=== PATIENT | female | born 1945 | race Caucasian/White ===

== ENCOUNTER 2017-01-04 02:24 | Observation (INO) | payer MEDICARE, BC ==
[~2017-01-04] VITALS: Ht 165.1 cm; Wt 79.1 kg
[2017-01-04 02:43] LABS: BASOPHILS 0.3 % (0-2); HEMATOCRIT 41.4 % (36.0-48.0); HEMOGLOBIN 13.7 g/dL (12-16); IMMATURE GRANULOCYTES 0.3 % (0-5); LYMPHOCYTES 30.5 % (15-50); MCH 30.9 pg (26.0-34.0); MCHC 33.1 g/dL (31.0-37.0); MCV 93.5 fL (80.0-100.0); MONOCYTES 7.3 % (2-11); NEUTROPHILS 58.6 % (40-80); PLATELET COUNT 224 10x3/uL (130-400); RBC 4.43 10x6/uL (4.00-5.40); RDW 13.4 % (11.5-14.5); WBC 7.6 10x3/uL (4.8-10.8)
[2017-01-04 02:58] LABS: ALBUMIN 3.9 g/dL (3.4-5.0); ALKALINE PHOSPHATASE 83 U/L (46-116); ALT (SGPT) 27 U/L (10-68); BILIRUBIN - TOTAL 0.31 mg/dL (0.2-1.3); CALC OSMOLALITY 290 mosm/kg (275-300); CALCIUM 9.6 mg/dL (8.5-10.1); CARBON DIOXIDE 30.1 mmol/L (21.0-32.0); CHLORIDE - SERUM 105 mmol/L (98-107); CREATININE - SERUM 0.8 mg/dL (0.6-1.3); GLUCOSE 125 mg/dL (74-106); POTASSIUM - SERUM 3.5 mmol/L (3.5-5.1); PROTEIN - SERUM 7.9 g/dL (6.4-8.2); SODIUM 144 mmol/L (136-145); UREA NITROGEN 20 mg/dL (7-18); eGFR NON AFRICAN AMERICAN 74 mL/min (90-120)
[2017-01-04 03:15] LABS: APPEARANCE CLEAR (CLEAR); BILIRUBIN NEGATIVE (NEGATIVE); COLOR YELLOW (YELLOW); GLUCOSE NEGATIVE (NEGATIVE); KETONE NEGATIVE (NEGATIVE); LEUKOCYTE ESTERASE NEGATIVE (NEGATIVE); NITRITE NEGATIVE (NEGATIVE); PROTEIN NEGATIVE (NEGATIVE); UROBILINOGEN NORMAL (NORMAL)
[2017-01-04 03:17] LABS: CREATINE KINASE 220 UL (21-215)
[2017-01-04 03:25] LABS: TROPONIN-I < 0.017 ng/mL (0.000-0.060)
[2017-01-04 03:26] LABS: CKMB 1.8 U/L (0.0-3.6)
--- NOTE | 2017-01-04 08:43 | NUR ---
TRANSFER FROM ER BY STRETCHER. OREINTED TO ROOM. CALL LIGHT IN REACH. WILL CONT. PLAN OF CARE.
[2017-01-04] MEDS ORDERED: TOPROL XL50 MG PO (08:57)
[2017-01-04] MEDS ORDERED: VALIUM 2 MG TAB2 MG PO (08:59)
[2017-01-04] MEDS ORDERED: BAYER CHEWABLE81 MG PO (09:07)
[2017-01-04] MEDS ORDERED: MICARDIS40 MG PO (09:24)
[2017-01-04 09:50] VITALS: BP 186/88; Ht 165.1 cm; Wt 79.1 kg
--- NOTE | 2017-01-04 11:21 | NUR ---
ECHO STARTED AT BS.
[2017-01-04 11:59] VITALS: BP 164/89
[2017-01-04 16:38] VITALS: BP 146/74
[2017-01-04 21:28] VITALS: BP 149/72
[2017-01-05 00:44] VITALS: BP 150/72
[2017-01-05 05:25] VITALS: BP 149/78
[2017-01-05] MEDS ORDERED: VYTORIN 10-20 M1 TAB PO (07:33)
[2017-01-05 08:00] VITALS: BP 151/77
[2017-01-05 11:03] LABS: T4 THYROXIN - FREE 0.91 ng/dL (0.76-1.46); THYROID STIMULATING HORMONE 1.47 uIU/mL (0.36-3.74)
--- NOTE | 2017-01-05 11:54 | NUR ---
Patient Name: DUNIA MCCLAIN Encounter No: [id number] : 1945 Primary Insurance: MEDICARE A & B Anticipated DC Date: 01-05-2017 Planned Disposition: Home DISCHARGE PLANNING NOTE: * Is the patient Alert and Oriented? Yes 0 * How many steps to enter\exit or inside your home? NONE 0 * PCP DR. MÁRQUEZ 0 * Pharmacy [facility] [address] 0 * Preadmission Environment Home with Family 0 * ADLs Independent 0 * Equipment CPAP Oxygen 0 * Other Equipment HOME/PORTABLE OXYGEN - PURCHASED INDEPENDENTLY [facility] - MEDICAL EQUIPMENT PROVIDER 0 * List name and contact numbers for known caregivers / representatives who currently or will assist patient after discharge: MARY MCCLAIN, SPOUSE, 0 * Community resources currently utilized None 0 * Please name any agencies selected above. NONE 0 * Additional services required to return to the preadmission environment? No 0 * Can the patient safely return to the preadmission environment? Yes 0 * Has this patient been hospitalized within the prior 30 days at any hospital? No 0 CM MET WITH PT IN ROOM TO DISCUSS DISCHARGE PLANNING AND NEEDS. PT REPORTS LIVING AT HOME INDEPENDENTLY WITH HER SPOUSE. PT HAS NO HOME/PORTABLE OXYGEN THAT SHE PURCHASED AND CPAP FROM [facility]. PT HAS NO OUTSIDE SERVICES ASSISTING IN THE HOME. CM DISCUSSED AVAILABILITY OF HOME HEALTH, REHAB SERVICES AND MEDICAL EQUIPMENT. PT DENIES DISCHARGE NEEDS, REPORTS HER SPOUSE WILL PICK HER UP FOR DISCHARGE HOME.MEDICARE OUTPATIENT OBSERVATION NOTICE PROVIDED AND EXPLAINED. PT PLANS TO DISCHARGE HOME WITH SPOUSE, NO ANTICIPATED NEEDS. ALINA MARTIN, CASE MANAGEMENT
[2017-01-05 12:00] VITALS: BP 141/69
--- NOTE | 2017-01-05 13:38 | NUR ---
UP ADLIB IN ROOM. GAIT STEADY. TELEMETRY SR. WILL MONITOR NEEDS.
[2017-01-05 16:00] VITALS: BP 144/7
--- NOTE | 2017-01-05 19:00 | NUR ---
INITIAL ROUNDS MADE. PT SITTING UP IN BED WATCHING TV. NO NEEDS OR C/O VOICED AT THIS TIME. CALL LIGHT IN REACH. DISCUSSED PLAN OF CARE. WILL CONT TO MONITOR.
--- NOTE | 2017-01-05 20:35 | NUR ---
PT INQUIRING ABOUT CPAP AND IF SHE HAS ANOTHER EPISODE LIKE SHE'D HAD AT HOME. EXPLAINED PT WILL BE CONT MONITORED AND WE WOULD BE ABLE TO SEE THE CHANGES IN HER TELE. ALSO ENCOURAGED HER TO CALL US IF SHE STARTED FEELING THE PALPITATIONS.
[2017-01-05 21:41] VITALS: BP 132/68
[2017-01-06 01:03] VITALS: BP 132/75
--- NOTE | 2017-01-06 03:03 | NUR ---
RESTING WELL WITH EYES CLOSED, CONT TO MONITOR.
[2017-01-06 05:36] VITALS: BP 161/81
--- NOTE | 2017-01-06 06:45 | NUR ---
PT REPORTS HAVING TO TAKE CPAP OFF LAST NIGHT DUE TO HEADACHE.
[2017-01-06] MEDS ORDERED: CATAPRES0.1 MG PO (07:56)
[2017-01-06 08:00] VITALS: BP 148/89
--- NOTE | 2017-01-06 09:08 | NUR ---
IV AND TELEMETRY DCD. DC PLANS GIVEN. UNDERSTANDING VOICED. ESCORTED TO CAR BY W/C.
== END 2017-01-06 09:09 | disposition home or self-care (01) ==
LOC: D.ER 02:24 → D.M2 08:06 → OBSVTIME 08:07 → D.M2 01-06 09:09
PROVIDERS: Emergency Medicine; Family Medicine; ADMIT Family Medicine
DX: I47.1 Supraventricular tachycardia (principal); G47.33 Obstructive sleep apnea (adult) (pediatric)

== ENCOUNTER 2017-02-04 05:28 | Emergency (ER) | payer MEDICARE, BC ==
[2017-01-04 09:50] VITALS: BMI 28.8
[~2017-02-04 05:28] MED LIST: BAYER CHEWABLE81 MG PO; CATAPRES0.1 MG PO; MICARDIS40 MG PO; TOPROL XL50 MG PO; VALIUM 2 MG TAB2 MG PO; VYTORIN 10-20 M1 TAB PO
[2017-02-04 05:58] LABS: BASOPHILS 0.3 % (0-2); EOSINOPHILS 2.3 % (0-7); HEMATOCRIT 37.7 % (36.0-48.0); HEMOGLOBIN 12.2 g/dL (12-16); IMMATURE GRANULOCYTES 0.3 % (0-5); MCH 30.6 pg (26.0-34.0); MCHC 32.4 g/dL (31.0-37.0); MCV 94.5 fL (80.0-100.0); MEAN PLATELET VOLUME 10.3 fL (7.4-10.4); MONOCYTES 5.4 % (2-11); NEUTROPHILS 72.7 % (40-80); PLATELET COUNT 223 10x3/uL (130-400); RBC 3.99 10x6/uL (4.00-5.40); RDW 13.1 % (11.5-14.5); WBC 6.9 10x3/uL (4.8-10.8)
[2017-02-04 06:14] LABS: ALBUMIN 3.6 g/dL (3.4-5.0); ALKALINE PHOSPHATASE 77 U/L (46-116); ALT (SGPT) 22 U/L (10-68); BILIRUBIN - TOTAL 0.49 mg/dL (0.2-1.3); CALC OSMOLALITY 284 mosm/kg (275-300); CALCIUM 8.9 mg/dL (8.5-10.1); CHLORIDE - SERUM 104 mmol/L (98-107); CREATININE - SERUM 0.7 mg/dL (0.6-1.3); GLUCOSE 124 mg/dL (74-106); PROTEIN - SERUM 7.3 g/dL (6.4-8.2); SODIUM 142 mmol/L (136-145); UREA NITROGEN 15 mg/dL (7-18); eGFR NON AFRICAN AMERICAN 87 mL/min (90-120)
[2017-02-04 06:22] LABS: CHOL - HDL RATIO 3.2 ratio (2.3-4.1); CHOLESTEROL, TOTAL 151 mg/dL (0-200); CKMB 1.6 U/L (0.0-3.6); CREATINE KINASE 177 UL (21-215); HDL CHOLESTEROL 47 mg/dL (32-96); LDL CHOLESTEROL 80 mg/dL (0-100); LDL-HDL RATIO 1.7 ratio (1.5-3.5); TRIGLYCERIDE 122 mg/dL (30-200)
[2017-02-04 06:25] LABS: TROPONIN-I < 0.017 ng/mL (0.000-0.060)
== END 2017-02-04 06:40 | disposition home or self-care (01) ==
LOC: D.ER 05:28
PROVIDERS: Family Medicine
DX: R07.9 Chest pain, unspecified (principal); I10 Essential (primary) hypertension; R00.2 Palpitations; M54.9 Dorsalgia, unspecified

== ENCOUNTER → 2017-06-14 14:20 | Outpatient (CLI) | payer MEDICARE, BC ==
[2017-01-04 09:50] VITALS: BMI 28.8
== END | disposition home or self-care (01) ==
LOC: D.MAMMO 13:00
DX: Z12.31 Encounter for screening mammogram for malignant neoplasm of breast (principal)

== ENCOUNTER → 2018-09-12 10:29 | Outpatient (CLI) | payer MEDICARE, BC ==
[2017-01-04 09:50] VITALS: BMI 28.8
== END | disposition home or self-care (01) ==
LOC: D.MRI 10:29
PROVIDERS: ATTEND Family Medicine
DX: M51.36 Other intervertebral disc degeneration, lumbar region (principal)

== ENCOUNTER → 2018-09-19 08:19 | Outpatient (CLI) | payer MEDICARE, BC ==
[2017-01-04 09:50] VITALS: BMI 28.8
== END | disposition home or self-care (01) ==
LOC: D.MRI 08:19
PROVIDERS: ATTEND Family Medicine
DX: S32.10XA Unspecified fracture of sacrum, initial encounter for closed fracture (principal); X58.XXXA Exposure to other specified factors, initial encounter; R19.00 Intra-abdominal and pelvic swelling, mass and lump, unspecified site

== ENCOUNTER 2018-10-15 14:13 | Emergency (ER) | payer MEDICARE, BC ==
[2018-10-15] MEDS ORDERED: PERCOCET 10-321 EAC1 PO (17:20)
[2018-10-15] MEDS ORDERED: VALIUM 2 MG TAB2 MG PO (17:21)
[2018-10-15] MEDS ORDERED: OXYCODONE HCL E20 MG PO (17:46)
== END 2018-10-15 18:08 | disposition home or self-care (01) ==
LOC: D.ER 14:13
DX: S32.119A Unspecified Zone I fracture of sacrum, initial encounter for closed fracture (principal); S32.129A Unspecified Zone II fracture of sacrum, initial encounter for closed fracture; X58.XXXA Exposure to other specified factors, initial encounter; Y93.9 Activity, unspecified; Y92.9 Unspecified place or not applicable; M51.36 Other intervertebral disc degeneration, lumbar region; M47.896 Other spondylosis, lumbar region

== ENCOUNTER 2018-10-16 22:44 | Inpatient (IN) | payer MEDICARE, BC ==
[~2018-10-16] VITALS: Ht 165.1 cm; Wt 82.0 kg
--- NOTE | ~2018-10-16 | OP ---
PATIENT NAME: LEXIE MCCLAIN MEDICAL RECORD: [id number] :41 LOCATION:[id number] ADMISSION DATE:10/17/18 SURGEON: TOMAS ALMANZA MD DATE OF OPERATION: 10/27/2018 PREOPERATIVE DIAGNOSES: 1. Sacral mass. 2. B-cell lymphoma. 3. Metastatic cancer, in need of IV access for chemotherapy. POSTOPERATIVE DIAGNOSES: 1. Sacral mass. 2. B-cell lymphoma. 3. Metastatic cancer, in need of IV access for chemotherapy. PROCEDURES: 1. Placement of left infraclavicular PowerPort under fluoroscopic guidance. 2. Immediate surgeon interpretation of the fluoroscopic images. SURGEON: Tomas Almanza MD SOLAR ENERGY TECHNICIAN: None. BLOOD LOSS: Minimal. ANESTHESIA: General. COMPLICATIONS: None. The risks, possible complications, and alternatives to the procedure were explained to the patient. She elects to proceed. OPERATIVE COURSE: The patient was conveyed to the operating room electively on 10/27/2018. General anesthesia was induced by the anesthesia staff. The left chest and left neck were sterilely prepped and draped. No radiologist was present for this procedure. Static fluoroscopic images were obtained and are kept in the PACS system. The left internal jugular vein was interrogated by the hand-held ultrasound and was percutaneously accessed on the first try in an antegrade fashion. A guidewire was passed easily. This was visualized under fluoroscopy. A small skin yaritza was accomplished around the wire. A counterincision was accomplished in the left infraclavicular anterior-superior chest. Sharp dissection was carried down to the level of the pectoralis fascia. A subcutaneous pocket was created in a caudad direction. I removed some of the subcutaneous adipose tissue from between the port pocket and the skin. This is to allow for easier access of the port. Over the wire, I dilated with a dilator sheath. The dilator and wire were removed. I then tunneled the PowerPort catheter from the chest incision to the neck incision. Through the sheath, I advanced the PowerPort catheter to the cavoatrial junction. The Peel-Away sheath was then removed. I then shortened the catheter. It was attached to the PowerPort. The locking device was firmly engaged. The port was then placed in the subcutaneous pocket OPERATIVE REPORT [id number] LEXIE MCCLAIN and was sutured with 3-point fixation to the underlying pectoralis fascia with 3-0 Prolenes. I irrigated in the port pocket. There was no bleeding. Final fluoroscopic images revealed the tip of the PowerPort catheter at the cavoatrial junction. There was no apparent kinking or twisting of the PowerPort catheter. Another image was obtained over the left lung apex. There was no apparent radiographic evidence of complication. The neck incision was closed with interrupted intracuticular 3-0 Vicryls. The port site was closed with interrupted intracuticular 3-0 Vicryls and then a running intracuticular 4-0 Vicryl. I then accessed the port. It accessed easily. It aspirated blood. I then injected heparinized saline. I kept the port accessed. A sterile dressing was applied. The patient was then extubated and conveyed to the postanesthesia care unit, where she was in stable condition. TRANSINT:[id number] Voice Confirmation ID: [id number] DOCUMENT ID: [id number] TOMAS ALMANZA MD CC: JANESSA MULTANI MD and ZHOU MÁRQUEZ [id number] DICTATION DATE: 10/27/18 1352 BIAS CUTTER: 10/27/18 1841 ADM IN [facility] [address] [id number]
[~2018-10-16 22:44] MED LIST changes: +OXYCODONE HCL E20 MG PO; +PERCOCET 10-321 EAC1 PO
--- NOTE | 2018-10-16 23:49 | NUR ---
PT ASSISTED WITH BEDPAN. VOIDED APPROX 300ML. SPECIMEN TO LAB
[2018-10-16 23:52] LABS: BASOPHILS 0.5 % (0-2); EOSINOPHILS 2.1 % (0-7); HEMATOCRIT 35.2 % (36.0-48.0); HEMOGLOBIN 11.8 g/dL (12-16); IMMATURE GRANULOCYTES 0.2 % (0-5); LYMPHOCYTES 18.7 % (15-50); MCH 29.7 pg (26.0-34.0); MCHC 33.5 g/dL (31.0-37.0); MCV 88.7 fL (80.0-100.0); MEAN PLATELET VOLUME 10.3 fL (7.4-10.4); MONOCYTES 6.7 % (2-11); NEUTROPHILS 71.8 % (40-80); PLATELET COUNT 264 10x3/uL (130-400); RBC 3.97 10x6/uL (4.00-5.40); RDW 13.4 % (11.5-14.5); WBC 8.5 10x3/uL (4.8-10.8)
[2018-10-16 23:59] LABS: APPEARANCE CLEAR (CLEAR); BILIRUBIN NEGATIVE (NEGATIVE); COLOR YELLOW (YELLOW); GLUCOSE NEGATIVE (NEGATIVE); KETONE NEGATIVE (NEGATIVE); NITRITE NEGATIVE (NEGATIVE); PROTEIN NEGATIVE (NEGATIVE); SPECIFIC GRAVITY 1.005 (1.005-1.020); UROBILINOGEN NORMAL (NORMAL)
[2018-10-17 00:16] LABS: ALBUMIN 3.2 g/dL (3.4-5.0); ALKALINE PHOSPHATASE 81 U/L (46-116); ALT (SGPT) 17 U/L (10-68); BILIRUBIN - TOTAL 0.42 mg/dL (0.2-1.3); CALC OSMOLALITY 281 mosm/kg (275-300); CALCIUM 8.9 mg/dL (8.5-10.1); CARBON DIOXIDE 29.4 mmol/L (21.0-32.0); CHLORIDE - SERUM 102 mmol/L (98-107); CREATININE - SERUM 0.7 mg/dL (0.6-1.3); GLUCOSE 110 mg/dL (74-106); POTASSIUM - SERUM 4.2 mmol/L (3.5-5.1); PROTEIN - SERUM 7.1 g/dL (6.4-8.2); SODIUM 138 mmol/L (136-145); UREA NITROGEN 27 mg/dL (7-18); eGFR NON AFRICAN AMERICAN 86 mL/min (90-120)
[2018-10-17 00:26] LABS: CREATINE KINASE 153 UL (21-215); PRO BNP 243 pg/mL (0-450)
[2018-10-17 00:30] LABS: TROPONIN-I < 0.017 ng/mL (0.000-0.060)
--- NOTE | 2018-10-17 02:05 | NUR ---
PT ARRIVED TO M3 WITH HOSPITAL STAFF FROM ER. PT ALERT AND ORIENTED.
[2018-10-17 02:34] VITALS: BP 106/59; BMI 28.8
[2018-10-17] MEDS ORDERED: ZYRTEC10 MG PO (02:46)
[2018-10-17] MEDS ORDERED: OMEGA-3100 MG PO (02:46)
[2018-10-17] MEDS ORDERED: KRILL OIL 1,001 EAC1 PO (02:46)
[2018-10-17 05:49] VITALS: BP 113/56
--- NOTE | 2018-10-17 07:15 | NUR ---
AM ROUNDS- PT RESTING COMFORTABLY IN BED, EASILY AROUSES TO VOICE. RESP EVEN AND NONLABORED ON 2L. LT AC SL. PT A/O X4. ASKING FOR A CUP OF COFFEE, INFORMED PT THAT I WOULD HAVE TO MAKE SOME AND THEN I WOULD BRING IT TO HER. PT DENIES ANY OTHER NEEDS AT THIS TIME. BEDSIDE RAILS X2, CALL LIGHT IN REACH, FAMILY AT BEDSIDE, NAD NOTED, WILL CONTINUE PLAN OF CARE.
--- NOTE | 2018-10-17 07:54 | NUR ---
GAVE 1MG OF DILAUDID FOR PAIN LEVEL OF 10/10 AND 4MG OF ZOFRAN. HELPED PT TO BATHROOM AND BACK TO BED, PT DENIES ANY OTHER NEEDS AT THIS TIME. CALL JOSÉ MIGUEL LANDA, FAMILY AT BEDSIDE, NAD NOTED, WILL CONTINUE TO MONITOR.
[2018-10-17 08:00] VITALS: BP 113/56
--- NOTE | 2018-10-17 10:18 | NUR ---
PT TO MRI AT THIS TIME VIA WHEELCHAIR, NAD NOTED.
[2018-10-17 12:00] VITALS: BP 108/56
--- NOTE | 2018-10-17 13:41 | NUR ---
PT RESTING COMFORTABLY IN BED, PROVIDED PT WITH A SODA. PT DENIES ANY OTHER NEEDS AT THIS TIME. CALL LIGHT IN REACH, FAMILY AT BEDSIDE, NAD NOTED, WILL CONTINUE TO MONITOR.
--- NOTE | 2018-10-17 14:05 | NUR ---
650MG OF TYLENOL GIVEN FOR PAIN LEVEL OF 4/10 TO HEAD. ALSO PROVIDED PT WITH CUP OF ICE WATER. PT DENIES ANY OTHER NEEDS AT THIS TIME. CALL LIGHT IN REACH, FAMILY AT BEDSIDE, NAD NOTED, WILL CONTINUE TO MONITOR.
[2018-10-17 15:04] VITALS: BMI 28.7
[2018-10-17 16:00] VITALS: BP 146/76
--- NOTE | 2018-10-17 16:59 | NUR ---
CONSENTS SIGNED BY PT AND PLACED ON CHART, PT RESTING COMFORTABLY IN BED, DENIES ANY NEEDS AT THIS TIME. FAMILY AT BEDSIDE, CALL LIGHT IN REACH.
--- NOTE | 2018-10-17 19:45 | NUR ---
PT IS RESTING IN BED WITH EYES OPEN. ALERT AND ORIENTED X 3. VOICES COMPLAINT OF LEFT HIP PAIN LEVEL OF 3 AT THIS TIME. PT REPOSITIONING HERSELF OFTEN. ALREADY MEDICATED PER MAR FOR BREAKTHROUGH PAIN. LEFT AC SALINE LOCK NOTED. FLUSHED EASILY WITH NS. DAUGHTER IS AT BEDSIDE. SR'S ARE UP X 2 IN BED. CALL LIGHT AND BEDSIDE TABLE ARE WITHIN EASY REACH.
[2018-10-17 21:20] VITALS: BP 161/76
--- NOTE | 2018-10-17 23:41 | NUR ---
PT IS RESTING QUIETLY IN BED WITH EYES CLOSED. FAMILY HAS STEPPED OUT OF THE BUILDING AT THIS TIME.
[2018-10-18] VITALS (9 sets, daily range): BP systolic 93–175; BP diastolic 48–86
--- NOTE | 2018-10-18 01:12 | NUR ---
PT RESTING IN BED WITH EYES CLOSED.
--- NOTE | 2018-10-18 02:58 | NUR ---
I have reviewed this patient and I concur with the Shift Assessment completed by the Licensed Practical Nurse today this shift.
--- NOTE | 2018-10-18 06:17 | NUR ---
PT UP TO BATHROOM WITH DAUGHTERS ASSISTANCE. NO ACUTE DISTRESS NOTED.
[2018-10-18 07:20] LABS: BASOPHILS 0.4 % (0-2); EOSINOPHILS 3.1 % (0-7); HEMATOCRIT 35.7 % (36.0-48.0); HEMOGLOBIN 11.6 g/dL (12-16); IMMATURE GRANULOCYTES 0.1 % (0-5); LYMPHOCYTES 21.7 % (15-50); MCH 29.7 pg (26.0-34.0); MCHC 32.5 g/dL (31.0-37.0); MEAN PLATELET VOLUME 10.3 fL (7.4-10.4); MONOCYTES 5.9 % (2-11); NEUTROPHILS 68.8 % (40-80); PLATELET COUNT 266 10x3/uL (130-400); RBC 3.91 10x6/uL (4.00-5.40); RDW 13.7 % (11.5-14.5); WBC 7.3 10x3/uL (4.8-10.8)
--- NOTE | 2018-10-18 07:23 | NUR ---
PT RUPESH CAME TO HERNANDEZ AND STATED THAT PT WAS C/O HIGH BLOOD PRESSURE. CHECKED PT BLOOD PRESSURE, BP 175/86. GAVE PT SCHEDULED CATAPRESS 0.1 MG. TOOK MED WITHOUT DIFFICULTY. WILL REASSESS BP.
--- NOTE | 2018-10-18 07:26 | NUR ---
PT ANXIOUS. PRN VALIUM GIVEN PO WITH SMALL SIP OF WATER.
[2018-10-18 07:32] LABS: CALCIUM 9.1 mg/dL (8.5-10.1); CARBON DIOXIDE 32.5 mmol/L (21.0-32.0); POTASSIUM - SERUM 4.5 mmol/L (3.5-5.1)
[2018-10-18 07:33] LABS: CREATININE - SERUM 0.9 mg/dL (0.6-1.3)
[2018-10-18 07:39] LABS: MCV 91.3 fL (80.0-100.0)
[2018-10-18 08:01] LABS: APTT 47.2 SECONDS (22.8-39.4); INR 1.05 (0.85-1.17); PROTIME 13.2 SECONDS (11.6-15.0)
--- NOTE | 2018-10-18 08:17 | NUR ---
PT C/O PAIN IN HIP OF A 10/10 ON A NUMERIC PAIN SCALE. DILAUDID 1 MG GIVEN TO IV IN L AC. IV PATENT, NO REDNESS OR EDEMA NOTED. PT RELAXED AFTER MEDICATION GIVEN. WILL CTM.
--- NOTE | 2018-10-18 08:45 | NUR ---
PT TO IR VIA BED
--- NOTE | 2018-10-18 10:02 | NUR ---
PT BACK TO FLOOR VIA BED. VITALS STABLE. PT DROWSY. STATES THAT SHE FEELS BETTER AT THIS TIME. WILL CONTINUE TO MONITOR AND CONTINUE VITAL CHECKS.
--- NOTE | 2018-10-18 11:44 | NUR ---
PT THROWING UP GREEN EMESIS. ZOFRAN GIVEN TO IV IN L AC. IV PATENT NO REDNESS OR EDEMA NOTED. CLEAN LINENS APPLIED. PT STATES SHE FEELS BETTER.
--- NOTE | 2018-10-18 13:55 | NUR ---
PT C/O PAIN IN L HIP. DILAUDID GIVEN TO IV IN L AC. IV PATENT NO REDNESS OR EDEMA NOTED.
--- NOTE | 2018-10-18 16:34 | NUR ---
PT UNABLE TO HOLD DOWN FOOD OR WATER. NS STARTED AT 60 CC/HR. PT THROWING UP. ZOFRAN GIVEN. NEW IV STARTED PER PT REQUEST TO L FA 22 G PATENT NO REDNESS OR EDEMA NOTED. PT ASSISTED TO BATHROOM. NEW LINENS APPLIED. PT C/O CHEST DISCOMFORT WHEN THROWING UP. VITALS STABLE. 96 SINUS ON TELE. NO FURTHER CONCERNS AT THIS TIME. WILL CONTINUE TO MONITOR. NO CARDIAC HX NOTED.
--- NOTE | 2018-10-18 18:06 | NUR ---
PT THROWING UP GREEN/YELLOW WATERY EMESIS. IM PHENERGAN GIVEN TO L DELTOID. PT STATES SHE FEELS WORSE WHEN SHE LAYS DOWN. NS TO L FA IV. PATENT, NO REDNESS OR SWELLING NOTED AT THIS TIME. WILL CTM.
--- NOTE | 2018-10-18 20:07 | NUR ---
PT LYING IN BED. EYES CLOSED. FAMILY IN ROOM. NO SIGNS OF DISTRESS OR PAIN. BED IN LOW. SIDE RAILS X2. PT IS ON 2L OF O2. A/O X4. BOWEL ACTIVE X4. LUNGS CLEAR. FAMILY HELPS PT TO AND FROM BATHROOM. WILL CONTINUE TO MONITOR.
--- NOTE | 2018-10-18 21:24 | NUR ---
TRANSFERRED PT TO ROOM 2140. REPORT GIVEN TO JOY MENESES ON MED2. FAMILY WITH PT. TRANSFERRED BY BED.
--- NOTE | 2018-10-18 21:30 | NUR ---
RECIEVED FROM MED THREE VIA STRETCHER NO CHANGES NOTED WITH ORDERS FAMILY IS WITH PT ....BED IS LOCKED AND LOW CALL LIGHT IS IN REACH.
[2018-10-19 00:46] VITALS: BP 122/85
--- NOTE | 2018-10-19 01:45 | NUR ---
PT RESTING IN BED, DAUGHTER AT BEDSIDE. SHIFT ASSESSMENT PERFORMED. DENIES ANY NEEDS AT THIS TIME, WILL CONT TO FOLLOW POC
[2018-10-19 05:27] LABS: BASOPHILS 0.4 % (0-2); EOSINOPHILS 1.1 % (0-7); HEMATOCRIT 34.4 % (36.0-48.0); HEMOGLOBIN 11.1 g/dL (12-16); IMMATURE GRANULOCYTES 0.1 % (0-5); LYMPHOCYTES 18.4 % (15-50); MCH 29.1 pg (26.0-34.0); MCHC 32.3 g/dL (31.0-37.0); MCV 90.3 fL (80.0-100.0); MEAN PLATELET VOLUME 10.6 fL (7.4-10.4); MONOCYTES 8.8 % (2-11); NEUTROPHILS 71.2 % (40-80); PLATELET COUNT 258 10x3/uL (130-400); RBC 3.81 10x6/uL (4.00-5.40); RDW 13.5 % (11.5-14.5); WBC 8.4 10x3/uL (4.8-10.8)
[2018-10-19 05:43] VITALS: BP 91/52
[2018-10-19 06:27] LABS: CALC OSMOLALITY 291 mosm/kg (275-300); CALCIUM 9.1 mg/dL (8.5-10.1); CARBON DIOXIDE 30.9 mmol/L (21.0-32.0); CHLORIDE - SERUM 106 mmol/L (98-107); CREATININE - SERUM 0.7 mg/dL (0.6-1.3); GLUCOSE 109 mg/dL (74-106); POTASSIUM - SERUM 4.3 mmol/L (3.5-5.1); SODIUM 143 mmol/L (136-145); UREA NITROGEN 28 mg/dL (7-18); eGFR NON AFRICAN AMERICAN 86 mL/min (90-120)
--- NOTE | 2018-10-19 09:04 | NUR ---
PT DAUGHTER AT BEDSIDE WHILE NURSE WAS GIVING PO MEDICATIONS. NURSE OPENED CLONIDINE AND TOLD PT WHAT PILL WAS AND WHAT IT WAS FOR. DAUGHTER STOPPED NURSE AND STATES PT ONLY TAKES CLONIDINE PRN AND THAT PT HAS BEEN HAVING BAD HEADACHES. HELD CLONIDINE. REVIEWED MED REC WITH DAUGHTER. PAGED . NEW ORDER RECIEIVED TO RESTART PT HOME BP MEDS AND CHANGE CLONIDINE TO PRN. NOTIFIED PT AND DAUGHTER OF NEW ORDERS.
[2018-10-19 10:59] LABS: APPEARANCE CLEAR (CLEAR); BILIRUBIN NEGATIVE (NEGATIVE); COLOR YELLOW (YELLOW); GLUCOSE NEGATIVE (NEGATIVE); KETONE NEGATIVE (NEGATIVE); NITRITE NEGATIVE (NEGATIVE); PROTEIN NEGATIVE (NEGATIVE); UROBILINOGEN NORMAL (NORMAL)
[2018-10-19 16:07] VITALS: Ht 165.1 cm; Wt 82.0 kg
--- NOTE | 2018-10-19 18:05 | NUR ---
PT FAMILY CALLED NURSE TO ASSESS PT BACK. UPON ASSESSMENT PT HAS A RASH TO HER RIGHT SIDE BACK. PT IS COMPLAINING OF ITCHING. PT STATES SHE WILL NOT TAKE ANY PO BENADRYL. PAGED . PER , HOLD PT OXYCOTIN UNTIL CAN ASSESS PT. GIVE PT PEPCID 20MG IVP NOW AND Q12 HR X4 DOSES AND ORDER PT BENADRYL CREAM TO HELP THE RASH.
--- NOTE | 2018-10-19 19:58 | NUR ---
RESUMING PT CARE. PT IS ALERT LAYING IN BED. DAUGHTER AT BEDSIDE. NO ACUTE S/S OF DISTRESS NOTED. NO C/O VOICED. BED IN LOW POSITION WITH CALL LIGHT IN REACH WILL CONTINUE TO MONITOR PT AND FOLLOW PLAN OF CARE.
[2018-10-19 21:07] VITALS: BP 108/57
[2018-10-20] VITALS: BP 127/64
--- NOTE | 2018-10-20 03:23 | NUR ---
PT DAUGHTER STATES THAT PT IS HAVING ANXIETY AND IS NOT RESTING. VALIUM WAS REQUESTED. VALIUM 2 MG TABLET GIVEN PO. BED IN LOW POSITION WITH CALL LIGHT IN REACH. PT DAUGHTER IS AT BEDSIDE. WILL CONTINUE TO MONITOR PT AND FOLLOW PLAN OF CARE.
--- NOTE | 2018-10-20 04:16 | NUR ---
I have reviewed this patient and I concur with the Shift Assessment completed by the Licensed Practical Nurse today this shift.
[2018-10-20 05:02] VITALS: BP 139/65
[2018-10-20 06:30] LABS: BASOPHILS 0.9 % (0-2); EOSINOPHILS 3.2 % (0-7); HEMATOCRIT 34.9 % (36.0-48.0); IMMATURE GRANULOCYTES 0.3 % (0-5); LYMPHOCYTES 20.3 % (15-50); MCHC 31.5 g/dL (31.0-37.0); MCV 92.1 fL (80.0-100.0); MEAN PLATELET VOLUME 10.3 fL (7.4-10.4); MONOCYTES 7.5 % (2-11); NEUTROPHILS 67.8 % (40-80); PLATELET COUNT 227 10x3/uL (130-400); RBC 3.79 10x6/uL (4.00-5.40); RDW 13.7 % (11.5-14.5); WBC 6.9 10x3/uL (4.8-10.8)
[2018-10-20 06:54] LABS: ALBUMIN 2.7 g/dL (3.4-5.0); ALKALINE PHOSPHATASE 71 U/L (46-116); ALT (SGPT) 17 U/L (10-68); BILIRUBIN - TOTAL 0.31 mg/dL (0.2-1.3); CALC OSMOLALITY 284 mosm/kg (275-300); CALCIUM 8.2 mg/dL (8.5-10.1); CHLORIDE - SERUM 105 mmol/L (98-107); CREATININE - SERUM 0.7 mg/dL (0.6-1.3); GLUCOSE 105 mg/dL (74-106); POTASSIUM - SERUM 4.2 mmol/L (3.5-5.1); PROTEIN - SERUM 6.3 g/dL (6.4-8.2); SODIUM 142 mmol/L (136-145); eGFR NON AFRICAN AMERICAN 86 mL/min (90-120)
[2018-10-20 06:57] LABS: UREA NITROGEN 17 mg/dL (7-18)
--- NOTE | 2018-10-20 07:10 | NUR ---
REPORT RECIEVED FROM OIL BAY TECHNICIAN AND PATIENT CARE ASSUMED. PATIENT LAYING IN BED AWAKE, ALERT AND ORIENTED X 4. PATIENTS DTR AT BEDSIDE. PATTERN GATER PUMP WITH DILAUDED EMPTY AND NEW DILAUDED SYRINGE PLACED. VSS. PATIENT DENIES ANY NEEDS OR PAIN. WILL CONTINUE WITH PLAN OF CARE. SR UP X 2 BED IN LOW POSITION AND CALL LIGHT IN REACH.
--- NOTE | 2018-10-20 07:50 | NUR ---
PATIENT COMPLAINS OF ANXIETY AND REQUEST VALIUM. PATIENT MEDICATED PER SEP. DTR AT BEDSIDE. SR UP X 2 BED IN LOW POSTION AND CALL LIGHT IN REACH. WILL CONTINUE TO MONITOR.
[2018-10-20 13:13] LABS: CA125 30.8 U/mL (0.0-38.1); CEA 1.6 ng/mL (0.0-4.7)
--- NOTE | 2018-10-20 16:43 | NUR ---
PATIENT RETURNED FROM RADIOLOGY . PATIENT IS STABLE AND VSS. PATIENT DENIES ANY NEEDS OR PAIN. FAMILY AT BEDSIDE. WILL CONTINUE TO MONITOR. SR UP X 2 BED IN LOW POSTION AND CALL LIGHT IN REACH.
[2018-10-20 16:53] VITALS: BP 172/86
--- NOTE | 2018-10-20 17:03 | NUR ---
PATIENT COMPLAINS OF PAIN TO LT HIP AT A 10. MEDICATED PER MAR WITH DILAUDED 1 MG. VSS. FAMILY AT BEDSIDE. WILL CONTINUE TO MONITOR. SR UP X 2 BED IN LOW POSITION AND CALL LIGHT IN REACH.
--- NOTE | 2018-10-20 20:55 | NUR ---
RESUMING PT CARE. PT IS ALERT LAYING IN BED. FAMILY AT BEDSIDE. NO ACUTE S/S OF DISTRESS NOTED. BED IN LOW POSITION WITH CALL LIGHT IN REACH. SIDE RAILS UP X 2. WILL CONTINUE TO MONITOR PT AND FOLLOW PLAN OF CARE.
[2018-10-20 21:14] VITALS: BP 184/95
[2018-10-21 03:53] VITALS: BP 146/68
--- NOTE | 2018-10-21 07:43 | NUR ---
REPORT RECEIVED. WILL CONTINUE WITH POC. PT CURRENTLY LYING SUPINE. CALL LIGHT W/I REACH. FAMILY AT BEDSIDE. RR EVEN AND UNLABORED ON 4L 02. NS INFUSING @60ML/HR AND DILUADID BOAT HOIST OPERATOR INFUSING @0.2/04/07 VIA L.FOR PIV. NO S/S OF DISTRESS NOTED. PT DENIES ANY NEEDS AT THIS TIME. WILL CTM.
[2018-10-21 08:00] VITALS: BP 140/72
[2018-10-21 11:52] VITALS: BP 146/62
--- NOTE | 2018-10-21 13:55 | NUR ---
Nutrition Follow Up: Chart reviewed Diet: Regular PO Intake: 18% meal avg BM: 10/16/18 - no BM x 5 days Labs and meds reviewed Rec continue current diet. Rec consider an appetite stimulant. Will order supplements BID and continue to honor food preferences. RD following.
[2018-10-21 14:11] LABS: SPE - ALPHA-1 GLOBULIN 0.3 g/dL (0.0-0.4); SPE - ALPHA-2 GLOBULIN 0.8 g/dL (0.4-1.0); SPE - GAMMA GLOBULIN 0.8 g/dL (0.4-1.8); SPE - M-SPIKE Not Observed g/dL (Not Observed); SPE - TOTAL PROTEIN 5.9 g/dL (6.0-8.5)
[2018-10-21 15:05] VITALS: BP 147/84
--- NOTE | 2018-10-21 18:31 | NUR ---
PT ASSISTED WITH SHOWER. NEW LINENS APPLIED AND FAMILY ASSISTED WITH BRUSHING TEETH AND DOING HAIR. NEW PIV INITIATED IN LEFT FOREARM 20 GA X1 ATTEMPT. PT TOLERATED WELL. FLUSHED WITH 10ML NS TO CONFIRM PATENCY. RESTARTED INFUSION OF NS @60ML/HR AND DILUADID SYSTEM CONTROLLER VIA L.FOR PIV. RR EVEN AND UNLABORED ON RA. NO S/S OF DISTRESS NOTED. PT DENIES ANY PAIN AT THIS TIME. WILL PASS REPORT AND CONTINUE WITH POC.
[2018-10-21 20:06] LABS: CA 27-29 24.4 U/mL (0.0-38.6)
[2018-10-21 20:32] VITALS: BP 143/79
[2018-10-22 00:47] VITALS: BP 132/65
--- NOTE | 2018-10-22 02:57 | NUR ---
I have reviewed this patient and I concur with the Shift Assessment completed by the Licensed Practical Nurse today this shift.
[2018-10-22 05:24] VITALS: BP 167/79
[2018-10-22 06:01] LABS: BASOPHILS 0.7 % (0-2); EOSINOPHILS 5.1 % (0-7); HEMATOCRIT 32.6 % (36.0-48.0); HEMOGLOBIN 10.5 g/dL (12-16); IMMATURE GRANULOCYTES 0.2 % (0-5); LYMPHOCYTES 21.9 % (15-50); MCHC 32.2 g/dL (31.0-37.0); MEAN PLATELET VOLUME 10.3 fL (7.4-10.4); MONOCYTES 6.9 % (2-11); NEUTROPHILS 65.2 % (40-80); PLATELET COUNT 249 10x3/uL (130-400); RBC 3.62 10x6/uL (4.00-5.40); RDW 13.5 % (11.5-14.5); WBC 5.5 10x3/uL (4.8-10.8)
[2018-10-22 06:05] LABS: MCV 90.1 fL (80.0-100.0)
[2018-10-22 06:09] LABS: CALC OSMOLALITY 282 mosm/kg (275-300); CALCIUM 8.2 mg/dL (8.5-10.1); CARBON DIOXIDE 31.9 mmol/L (21.0-32.0); CHLORIDE - SERUM 106 mmol/L (98-107); CREATININE - SERUM 0.6 mg/dL (0.6-1.3); GLUCOSE 117 mg/dL (74-106); SODIUM 142 mmol/L (136-145); eGFR NON AFRICAN AMERICAN > 90 mL/min (90-120)
[2018-10-22 06:10] LABS: UREA NITROGEN 10 mg/dL (7-18)
[2018-10-22 08:10] VITALS: BP 146/78
--- NOTE | 2018-10-22 10:55 | NUR ---
MORNING ASSESSMENT COMPLETE. SEE ASSESSMENT FLOWSHEET FOR FURTHER DETIALS. PT LYING IN BED. CONFUSION. NOTED. DAUGTHER AT BEDSIDE. DENIES NEEEDS AT THIS TIME. CL IN REACH. SIDE RAILS UP X3 FOR PT SAEFTY. BED IN LOWEST POSITION.
[2018-10-22 11:51] VITALS: BP 141/83
[2018-10-22 16:01] VITALS: BP 159/80
--- NOTE | 2018-10-22 19:31 | NUR ---
RECIEVED LAYING IN BED WITH EYES OPEN AND SEVERAL FAMILY MEMBERS AT BEDSIDE. IV TO LEFT FA WITH NS @ 60CC/HR AND TAX MANAGER CPA OF DILAUDID AT 0.2/04/07. TELEMETRY IN PLACE AND NOT WORKING. BATTERIES REPLACED AND TELEMETRY WORKIN AT THIS TIME. CONT TO RECIEVE LOVENOX. DENIES ANY NEEDS AT THIS TIME.
[2018-10-22 21:10] VITALS: BP 183/85
--- NOTE | 2018-10-23 01:35 | NUR ---
RESTING IN BED WITH EYES CLOSED AT THIS TIME. NO S/S OF DISTRESS OBSERVED. DTR AT BEDSIDE.
[2018-10-23 05:51] VITALS: BP 151/79
--- NOTE | 2018-10-23 08:08 | NUR ---
MORNING ROUNDS MADE. PT LAYING IN BED RESTING. STATES PAIN IN LOWER BACK/HIP/ AND L FLANK REGION. ALERT, CONFUSED TO TIME AND PLACE, MAY BE DUE TO PAIN MEDICATION. REORIENTED PATIENT THAT SHE WAS AT [facility]. RM AIR. L FA IV WITH NS @ 60 CC/HR AND DILAUDID CHRISTMAS TREE FARM MANAGER 2-10-4. NO REDNESS OR EDEMA NOTED TO IV. DRSG C/D/I. PT LAST BOLUS WAS AT 0530. NORMAL SINUS ON TELE. PT WAS NOTED WEAR BIPAP THIS MORNING. PT AND FAMILY MAIN CONCERN TODAY IS PAIN CONTORL AND COMFORT. EDEMA NOTED TO L FLANK. LARGE GLASS OF ICE WATER SUPPLIED FOR PT. LUNGS CLEAR. NO FURTHER CONCERNS AT THIS TIME. CL IN REACH. FALL PRECAUTIONS IN PLACE. FAMILY AT BEDSIDE. WILL CTM.
[2018-10-23 08:14] VITALS: BP 147/93
--- NOTE | 2018-10-23 08:23 | NUR ---
PT GIVEN A 1 MG BOLUS FOR BREAK THROUGH PAIN.
--- NOTE | 2018-10-23 10:08 | NUR ---
PT LAYING IN BED C/O PAIN IN L HIP/FLANK. FENTYNL PATCH APPLIED TO L SHOULDER. VALIUM GIVEN FOR AGGITATION. ROOM FULL OF FAMILY. PT GOT UP WITH WALKER TO CHAIR AT BEDSIDE WHILE FOAM PAD WAS APPLIED TO PT BED. PT ASSISTED BACK TO BED X 1 ASSISTED AND WALKER. AMBULATION WEAK AND UNSTEADY. LAID PT ON R SIDE AND CUSHIONED WITH PILLOWS. IV TO L FA, PATENT, NO REDNESS OR EDEMA NOTED. NO FURTHER CONCERNS AT THIS TIME. FALL PRECAUTIONS IN PLACE. WILL CTM.
--- NOTE | 2018-10-23 10:23 | MORECARE ---
CASE MANAGEMENT DISCHARGE SUMMARY PATIENT: LEXIE MCCLAIN UNIT: [id number] ADM DATE: 10/17/18 AGE: 73 : 43 SEX: F ROOM/BED: D.7120 AUTHOR: ROXANA SEHPHERD PHYSICIAN: REFERRING PHYSICIAN: ZHOU MÁRQUEZ MD DATE OF SERVICE: 10/23/18 Discharge Plan Patient Name: LEXIE MCCLAIN Facility: [facility]:[place] : 1945 Planned Disposition: Home with Home Health Anticipated Discharge Date: 11/01/18 Discharge Date: Expected LOS: 15 Initial Reviewer: [email or web address] Initial Review Date: 10/23/2018 Generated: 10/23/18 11:23 am DCP- Discharge Planning Updated by [email or web address]: Zoe Ugarte on 10/17/18 1:[address] THIRD VISIT TODAY TO MEET FOR INITIAL ASSESSMENT. THE DAUGHTER CAME TO DOOR CRYING AND STATED PLEASE NOT TO DISTURB THE PATIENT. PLAN FOR IR CONSULT FOR BIOPSY OF SACRUM. DR MÁRQUEZ VISITED TWICE TODAY. DR TURCIOS VISITED THIS PM REGARDING MRI FINDINGS. DCP- Discharge Planning Updated by [email or web address]: Zoe Ugarte on 10/17/18 10:[address] CM TO BEDSIDE FOR INITIAL ASSESSMENT. THE PATIENT IS UNCOMFORTABLE. RECENTLY RETURNED TO HER ROOM FROM MRI. SHE HAS NOT EATEN. SHE REQUEST CM TO RETURN LATER TODAY IF POSSIBLE. HONORING PATIENT'S REQUEST. DCP- Discharge Planning Updated by [id number]: Zoe Ugarte on 10/17/18 9:[address] PATIENT ARRIVED ON UNIT FROM ER AT 0205 THIS AM. CM TO VISIT WITH PATIENT FOR ASSESSMENT AND DISCHARGE PLANNING. SHE IS BEING TRANSPORTED TO MRI FOR STUDY WITH AND WITHOUT CONTRAST OF PELVIS. Patient Name: LEXIE MCCLAIN Page [phone] at 1023 All edits/amendments must be made on the electronic document DICTATION DATE: 10/23/18 1023 LOCOMOTIVE FIRER: ANA LUISA 10/23/18 1023 RPT#: [id number] DC DATE: STATUS: ADM IN [facility] [address] [place] [address] END OF REPORT
--- NOTE | 2018-10-23 10:30 | MORECARE ---
CASE MANAGEMENT DISCHARGE SUMMARY PATIENT: LEXIE MCCLAIN UNIT: [id number] ADM DATE: 10/17/18 AGE: 73 : 43 SEX: F ROOM/BED: D.6170 AUTHOR: ROXANA SHEPHERD PHYSICIAN: REFERRING PHYSICIAN: ZHOU MÁRQUEZ MD DATE OF SERVICE: 10/23/18 Discharge Plan Patient Name: LEXIE MCCLAIN Facility: [facility]:[place] : 1945 Planned Disposition: Home with Home Health Anticipated Discharge Date: 11/01/18 Discharge Date: Expected LOS: 15 Initial Reviewer: [email or web address] Initial Review Date: 10/23/2018 Generated: 10/23/18 11:29 am Comments DCP- Discharge Planning Updated by [id number]: Anna Hinds on 10/23/18 9:[address] Patient Name: LEXIE MCCLAIN Admission Status: ER Accout number: [id number] Admission Date: 10-17-2018 : 1945 Admission Diagnosis:LOW BACK PAIN Attending: ZHOU MÁRQUEZ Current LOS: 6 Anticipated DC Date: 11-01-2018 Planned Disposition: Home with Home Health Primary Insurance: MEDICARE A & B Discharge Planning Comments: CM MET WITH PATIENT AND FAMILY (DAUGHTER-CASS) REGARDING D/C NEEDS AND PLANS. PATIENT HAS 2 STEPS TO ENTER HOME AND HER FAMILY WILL DRIVE HER IF PATIENT GOES HOME PER DAUGHTER. PATIENT IS INDEPENDENT WITH HER CARE AND HAS A WALKER, WHEELCHAIR, GLUCOMETER, SHOWER CHAIR, AND C-PAP AT HOME. PATIENTS PCP IS DR. MÁRQUEZ AND USES [facility] FOR HER PHARMACY. PATIENTS DAUGHTER SIGNED THE [employer] FORM FOR [facility] [employer] IF NEEDED. CM WILL CONTINUE TO FOLLOW PATIENT WITH D/C NEEDS AND PLANS. PCP DR[facility] Senior Credit Analyst: Anna Hinds DCP- Discharge Planning Updated by [email or web address]: Zoe Ugarte on 10/17/18 1:[address] THIRD VISIT TODAY TO MEET FOR INITIAL ASSESSMENT. THE DAUGHTER CAME TO DOOR CRYING AND STATED PLEASE NOT TO DISTURB THE PATIENT. PLAN FOR IR CONSULT FOR BIOPSY OF SACRUM. DR MÁRQUEZ VISITED TWICE TODAY. DR TURCIOS VISITED THIS PM REGARDING MRI FINDINGS. DCP- Discharge Planning Updated by [email or web address]: Zoe Ugarte on 10/17/18 10:[address] CM TO BEDSIDE FOR INITIAL ASSESSMENT. THE PATIENT IS UNCOMFORTABLE. RECENTLY RETURNED TO HER ROOM FROM MRI. SHE HAS NOT EATEN. SHE REQUEST CM TO RETURN LATER TODAY IF POSSIBLE. HONORING PATIENT'S REQUEST. DCP- Discharge Planning Updated by [id number]: Zoe Ugarte on 10/17/18 9:[address] PATIENT ARRIVED ON UNIT FROM ER AT 0205 THIS AM. CM TO VISIT WITH PATIENT FOR ASSESSMENT AND DISCHARGE PLANNING. SHE IS BEING TRANSPORTED TO MRI FOR STUDY WITH AND WITHOUT CONTRAST OF PELVIS. DCPIA - Discharge Planning Initial Assessment Updated by [email or web address]: Anna Hinds on 10/23/18 10:25 am * Is the patient Alert and Oriented? Yes * How many steps to enter\exit or inside your home? * PCP DR. MÁRQUEZ * Pharmacy [facility] * Preadmission Environment Home with Family * ADLs Independent * Equipment CPAP Glucometer Shower Chair Walker Wheelchair * List name and contact numbers for known caregivers / representatives who currently or will assist patient after discharge: COLTEN [phone] MARY (SPOUSE) [phone] * Verbal permission to speak to the caregivers and representatives has been obtained from the patient. Yes * Community resources currently utilized None * Additional services required to return to the preadmission environment? Yes * Can the patient safely return to the preadmission environment? Yes * Has this patient been hospitalized within the prior 30 days at any hospital? No Coverage Notice Reviewer: [id number] - Anna Hinds Notice Issued Date-Time: 10/23/2018 9:20 Notice Type: Patient Choice Letter Notice Delivered To: Family Member Relationship to Patient: Daughter Glaucoma Specialist Name: CASS KNIGHT Delivery Method: - Kaya Days: Prior Verbal Notification: Recipient Understood Notice: Recipient Signature: Med Rec Note Co-signed by Attending: Coverage Notice Comment: Last DP export: 10/23/18 9:23 a Patient Name: LEXIE MCCLAIN Page [phone] at 1030 All edits/amendments must be made on the electronic document DICTATION DATE: 10/23/18 1029 COMPUTER NUMERICAL CONTROL PROGRAMMER: ANA LUISA 10/23/18 1029 RPT#: [id number] DC DATE: STATUS: ADM IN [facility] [address] [place] [address] END OF REPORT
--- NOTE | 2018-10-23 10:30 | NUR ---
2 MG PROFESSOR OF RELIGION BOLUS GIVEN TO PT FOR BREAK THROUGH PAIN. PT UNCOMFORTABLE. FAMILY AT BEDSIDE. RESPIRATIONS SHALLOW. 79 NORMAL SINUS ON TELE. LUNGS CLEAR. SAFETY PRECAUTIONS IN PLACE, SR UP X 2, NON SKID SOCKS ON. YELLOW GOWN ON. CL IN REACH. BED LOWERED AND LOCKED. WILL CTM.
[2018-10-23 12:08] VITALS: BP 161/75
--- NOTE | 2018-10-23 13:46 | NUR ---
I have reviewed this patient and I concur with the Shift Assessment completed by the Licensed Practical Nurse today this shift.
--- NOTE | 2018-10-23 14:32 | NUR ---
PT GIVEN 2 MG BOLUS OF DILAUDID FOR BREAK THROUGH PAIN TO IV IN L FA.
[2018-10-23 15:49] VITALS: BP 142/89
--- NOTE | 2018-10-23 17:13 | NUR ---
PT ASSISTED TO CHAIR AT BEDSIDE TO SIT UP FOR DINNER. C/O PAIN IN L HIP/FLANK. ENCOURAGED PT TO PUSH GREEEN ADAPTIVE PHYSICAL EDUCATION SPECIALIST BUTTON WHEN IN PAIN. NO FURTHER CONCERNS AT THIS TIME.
--- NOTE | 2018-10-23 17:13 | NUR ---
PT AMBULATED TO BATHROOM WITH WALKER WITH ASSISTANCE OF FAMILY.
--- NOTE | 2018-10-23 17:13 | NUR ---
VALIUM GIVEN PO 4MG FOR AGGITATION.
--- NOTE | 2018-10-23 18:33 | NUR ---
PT GIVEN A 2 MG BOLUS FOR BREAK THROUGH PAIN.
--- NOTE | 2018-10-23 20:07 | NUR ---
RECIEVED UP IN BED WITH EYES CLOSED AND O2 AT 2 LITERS PER N/C IN PLACE. EASILY AROUSES WITH VERBAL STIMULI. TELEMETRY IN PLACE. FENTENYL PATCH TO BACK OF LEFT SHOULDER. NEW ORDERS IN PLACE. DTRS AT BEDSIDE AND VERY TALKATIVE CONCERNING NEW MEDICATIONS. STATES VERY PLEASED THAT SHE IS NOT IN PAIN AND RESTING WELL. NO NEEDS VOICED AT THIS TIME.
[2018-10-23 20:33] VITALS: BP 144/82
--- NOTE | 2018-10-24 00:05 | NUR ---
FAMILY CALLED THIS NURSE IN TO GIVE BOLUS OF DILAUDID. PT DENIES ANY PAIN AND CLOSED HER EYES. NO S/S OF DISTRESS OBSERVED. FAMILY THAN STATED NOT TO GIVE THE BOLUS AT THIS TIME SINCE SHE WAS'NT IN ANY PAIN. STATED WHEN SHE GETS UP TO GO TO THE BATHROOM SHE C/O HIP PAIN AND SHE HAD JUST LAID BACK DOWN. O2 SAT 96% WITH CPAP ON AT THIS TIME. SATS DO FLUCTUATE FROM HIGH 80'S TO MID NINTYS.
[2018-10-24 00:33] VITALS: BP 134/73
[2018-10-24 05:08] VITALS: BP 138/67
[2018-10-24 06:48] LABS: CALC OSMOLALITY 283 mosm/kg (275-300); CALCIUM 9.1 mg/dL (8.5-10.1); CARBON DIOXIDE 36.2 mmol/L (21.0-32.0); CHLORIDE - SERUM 107 mmol/L (98-107); CREATININE - SERUM 0.5 mg/dL (0.6-1.3); GLUCOSE 103 mg/dL (74-106); POTASSIUM - SERUM 4.6 mmol/L (3.5-5.1); SODIUM 143 mmol/L (136-145); UREA NITROGEN 10 mg/dL (7-18); eGFR NON AFRICAN AMERICAN > 90 mL/min (90-120)
[2018-10-24 07:05] LABS: BASOPHILS 0.7 % (0-2); EOSINOPHILS 4.5 % (0-7); HEMATOCRIT 36.1 % (36.0-48.0); HEMOGLOBIN 11.4 g/dL (12-16); IMMATURE GRANULOCYTES 0.2 % (0-5); LYMPHOCYTES 27.6 % (15-50); MCH 29.1 pg (26.0-34.0); MCHC 31.6 g/dL (31.0-37.0); MCV 92.1 fL (80.0-100.0); MEAN PLATELET VOLUME 10.3 fL (7.4-10.4); MONOCYTES 9.8 % (2-11); NEUTROPHILS 57.2 % (40-80); PLATELET COUNT 259 10x3/uL (130-400); RBC 3.92 10x6/uL (4.00-5.40); RDW 13.7 % (11.5-14.5); WBC 5.8 10x3/uL (4.8-10.8)
--- NOTE | 2018-10-24 07:56 | NUR ---
PT IN BED AND TEARFUL. FAMILY AT BEDSIDE. REQUESTING VALIUM. VALIUM 4MG GIVEN. BED LOW. CL IN REACH. WILL CONTINUE TO MONITOR.
[2018-10-24 08:00] VITALS: BP 171/83
--- NOTE | 2018-10-24 09:31 | NUR ---
PT LAYING ON RIGHT SIDE IN BED. EYES CLOSED. CHEST RISING AND FALLING. ROOM AIR. BED LOW. CL IN REACH. WILL COTNINUE TO MONITOR.
--- NOTE | 2018-10-24 09:47 | NUR ---
I have reviewed this patient and I concur with the Shift Assessment completed by the Licensed Practical Nurse today this shift.
--- NOTE | 2018-10-24 10:50 | NUR ---
PT'S FAMILY STATES DR. MULTANI WAS WANTING PT'S MEDICAL RECORDS FROM [facility] BUT THEY NEED A FAX NUMBER. GAVE FAMILY DR. MULTANI'S OFFICE FAX NUMBER.
[2018-10-24 12:00] VITALS: BP 120/67
--- NOTE | 2018-10-24 16:23 | NUR ---
PT TAKEN VIA WC FOR MRI AND CT SCAN.
[2018-10-24 20:00] VITALS: BP 153/78
[2018-10-25] VITALS: BP 199/107
--- NOTE | 2018-10-25 00:34 | NUR ---
PT'S BP 199/107, P-123 TEMP-100.3 CLONIDINE 0.1MG AND TYLENOL 650MG GIVEN ORDERED.
--- NOTE | 2018-10-25 01:34 | NUR ---
RECHECKED PT'S BP-159/111 P-117 TEMP-100 AND PUT ON COOL CLOTH FOR FOREHEAD, WILL MONITOR CLOSELY.
--- NOTE | 2018-10-25 03:50 | NUR ---
I have reviewed this patient and I concur with the Shift Assessment completed by the Licensed Practical Nurse today this shift.
[2018-10-25 04:00] VITALS: BP 142/78
--- NOTE | 2018-10-25 04:37 | NUR ---
CHECKED PT BP-142/78,P-81 TEMP-98.1, WILL CONTINUE PLAN OF CARE.
--- NOTE | 2018-10-25 08:00 | NUR ---
PT RESTING IN BED, FAMILY AT BEDSIDE. SHIFT ASSESSMENT PERFORMED. DENIES ANY NEEDS AT THIS TIME, WILL CONT TO FOLLOW POC
[2018-10-25 08:57] VITALS: BP 137/63
[2018-10-25 12:07] LABS: COLOR YELLOW (YELLOW)
[2018-10-25 12:08] LABS: APPEARANCE CLEAR (CLEAR); BILIRUBIN NEGATIVE (NEGATIVE); GLUCOSE NEGATIVE (NEGATIVE); KETONE NEGATIVE (NEGATIVE); NITRITE NEGATIVE (NEGATIVE); PROTEIN NEGATIVE (NEGATIVE); SPECIFIC GRAVITY 1.005 (1.005-1.020); UROBILINOGEN NORMAL (NORMAL)
--- NOTE | 2018-10-25 14:50 | NUR ---
Nutrition Follow Up Regular diet and pt reports appetite is good Pt reports she is drinking a protein shake from home Pt does not eat much meat Pt has done some research and is trying to follow a healthy diet Weight 184.7lb Pt has no nutrition related questions at this time RD following
--- NOTE | 2018-10-25 15:09 | MORECARE ---
CASE MANAGEMENT DISCHARGE SUMMARY PATIENT: LEXIE MCCLAIN UNIT: [id number] ADM DATE: 10/17/18 AGE: 73 : 43 SEX: F ROOM/BED: D.1618 AUTHOR: ROXANA SHEPHERD PHYSICIAN: REFERRING PHYSICIAN: ZHOU MÁRQUEZ MD DATE OF SERVICE: 10/25/18 Discharge Plan Patient Name: LEXIE MCCLAIN Facility: [facility]:[place] : 1945 Planned Disposition: Home with Home Health Anticipated Discharge Date: 11/01/18 Discharge Date: Expected LOS: 15 Initial Reviewer: [id number] Initial Review Date: 10/23/2018 Generated: 10/25/18 4:08 pm Comments DCP- Discharge Planning Updated by [id number]: Alexey Sanchez on 10/25/18 1:[address] Patient Name: LEXIE MCCLAIN Encounter No: [id number] : 1945 Primary Insurance: MEDICARE A & B Anticipated DC Date: 11-01-2018 Planned Disposition: Home with Home Health External Planned Provider: [facility] DCP follow-up note: CM SPOKE TO RESOURCE SPECIALIST TEACHER NURSE WHO HAS TALKED TO PT AND FAMILY, THEY HAVE REQUESTED PRIVATE DUTY CAREGIVER INFORMATION; CM PROVIDED RESOURCE SPECIALIST TEACHER WITH PRIVATE DUTY CAREGIVER LISTING WE[facility] BR[facility]URE FOR A PLACE FOR MOM. RESOURCE SPECIALIST TEACHER WILL PROVIDE TO PT AND FAMILY IN ROOM. CM RECEIVED ORDER FOR [facility]AL[facility]ATION. CM MET WITH PT AND CAREGIVER IN ROOM. PT INFORMED CM THAT HER CAREGIVER CAN REMAIN IN ROOM FOR ALL DISCUSSIONS OF HER CARE AND DISCHARGE PLANNING. CM DISCUSSED [facility], SERVICES AND LOCATIONS. PT WOULD LIKE TO BE CONSIDERED FOR [facility] IN [place] ONLY. CAREGIVER AWARE THAT [facility] IS LOCATED IN THE [facility]. CM PROVIDED [facility] BROCHURE TO PT IN ROOM. PT REPORTS HER FIRST PREFERENCE IS HOME TREATMENT AND SECOND WOULD BE THE HOSPITAL. PT REPORTS HAVING A AT HOME AND DOES NOT WANT TO LEAVE [place]. PT'S CAREGIVER HAS THE PRIVATE DUTY CAREGIVER AND A PLACE FOR MOM INFORMATION AND WILL PROVIDE TO PT'S DAUGHTER. YULIYA CALLED AND SPOKE TO LEXIE OF [facility] ([facility]), . LEXIE ADVISED THEY CAN SCREEN FOR ADMISSION FOR PAIN CONTROL BUT CANNOT DO CHEMO OR RADIATION THERAPY. CM SPOKE TO [facility] ([facility]) WHO ADVISED THAT THEY DO NOT DO CHEMO OR RADIATION THERAPY. CM INFORMED PT WHO WOULD LIKE CM TO CHECK WITH OTHER [facility]'S. CM CALLED [facility], SPOKE TO AZRA WHO ADVISED THAT THEY CANNOT DO CHEMO OR RADIATION THERAPY. CM CALLED [facility] TO ANUJ WHO INFORMED CM THAT THEY CANNOT DO CHEMO OR RADIATION BUT COULD CONSIDER FOR IV PAIN CONTROL. CM CALLED [facility] ADVISED THAT [facility] WILL NOT DO CANCER TREATMENT BUT MAY CONSIDER FOR PAIN CONTROL. CM NOTIFIED PT. [facility] WILL NOT DO CHEMO OR RADIATION CANCER TREATMENTS. THEY MAY CONSIDER FOR IV PAIN CONTROL, PHYSICAL THERAPY, WOUND CARE (SKILLED NEEDS). CM TO CONTINUE TO FOLLOW AND ASSIST NEEDED. Alexey Sanchez, CASE MANAGEMENT DCP- Discharge Planning Updated by [id number]: Anna Hinds on 10/23/18 9:[address] Patient Name: LEXIE MCCLAIN Admission Status: ER Accout number: [id number] Admission Date: 10-17-2018 : 1945 Admission Diagnosis:LOW BACK PAIN Attending: ZHOU MÁRQUEZ Current LOS: 6 Anticipated DC Date: 11-01-2018 Planned Disposition: Home with Home Health Primary Insurance: MEDICARE A & B Discharge Planning Comments: CM MET WITH PATIENT AND FAMILY (DAUGHTER-CASS) REGARDING D/C NEEDS AND PLANS. PATIENT HAS 2 STEPS TO ENTER HOME AND HER FAMILY WILL DRIVE HER IF PATIENT GOES HOME PER DAUGHTER. PATIENT IS INDEPENDENT WITH HER CARE AND HAS A WALKER, WHEELCHAIR, GLUCOMETER, SHOWER CHAIR, AND C-PAP AT HOME. PATIENTS PCP IS DR. MÁRQUEZ AND USES [facility] [address] FOR HER PHARMACY. PATIENTS DAUGHTER SIGNED THE MADHAV FORM FOR [facility] IF NEEDED. CM WILL CONTINUE TO FOLLOW PATIENT WITH D/C NEEDS AND PLANS. PCP DR. WILLI T[facility] [address] Customer Service Agent: Anna Hinds DCP- Discharge Planning Updated by [id number]: Zoe Ugarte on 10/17/18 1:[address] THIRD VISIT TODAY TO MEET FOR INITIAL ASSESSMENT. THE DAUGHTER CAME TO DOOR CRYING AND STATED PLEASE NOT TO DISTURB THE PATIENT. PLAN FOR IR CONSULT FOR BIOPSY OF SACRUM. DR MÁRQUEZ VISITED TWICE TODAY. DR TURCIOS VISITED THIS PM REGARDING MRI FINDINGS. DCP- Discharge Planning Updated by [id number]: Zoe Ugarte on 10/17/18 10:[address] CM TO BEDSIDE FOR INITIAL ASSESSMENT. THE PATIENT IS UNCOMFORTABLE. RECENTLY RETURNED TO HER ROOM FROM MRI. SHE HAS NOT EATEN. SHE REQUEST CM TO RETURN LATER TODAY IF POSSIBLE. HONORING PATIENT'S REQUEST. DCP- Discharge Planning Updated by [id number]: Zoe Ugarte on 10/17/18 9:[address] PATIENT ARRIVED ON UNIT FROM ER AT 0205 THIS AM. CM TO VISIT WITH PATIENT FOR ASSESSMENT AND DISCHARGE PLANNING. SHE IS BEING TRANSPORTED TO MRI FOR STUDY WITH AND WITHOUT CONTRAST OF PELVIS. DCPIA - Discharge Planning Initial Assessment Updated by [id number]: Anna Hinds on 10/23/18 10:25 am * Is the patient Alert and Oriented? Yes * How many steps to enter\exit or inside your home? * PCP DR. MÁRQUEZ * Pharmacy [facility] [address] * Preadmission Environment Home with Family * ADLs Independent * Equipment CPAP Glucometer Shower Chair Walker Wheelchair * List name and contact numbers for known caregivers / representatives who currently or will assist patient after discharge: COLTEN [phone] MARY (SPOUSE) [phone] * Verbal permission to speak to the caregivers and representatives has been obtained from the patient. Yes * Community resources currently utilized None * Additional services required to return to the preadmission environment? Yes * Can the patient safely return to the preadmission environment? Yes * Has this patient been hospitalized within the prior 30 days at any hospital? No Coverage Notice Reviewer: [id number] Berhane Hinds Notice Issued Date-Time: 10/23/2018 9:20 Notice Type: Patient Choice Letter Notice Delivered To: Family Member Relationship to Patient: Daughter Agricultural Engineer Name: CASS KNIGHT Delivery Method: HAND - Hand Delivered Kaya Days: Prior Verbal Notification: Recipient Understood Notice: Yes Recipient Signature: Yes Med Rec Note Co-signed by Attending: Coverage Notice Comment: [facility] MADHAV FORM SIGNED Last DP export: 10/23/18 9:29 a Patient Name: LEXIE MCCLAIN Page [id number] at 1509 All edits/amendments must be made on the electronic document DICTATION DATE: 10/25/181507 STRATEGIC SOLUTIONS CONSULTANT: ANA LUISA 10/25/181507 RPT#: [id number] DC DATE: STATUS: ADM IN [facility] [address] [place] [address] END OF REPORT
--- NOTE | 2018-10-25 15:15 | NUR ---
PRN VALIUM GIVEN PER PT REQUEST R/T AGGITATION.
--- NOTE | 2018-10-25 15:26 | MORECARE ---
CASE MANAGEMENT DISCHARGE SUMMARY PATIENT: LEXIE MCCLAIN UNIT: [id number] ADM DATE: 10/17/18 AGE: 73 : 43 SEX: F ROOM/BED: D.0595 AUTHOR: ROXANA SHEPHERD PHYSICIAN: REFERRING PHYSICIAN: ZHOU MÁRQUEZ MD DATE OF SERVICE: 10/25/18 Discharge Plan Patient Name: LXEIE MCCLAIN Facility: [facility]:[place] : 1945 Planned Disposition: Home with Home Health Anticipated Discharge Date: 11/01/18 Discharge Date: Expected LOS: 15 Initial Reviewer: [id number] Initial Review Date: 10/23/2018 Generated: 10/25/18 4:26 pm Comments DCP- Discharge Planning Updated by [id number]: Alexey Sanchez on 10/25/18 2:[address] Patient Name: LEXIE MCCLAIN Encounter No: [id number] : 1945 Primary Insurance: MEDICARE A & B Anticipated DC Date: 11-01-2018 Planned Disposition: Home with Home Health External Planned Provider: [facility] DCP follow-up note: CM SPOKE TO AIRLINE LOUNGE RECEPTIONIST NURSE WHO HAS TALKED TO PT AND FAMILY, THEY HAVE REQUESTED PRIVATE DUTY CAREGIVER INFORMATION; CM PROVIDED AIRLINE LOUNGE RECEPTIONIST WITH PRIVATE DUTY CAREGIVER LISTING [place] BR[place]URE FOR A PLACE FOR MOM. AIRLINE LOUNGE RECEPTIONIST WILL PROVIDE TO PT AND FAMILY IN ROOM. CM RECEIVED ORDER FOR [facility]. CM MET WITH PT AND CAREGIVER IN ROOM. PT INFORMED CM THAT HER CAREGIVER CAN REMAIN IN ROOM FOR ALL DISCUSSIONS OF HER CARE AND DISCHARGE PLANNING. CM DISCUSSED [facility], SERVICES AND LOCATIONS. PT WOULD LIKE TO BE CONSIDERED FOR [facility] IN [place] ONLY. CAREGIVER AWARE THAT [facility] IS LOCATED IN THE [facility] [address]. CM PROVIDED [facility] BROCHURE TO PT IN ROOM. PT REPORTS HER FIRST PREFERENCE IS HOME TREATMENT AND SECOND WOULD BE THE HOSPITAL. PT REPORTS HAVING A AT HOME AND DOES NOT WANT TO LEAVE [place]. PT'S CAREGIVER HAS THE PRIVATE DUTY CAREGIVER AND A PLACE FOR MOM INFORMATION AND WILL PROVIDE TO PT'S DAUGHTER. YULIYA CALLED AND SPOKE TO LEXIE OF [facility] ([facility]), . LEXIE ADVISED THEY CAN SCREEN FOR ADMISSION FOR PAIN CONTROL BUT CANNOT DO CHEMO OR RADIATION THERAPY. [facility] WHO ADVISED THAT THEY DO NOT DO CHEMO OR RADIATION THERAPY. CM INFORMED PT WHO WOULD LIKE CM TO CHECK WITH OTHER [facility]S. CM CALLED [facility], SPOKE TO AZRA WHO ADVISED THAT THEY CANNOT DO CHEMO OR RADIATION THERAPY. CM CALLED [facility] TO ANUJ WHO INFORMED CM THAT THEY CANNOT DO CHEMO OR RADIATION BUT COULD CONSIDER FOR IV PAIN CONTROL. CM CALLED [facility] IN [place] [facility] ADVISED THAT [facility] WILL NOT DO CANCER TREATMENT BUT MAY CONSIDER FOR PAIN CONTROL. CM NOTIFIED PT. [facility] NOR [facility] WILL NOT DO CHEMO OR RADIATION CANCER TREATMENTS. THEY MAY CONSIDER FOR IV PAIN CONTROL, PHYSICAL THERAPY, WOUND CARE (SKILLED NEEDS). CM TO CONTINUE TO FOLLOW AND ASSIST NEEDED. Alexey Sanchez, CASE MANAGEMENT Appended by Alexey Sanchez on 10/25/2018 15:17 CDT: CM SPOKE TO PT IN ROOM, DISCUSSED WITH HER THAT [facility] WILL NOT TAKE FOR INITIATION OF CANCER TREATMENT. PT ASKED IF CM WILL CALL THE DOCTOR TO FIND OUT WHEN THE RESULTS OF HER TESTING MAY BE BACK; PT DOES ANTICIPATE TREATMENT FOR HER CANCER WHEN THE TREATMENT IS KNOWN. CM CALLED FOR DR. MÁRQUEZ WHO IS OUT OF THE OFFICE UNTIL IN THE MORNING. CM SPOKE TO DR. IBARRA'S NURSE AND DISCUSSED PT'S CONCERNS OF THE DOCTOR COMING TO SEE HER AND WHEN THE TEST RESULTS WOULD BE KNOWN. YULIYA MET AGAIN WITH PT AND INFORMED HER THAT DR. IBARRA IS SEEING PT'S FOR DR. MÁRQUEZ TODAY AND THAT SHE MAY SEE DR IBARRA THIS EVENING AND DR. MÁRQUEZ WOULD BE BACK IN THE MORNING TO SEE HER. YULIYA EXPLAINED THAT THE HOSPITAL HAS NO CONTROL OVER THE LAB AND THAT THE RESULTS SHOULD BE RETURN SOON. PT STATES PLAN FOR HOME CARE AND TREATMENT IF SHE CAN GET PAIN CONTROL STATING SHE CANNOT GET MORPHINE SEALING AND CANCELING MACHINE OPERATOR AT HOME. YULIYA EXPLAINED THAT CM WILL WORK WITH PATIENT, FAMILY AND DOCTOR REGARDING DISCHARGE PLANNING AND ASKED PT TO BE PATIENT. [facility] WILL NOT DO CHEMO OR RADIATION CANCER TREATMENTS. THEY MAY CONSIDER FOR IV PAIN CONTROL, PHYSICAL THERAPY, WOUND CARE (SKILLED NEEDS). CM TO CONTINUE TO FOLLOW AND ASSIST NEEDED. Alexey Sanchez, CASE MANAGEMENT DCP- Discharge Planning Updated by [id number]: Anna Hinds on 10/23/18 9:[address] Patient Name: LEXIE MCCLAIN Admission Status: ER Accout number: [id number] Admission Date: 10-17-2018 : 1945 Admission Diagnosis:LOW BACK PAIN Attending: ZHOU MÁRQUEZ Current LOS: 6 Anticipated DC Date: 11-01-2018 Planned Disposition: Home with Home Health Primary Insurance: MEDICARE A & B Discharge Planning Comments: CM MET WITH PATIENT AND FAMILY (DAUGHTER-CASS) REGARDING D/C NEEDS AND PLANS. PATIENT HAS 2 STEPS TO ENTER HOME AND HER FAMILY WILL DRIVE HER IF PATIENT GOES HOME PER DAUGHTER. PATIENT IS INDEPENDENT WITH HER CARE AND HAS A WALKER, WHEELCHAIR, GLUCOMETER, SHOWER CHAIR, AND C-PAP AT HOME. PATIENTS PCP IS DR. MÁRQUEZ AND USES [facility] [address] FOR HER PHARMACY. PATIENTS DAUGHTER SIGNED THE MADHAV FORM FOR [facility] IF NEEDED. CM WILL CONTINUE TO FOLLOW PATIENT WITH D/C NEEDS AND PLANS. PCP DR. WILLI TAY [facility] [address] Social Media Director: Anna Hinds DCP- Discharge Planning Updated by [id number]: Zoe Ugarte on 10/17/18 1:[address] THIRD VISIT TODAY TO MEET FOR INITIAL ASSESSMENT. THE DAUGHTER CAME TO DOOR CRYING AND STATED PLEASE NOT TO DISTURB THE PATIENT. PLAN FOR IR CONSULT FOR BIOPSY OF SACRUM. DR MÁRQUEZ VISITED TWICE TODAY. DR TURCIOS VISITED THIS PM REGARDING MRI FINDINGS. DCP- Discharge Planning Updated by [id number]: Zoe Ugarte on 10/17/18 10:[address] CM TO BEDSIDE FOR INITIAL ASSESSMENT. THE PATIENT IS UNCOMFORTABLE. RECENTLY RETURNED TO HER ROOM FROM MRI. SHE HAS NOT EATEN. SHE REQUEST CM TO RETURN LATER TODAY IF POSSIBLE. HONORING PATIENT'S REQUEST. DCP- Discharge Planning Updated by [id number]: Zoe Ugarte on 10/17/18 9:[address] PATIENT ARRIVED ON UNIT FROM ER AT 0205 THIS AM. CM TO VISIT WITH PATIENT FOR ASSESSMENT AND DISCHARGE PLANNING. SHE IS BEING TRANSPORTED TO MRI FOR STUDY WITH AND WITHOUT CONTRAST OF PELVIS. DCPIA - Discharge Planning Initial Assessment Updated by [id number]: Anna Hinds on 10/23/18 10:25 am * Is the patient Alert and Oriented? Yes * How many steps to enter\exit or inside your home? * PCP DR. MÁRQUEZ * Pharmacy [facility] [address] * Preadmission Environment Home with Family * ADLs Independent * Equipment CPAP Glucometer Shower Chair Walker Wheelchair * List name and contact numbers for known caregivers / representatives who currently or will assist patient after discharge: COLTEN [phone] MARY (SPOUSE) [phone] * Verbal permission to speak to the caregivers and representatives has been obtained from the patient. Yes * Community resources currently utilized None * Additional services required to return to the preadmission environment? Yes * Can the patient safely return to the preadmission environment? Yes * Has this patient been hospitalized within the prior 30 days at any hospital? No Coverage Notice Reviewer: [id number] Berhane Hinds Notice Issued Date-Time: 10/23/2018 9:20 Notice Type: Patient Choice Letter Notice Delivered To: Family Member Relationship to Patient: Daughter Tire Layer Name: CASS KNIGHT Delivery Method: HAND - Hand Delivered Kaya Days: Prior Verbal Notification: Recipient Understood Notice: Yes Recipient Signature: Yes Med Rec Note Co-signed by Attending: Coverage Notice Comment: [facility] MADHAV FORM SIGNED Last DP export: 10/25/18 2:09 p Patient Name: LEXIE MCCLAIN Page [phone] at 1526 All edits/amendments must be made on the electronic document DICTATION DATE: 10/25/18 1525 TALENT ACQUISITION ASSISTANT: ANA LUISA 10/25/18 1525 RPT#: [id number] DC DATE: STATUS: ADM IN [facility] [address] [place] [address] END OF REPORT
[2018-10-25 16:11] VITALS: BP 160/91
--- NOTE | 2018-10-25 16:24 | NUR ---
WHILE TALKING WITH PT NOTICED THAT A FAMILY MEMBER PRESSED THE PT LAY OUT MAKER BUTTON, EDUCATION PROVIDED TO FAMILY MEMBER THAT ONLY THE PT CAN PRESS THE LAY OUT MAKER BUTTON. FAMILY MEMEBER VERBALIZED UNDERSTANDING.
--- NOTE | 2018-10-25 16:33 | NUR ---
PT RESTING IN BED, NOTICED THAT PT BED AND BREAKFAST INNKEEPER BUTTON WAS HUNG OVER THE PUMP. UNTANGLED BUTTON AND PLACED IN PT REACH. EDUCATION PROVIDED.
--- NOTE | 2018-10-25 16:45 | NUR ---
FAMILY CAME TO NURSES STATION AND REPORTS THAT PT MAY NEED A BOLUS OF MEDICATION. ASKED PT FAMILY IF HER STAFF RESPIRATORY THERAPIST BUTTON WAS WITHIN REACH OF PT AND IF SHE HAS BEEN PRESSING IT, DUE TO IT BEING THROWN OVER HER IV PUMPS EARLIER AND NOT WITHIN REACH OF PT. FAMILY MEMBER STATED,"SHE HAS BEEN GETTING IT, I PUSHED IT A MINUTE AGO FOR HER." ONCE AGAIN PROVIDED EDUCATION THAT NO ONE OTHER THAN THE PT CAN PRESS THE BUTTON. FAMILY MEMBER STATED,"WELL ACTUALLY I DID NOT PRESS THE BUTTON, SHE DID WHEN SHE GOT UP TO GO TO THE BATHROOM." ADVISED FAMILY THAT RN WOULD COME ASSESS PT PAIN IN A MOMENT. FAMILY RETURNED TO ROOM
--- NOTE | 2018-10-25 17:25 | NUR ---
UPON ASSESSMENT, PT TEARFUL AND STATES MY HIP HURTS. PT RATES PAIN 8/10. BOLUS DOSE GIVEN WITH SECOND RN WITNESS. PLAIN [employer]OTHES POLICE OFFICER BUTTON WAS ONCE AGAIN WRAPPED ON PT IV PUMP. UNTAGLED PLA[employer]OTH[employer] POLICE OFFICER BUTTON AND PLACED IT IN PT HAND. ADVISED PT TO USE THE BUTTON WHEN SHE FEELS PAIN. PT VERBALIZES UNDERSTANDING
[2018-10-25 20:00] VITALS: BP 130/72
--- NOTE | 2018-10-25 20:25 | NUR ---
RECIEVED BEDSIDE REPORT. VSS, AAOX2, WITH SLURRED SPEECH. PT APPEARS DROWSY, BUT RESPOND SPONTANOUSLY TO VOICE. PT ON RECYCLING WORKER DILAUDID 0.4MG/ML Q10. PIV LFA NS @20. 2L NC. FAMILY AND NANNY AT BEDSIDE. PT DENIES ANY FURTHER NEEDS AT THIS TIME. WILL CTM. CL IN REACH, BED IN LOW, SR UP X2.
--- NOTE | 2018-10-25 23:01 | NUR ---
PT APPEARS RESTLESS AND AGITATED. PT REFUSED BELL HOLE DIGGER TO TAKE HER VS. STATES SHE DOES NOT WANT TO BE TOUCHED. SHE STATES SHE WANTED THE NURSE TO CHECK THE VS HIMSELF, SO I DID. PT BP 196/99. PRN CLONIDE 0.1MG CLONIDE AND 4MG PRN VALIUM GIVEN AT THIS TIME. PT CURRENTLY RESTING IN BED. COOL WASH CLOTH PLACED ON PT FORE HEAD PER PT REQUEST. PT CURRENLTY CALM AND RESTING IN BED. WILL CTM.
[2018-10-26 00:30] VITALS: BP 193/99
--- NOTE | 2018-10-26 03:10 | NUR ---
PT AGITATED, WITH ANXIETY. REFUSED TO TAKE HER ATIVAN AT THIS TIME. PT STATES "YOU PEOPLE ARE TRYING TO KILL ME". SHE HAS ALSO BEEN ON THE PHONE TRYING TO CALL HER AND OTHER FAMILY MEMBERS. PT APPEARS INCREASINGLY CONFUSED AND AGITATED. WILL CTM.
--- NOTE | 2018-10-26 03:37 | NUR ---
PT STAYED CONTINUOSLY ANXIOUS AND AGITATED. JESSI STEVE, STATES PT TOLD HER SHE IS IN A LOT OF PAIN. SHE GAVE PT BOLUS 2MG DILAUDID, PUT CPAP ON PT AND ALSO ADMINISTERED VALIUM AT THIS TIME. PT CURRENTLY RESTING IN BED WITH BOTH EYES OPEN. WILL CTM.
[2018-10-26 04:59] LABS: BASOPHILS 0.5 % (0-2); EOSINOPHILS 2.7 % (0-7); HEMOGLOBIN 10.7 g/dL (12-16); IMMATURE GRANULOCYTES 0.3 % (0-5); LYMPHOCYTES 12.9 % (15-50); MCH 29.1 pg (26.0-34.0); MCHC 32.4 g/dL (31.0-37.0); MEAN PLATELET VOLUME 10.6 fL (7.4-10.4); MONOCYTES 6.6 % (2-11); PLATELET COUNT 245 10x3/uL (130-400); RBC 3.68 10x6/uL (4.00-5.40); RDW 13.4 % (11.5-14.5); WBC 6.4 10x3/uL (4.8-10.8)
[2018-10-26 05:03] LABS: MCV 89.7 fL (80.0-100.0)
[2018-10-26 05:31] LABS: ALBUMIN 2.8 g/dL (3.4-5.0); ALKALINE PHOSPHATASE 79 U/L (46-116); ALT (SGPT) 40 U/L (10-68); BILIRUBIN - TOTAL 0.38 mg/dL (0.2-1.3); CALC OSMOLALITY 280 mosm/kg (275-300); CALCIUM 8.9 mg/dL (8.5-10.1); CARBON DIOXIDE 31.3 mmol/L (21.0-32.0); CHLORIDE - SERUM 104 mmol/L (98-107); CREATININE - SERUM 0.6 mg/dL (0.6-1.3); GLUCOSE 117 mg/dL (74-106); PROTEIN - SERUM 6.6 g/dL (6.4-8.2); SODIUM 141 mmol/L (136-145); UREA NITROGEN 11 mg/dL (7-18); eGFR NON AFRICAN AMERICAN > 90 mL/min (90-120)
[2018-10-26 08:39] VITALS: BP 118/70
--- NOTE | 2018-10-26 09:00 | NUR ---
PT RESTING IN BED, FENTANYL PATCH TO LEFT SHOULDER REMOVED AND NEW FENTANYL PATCH APPLIED TO LEFT CHEST. DENIES ANY OTHER NEEDS AT THIS TIME, WILL CONT TO FOLLOW PLAN OF CARE
[2018-10-26 11:51] VITALS: BP 126/84
[2018-10-26 15:50] VITALS: BP 131/68
--- NOTE | 2018-10-26 19:45 | NUR ---
RECIEVED BEDSIDE REPORT. ROUNDS COMPLETED. VSS, AAOX1, PT APPEARS CONFUSED. REFUSED TO SIT IN BED AND SHE KEEPS SENDING EVERYONE OUT OF HER ROOM. PT DAUGHTER IN ROOM HELPING TO CALM PT DOWN. RESTART NEW DOSE OF DILAUDID MASSEUR/MASSEUSE 0.2ML/1OMIN. PT WILL CTM. CL/ MASSEUR/MASSEUSE BUTTON IN REACH, BED IN LOW, SR UP X2.
[2018-10-26 20:00] VITALS: BP 155/83
--- NOTE | 2018-10-26 21:00 | NUR ---
PT APPEARS INCREASINGLY CONFUSED AND AGITATED. PRN VALIUM ADMINISTRED ALONGSIDE 2100 MEDS. PT CURRENTLY RESTING IN BED. FAMILY AT BEDSIDE. WILL CTM.
[2018-10-27 00:30] VITALS: BP 142/67
[2018-10-27 04:30] VITALS: BP 151/89
--- NOTE | 2018-10-27 07:34 | NUR ---
PT LAYING IN BED RESTING. STATES DISCOMFORT. DAUGHTERS AT BEDSIDE. IV TO L FA WITH NS @ 20, AND DILAUDID ENVIRONMENTAL COMPLIANCE OFFICER. SCDS ON. ALERT AND CONFUSED TO PLACE, TIME AND SITUATION. REORIENTED PT. NORMAL SINUS ON TELE. FENTYL PATCH TO L SHOULDER. PT 02 91% MOVED O2 UP TO 2.5L VIA NC, O2 UP TO 93%. SAFTEY PRECUATIONS IN PLACE. NO FURTHER CONCERNS AT THIS TIME. PT PADDED WITH PILLOWS IN BED. WILL CTM.
[2018-10-27 08:33] VITALS: BP 174/85
--- NOTE | 2018-10-27 08:39 | NUR ---
PT GIVEN 2MG BOLUS OF DILAUDID FOR BREAKTHROUGH PAIN.
--- NOTE | 2018-10-27 09:01 | NUR ---
IV TO PT L FA TANGLED UP. UNTANGLED IV. FAMILY STATED THAT THEY WOULD LIKE PT TO HAVE IV IN R FA. 20 G IV SITED TO R FA, ON STICK. IV SL. WILL CTM.
--- NOTE | 2018-10-27 09:02 | NUR ---
NOTIFIED TO PREOP PT. NO PREOP ORDERS FOR PT. CALLED [facility] FOR ORDERS, NO ANSWER.
--- NOTE | 2018-10-27 09:55 | NUR ---
PT TO SX FOR PORT PLACEMENT VIA BED.
--- NOTE | 2018-10-27 11:53 | NUR ---
1025: FENTANYL PATCH MOVED FROM LEFT CHEST TO RIGHT UPPER ARM WITNESSED BY MILITARY EXCHANGE WIRELESS MANAGER STUDENT: RAYMON RODRIGUEZ SCRUB TECHS: SUE WONG & ART PARKER. 1138: FENTANYL PATCH REPORTED TO AND VISUALIZED BY FILTER CLEANER: ARELY WYNN.
--- NOTE | 2018-10-27 11:55 | NUR ---
1150 - CARE ASSUMED FROM GEOVANNY HESTER RN
--- NOTE | 2018-10-27 12:37 | NUR ---
REPORT TAKEN FROM ARELY FROM [facility]. PT ON HER WAY BACK TO FLOOR VIA BED.
--- NOTE | 2018-10-27 12:44 | NUR ---
I CONCUR WITH THE ASSESSMENT PERFORMED BY ARNULFO MENESES
--- NOTE | 2018-10-27 13:00 | NUR ---
PT TO ROOM VIA BED. VITALS STABLE. PT DROWSY AND CONFUSED. FAMILY AT BEDSIDE. CONNECTED NS AND DILAUDID TO IV IN R FA, PATENT, NO REDNESS OR EDEMA. 02 3L NC. NO FURTHER CONCERNS AT THIS TIME. BED LOWERED AND LOCKED CL IN REACH. WILL CTM.
--- NOTE | 2018-10-27 13:24 | NUR ---
PT STATED SHE NEEDED TO PEE. DUE TO [facility], PUT PT ON A BEDPAN. SHOWED FAMILY HOW TO PUT PT ON BEDPAN SO THEY COULD HELP OUT. DAUGHTER STATED SHE WANTED TO LEARN.
[2018-10-27 15:52] VITALS: BP 182/81
--- NOTE | 2018-10-27 15:52 | NUR ---
2 MG BOLUS GIVEN FOR BREAKTHROUGH PAIN
--- NOTE | 2018-10-27 15:53 | NUR ---
PT AMBULATED TO BATHROOM X1 ASSIST WITH WALKER. PT GRIMACING IN PAIN. PT HAVING URINARY FREQUENCY. AFTER ASSISTING BACK TO BED RECONNECTED PT IV AND MADE PT COMFORTABLE WITH PILLOWS. NEW LINENS APPLIED TO BED, NEW YELLOW GOWN, NON SKID SOCKS. SR UP X 3. NO FURTHER CONCERNS AT THIS TIME. FAMILY AT BEDSIDE. WILL CTM.
--- NOTE | 2018-10-27 20:00 | NUR ---
RECIEVED BEDSIDE REPORT. PT CONFUSED WITH OCCASIONAL AGITATION. VSS. NO S/S OF RR DISTRESS. PT CURRENTLY RESTING IN BED. DENIES ANY FURTHER NEED FOR COMFORT CARE. WILL CTM.
--- NOTE | 2018-10-27 21:00 | NUR ---
PT GOT OUT OF BED, WALKED OUT OF HER ROOM. PT STAFFING ASSISTANT TRIED TO CALM AND RESTRAN HER BUT SHE REFUSED. PT TOOK OFF HER OXYGEN AND WAS YELLING DOWN THE HERNANDEZ. NOTIFIED BUSINESS DEVELOPMENT ASSISTANT AND CHARGE NURSE ABOUT PT BEHAVIOR. PT REFUSED TO TAKE ANY OF HER MEDS. STATES "YOU ALL WANT TO KILL ME". PT DIALLED 911 ON HER PHONE AND PULLED THE HOSPITAL FIRE ALARM. HOSPITAL SECURITY AND ENGINEERING NOTIFIED. PT DAUGHTER MIC IS NOW WITH PT. PT ONLY AGREED TO TAKE HER MEDS FROM HER DAUGHTER. ALL MEDS GIVEN AT THIS TIME ALONGSIDE VALIUM. PT CURRENLTY IN BED. AWAITING TRANSFER TO MED-SURG FLOOR. WILL CTM.
--- NOTE | 2018-10-27 23:06 | NUR ---
PT TRANSFERED TO MED-SURG. ALL PT BELONGINGS SENT WITH. FAMILY AT BEDSIDE AT THIS TIME. VSS. PT TRANSFERED WITH MATERIAL RECLAIMER PUMP INFUSING.
[2018-10-28] VITALS: BP 203/85
[2018-10-28 04:00] VITALS: BP 132/70
[2018-10-28 11:01] VITALS: BP 118/56
--- NOTE | 2018-10-28 13:04 | NUR ---
Nutrition Follow Up: Chart reviewed. Noted pt with more confusion today. Interview deferred at this time. Diet: Regular; Ensure/Boost TID PO Intake: 61% meal avg BM: 10/28/18 Wt loss 5# noted Meds and labs reviewed Rec continue current diet, supplement regimen. Rec consider an appetite stimulant. RD following.
--- NOTE | 2018-10-28 13:46 | NUR ---
PT RESTING IN BED. NO SIGNS OF DISTRESS. IV TO RIGHT FORARM PATENT NO RENDESS OR TENDERNESS. ON 2L NC. ON TELEMETRY 102 SINUS. COMPLAINS OF PAIN MEDICATION GIVEN. IS CONFUSED. FALL PRECAUTIONS IN PLACE. DENIES ANY NEED AT THIS TIME. CALL LIGHT IN REACH. BED LOW POSITION. FAMILY AT BEDSIDE.
[2018-10-28 14:08] VITALS: BP 189/87
--- NOTE | 2018-10-28 14:14 | NUR ---
I have reviewed this patient and I concur with the Shift Assessment completed by the Licensed Practical Nurse today this shift.
[2018-10-28 17:26] VITALS: BP 167/76
[2018-10-28 20:00] VITALS: BP 185/89
[2018-10-29] VITALS: BP 178/87
[2018-10-29 04:00] VITALS: BP 163/82
[2018-10-29 05:45] LABS: BASOPHILS 0.4 % (0-2); EOSINOPHILS 2.2 % (0-7); HEMATOCRIT 32.7 % (36.0-48.0); HEMOGLOBIN 10.7 g/dL (12-16); IMMATURE GRANULOCYTES 0.4 % (0-5); MCH 29.3 pg (26.0-34.0); MCHC 32.7 g/dL (31.0-37.0); MCV 89.6 fL (80.0-100.0); MEAN PLATELET VOLUME 10.4 fL (7.4-10.4); MONOCYTES 11.2 % (2-11); NEUTROPHILS 66.8 % (40-80); RBC 3.65 10x6/uL (4.00-5.40); RDW 13.9 % (11.5-14.5); WBC 7.8 10x3/uL (4.8-10.8)
[2018-10-29 05:55] LABS: PLATELET COUNT 306 10x3/uL (130-400)
[2018-10-29 06:17] LABS: CALC OSMOLALITY 288 mosm/kg (275-300); CALCIUM 8.6 mg/dL (8.5-10.1); CARBON DIOXIDE 28.6 mmol/L (21.0-32.0); CHLORIDE - SERUM 106 mmol/L (98-107); CREATININE - SERUM 0.7 mg/dL (0.6-1.3); GLUCOSE 102 mg/dL (74-106); POTASSIUM - SERUM 3.9 mmol/L (3.5-5.1); SODIUM 144 mmol/L (136-145); UREA NITROGEN 17 mg/dL (7-18); eGFR NON AFRICAN AMERICAN 86 mL/min (90-120)
[2018-10-29 08:45] VITALS: BP 141/60; BP 197/96
[2018-10-29 14:08] LABS: AEROBE ID Final report (())
--- NOTE | 2018-10-29 15:40 | NUR ---
PT RESTING IN BED.NO SIGNS OF DISTRESS. IV TO RIGHT FORARM PATENT NO REDNESS OR TENDERNESS. ON 2LNC. ON TELEMETYR 94 NORMAL SINUS. HAS SPOUTS OF CRYING EPISODES. COMPLAINS OF PAIN. MEDICATIONS GIVEN. DENIES ANY NEED AT THIS TIME. CALL LIGHT IN RECH. BED LOW POSITION. CAREGIVER AT BEDSIDE.
--- NOTE | 2018-10-29 15:58 | NUR ---
I have reviewed this patient and I concur with the Shift Assessment completed by the Licensed Practical Nurse today this shift.
[2018-10-29 17:42] VITALS: BP 141/58
--- NOTE | 2018-10-29 18:48 | NUR ---
I have reviewed this patient and I concur with the Shift Assessment completed by the Licensed Practical Nurse today this shift.
[2018-10-29 19:53] VITALS: BP 164/84
[2018-10-30 04:00] VITALS: BP 122/57
[2018-10-30 08:13] VITALS: BP 145/67
[2018-10-30 13:44] VITALS: BP 155/65
[2018-10-30 17:47] VITALS: BP 150/53
--- NOTE | 2018-10-30 19:00 | NUR ---
REPORT RECEIVED AND CARE OF PT ASSUMED. PT LYING IN LOW JOSEPH'S POSITION WITH EYES CLOSED. FAMILY MEMBERS ARE AT BEDSIDE. IV IN RIGHT FA PATENT WITH NS INFUSING AT 20 ML / HR. TELEMETRY IN PLACE AND READING SR AT THIS ASSESSMENT. WILL MONITOR FOR NEEDS.
--- NOTE | 2018-10-30 19:51 | NUR ---
I have reviewed this patient and I concur with the Shift Assessment completed by the Licensed Practical Nurse today this shift.
--- NOTE | 2018-10-30 20:29 | NUR ---
HS MEDICATIONS GIVEN. WILL CONTINUE TO MONITOR FOR NEEDS. CAREGIVER AT BEDSIDE.
--- NOTE | 2018-10-30 23:27 | NUR ---
GAVE DILAUDID 2 MG IVP PER REQUEST FOR SEVERE PAIN. WILL MONITOR FOR EFFECTIVENESS. CAREGIVER AT BEDSIDE.
[2018-10-31 03:00] VITALS: BP 132/60
--- NOTE | 2018-10-31 07:44 | NUR ---
SLEEPING. LUNGS CLEAR BILATERALLY IN ALL LOPEZ. HEART SOUNDS S1 AND S2 HEARD IN ALL LOPEZ. BOWEL SOUNDS ACTIVE X 4. AND CAREGIVER AT BEDSIDE. NO NEEDS VOICED AT THIS TIME. BED LOW. CALL DIGGS AND PERSONAL ITEMS IN REACH. WILL CONTINUE TO MONITOR.
[2018-10-31 08:15] VITALS: BP 141/57
--- NOTE | 2018-10-31 11:51 | NUR ---
RESTING IN BED. CAREGIVER AND DAUGHTER AT BEDSIDE.
[2018-10-31 13:55] VITALS: BP 153/67
--- NOTE | 2018-10-31 14:30 | NUR ---
C/O PAIN 8/10 AFTER PO DILAUDED. CALLED N/O FOR DILAUDID IV Q2HR FOR BREAKTHROUGH PAIN. PRN VALIUM GIVEN. WILL GIVE IV DIALAUDID 2 HOURS FROM PO DILAUDED IF PATIENT STILL C/O PAIN. EDUCATION PROVIDED. WILL CONTINUE TO MONITOR.
--- NOTE | 2018-10-31 16:42 | NUR ---
SLEEPING. FAMILY AT BEDSIDE. WILL CONTINUE TO MONITOR.
[2018-10-31 17:27] VITALS: BP 130/71
--- NOTE | 2018-10-31 17:49 | NUR ---
LYING IN BED. FAMILY AT BEDSIDE. DENIES NEEDS. WILL CONTINUE TO MONITOR.
[2018-10-31 20:00] VITALS: BP 161/66
[2018-11-01] VITALS: BP 167/71
--- NOTE | 2018-11-01 01:20 | NUR ---
(1900) REC'D REQUESTING IV PAIN MED.INSTRUCTED SITTERS TO ENCOURAGE ORAL PAIN MED WHEN POSSIBLE CAN'T GO HOME ON IV PAIN MEDS ATTEMPTING TO GET CHEMO STARTED. WHICH WILL HELP ASSIST WITH PAIN CONTROL.VOICES UNDERSTANDING
[2018-11-01 05:30] VITALS: BP 157/63
--- NOTE | 2018-11-01 07:11 | NUR ---
I have reviewed this patient and I concur with the Shift Assessment completed by the Licensed Practical Nurse today this shift.
[2018-11-01 09:58] VITALS: BP 134/68
--- NOTE | 2018-11-01 10:15 | NUR ---
PT SEEN AND ASSESSED THIS NICA GOFF. COMPLAINTS OF PAIN AND DISCOMFORT TO BACK AND PELVIC REGION-RECENTLY RECIEVED PAIN MEDICATION. RE-EDUCATED PT AND FAMILY THAT PT WAS ON SCHEDULED MEDICATION WITH A NEW FENTANYL PATCH TO BE APPLIED TODAY. ENCOURAGED TO ONLY USE PO PAIN MEDICATIONS SO WE COULD REGULATE HER PAIN AND SEE WHAT WE CAN SEND HER HOME ON IN NEXT DAY OR TWO. BOTH VOICED UNDERSTANDING OF THIS. CALL LIGHT IN REACH. HOT PACK NOTED TO LOW BACK REGION. FAMILY AT BEDSIDE. FALL PRECAUTIONS IN PLACE AND ON.
--- NOTE | 2018-11-01 10:59 | NUR ---
CAREGIVER AT BEDSIDE. PT FINALLY RESTING WITH EYES CLOSED AND RESP EVEN AND UNLABORED. RESTING ON RIGHT SIDE.
[2018-11-01 11:53] VITALS: BP 170/84
--- NOTE | 2018-11-01 14:12 | NUR ---
Nutrition Follow up Regular diet with 25-50% intake of meals Pt continues to drink protein shake from home Spoke with pt about food preferences Admit weight 175lb Current weight 180lb Encouraged good po intake to help pt maintain strength and muscle mass RD following
--- NOTE | 2018-11-01 14:24 | NUR ---
PT RESTING WITH EYES CLOSED WITH RESP EVEN AND UNLABORED. SITTER AT BEDSIDE. CALL LIGHT IN REACH
[2018-11-01 16:57] VITALS: BP 158/86
--- NOTE | 2018-11-01 17:58 | NUR ---
FAmily to nurses station saying pt is having extreme headache. informed family that pt had pain medication along with nausea medication at 1700. vs taken and bp 186/74. upon entering room pt throwing up approx. 200cc bile. states nausea and headache are now better. instructed not to eat at this moment. call light in reach. pt states she hit her head on the wall in the bathroom eariler when escorted by caregiver x 2. had caregive in room currently call other caregiver to checfk this out-caregiver states pt did NOT hit head, back or neck on the wall. she did not fall. family in room for this discussion.
--- NOTE | 2018-11-01 19:30 | NUR ---
PT REPORTS SEVERE PAIN IN BACK AND LEGS, UNRELIEVED BY ICE/HEAT/REPOSITIONING. FAMILY/CAREGIVERS REQUEST PRN IV PAIN MED INSTEAD OF SCHEDULED PO PAIN MED WHEN IT IS ALLOWED.
[2018-11-01 21:22] VITALS: BP 148/70
[2018-11-02 00:19] VITALS: BP 155/74
[2018-11-02 05:05] VITALS: BP 124/64
--- NOTE | 2018-11-02 07:30 | NUR ---
I have reviewed this patient and I concur with the Shift Assessment completed by the Licensed Practical Nurse today this shift.
--- NOTE | 2018-11-02 10:12 | NUR ---
PT LYING IN BED IN AND OUT OF SLEEP READING, BRANDING MACHINE OPERATOR AT BEDSIDE, NO NEEDS VOICED CONTINUE WITH PLAN OF CARE
[2018-11-02 10:16] VITALS: BP 133/49
--- NOTE | 2018-11-02 10:39 | EC ---
PATIENT:LEXIE MCCLAIN DATE OF SERVICE: 10/17/18 SEX: F MEDICAL RECORD: [id number] DATE OF : [birth year] LOCATION:[facility] AGE OF PATIENT: 73 ADMISSION DATE: 10/17/18 REFERRING PHYSICIAN: INTERPRETING PHYSICIAN: RAVI GOMEZ MD ECHOCARDIOGRAM REPORT ECHO CHARGES 4 ECHO COMPLETE Date: 10/26/18 CLINICAL DIAGNOSIS: PRE-CHEMOTHERAPY ECHOCARDIOGRAPHIC MEASUREMENTS (adult normal given) AC root (d.<3.7cm) 2.9 cm LV Septum d (<1.2 cm> 1.4 cm Valve Excursion 2.2 cm LV Septum (systole) 1.9 cm Left Atria (s.<4.0cm> 3.3 cm LVPW d(<1.2cm) 1.6 cm RV (d.<2.3cm) 2.6 cm LVPW (sytole) 2.1 cm LV diastole(<5.6CM) 5.0 cm MV E-F(>70mm/sec) cm LV systole 3.0 cm LVOT Diameter 1.9 cm MV exc.(>10mm) cm Est.ejection fraction (50-75%) % DOPPLER: LVIT cm/sec A 71.0 cm/sec E 56.0 cm/sec LA cm/sec RVSP 28.0 mmHg LVOT 104 cm/sec AOP1/2T m/s Asc. Ao 161 cm/sec RVOT 73.0 cm/sec RA cm/sec PA 107 cm/sec AV Gradient Peak 10.4 mmHg AV Mean 5.1 mmHg AV Area 2.3 cm MV Gradient Peak 3.5 mmHg MV Mean 1.4 mmHg MV Area cm COMMENTS: Elementary Spanish Teacher: Linh DANIELS Assignment Manager: 1 Dr. Gomez TAPE# PACS Pericardial Effusion N DATE OF SERVICE: 10/26/2018 PROCEDURE: Echocardiogram FINDINGS: 1. Left ventricular chamber size is within normal limits. Left ventricular systolic function is normal. Overall ejection fraction estimated at 55%. 2. Left atrium, right atrium, and right ventricle chamber sizes are within normal limits. 3. Valvular structures have normal structure and motion. ECHOCARDIOGRAM REPORT [id number] LEXIE MCCLAIN 4. Doppler interrogation reveals mild mitral regurgitation, mild tricuspid regurgitation, no other valvular insufficiency or stenosis. Pulmonary systolic pressure is normal estimated 28 mmHg. 5. No evidence of pericardial effusion or left ventricular thrombus. TRANSINT:[id number] Voice Confirmation ID: [id number] DOCUMENT ID: [id number] RAVI GOMEZ MD at 1039 CC: [id number] DICTATION DATE: 10/27/1843 WAREHOUSE ORDER SELECTOR: 10/27/18 0859 ADM IN [place] [id number] [place] [id number]
--- NOTE | 2018-11-02 11:38 | MORECARE ---
CASE MANAGEMENT DISCHARGE SUMMARY PATIENT: LEXIE MCCLAIN UNIT: [id number] ADM DATE: 10/17/18 AGE: 73 : 43 SEX: F ROOM/BED: D.2240 AUTHOR: ROXANA SHEPHERD PHYSICIAN: REFERRING PHYSICIAN: ZHOU MÁRQUEZ MD DATE OF SERVICE: 11/02/18 Discharge Plan Patient Name: LEXIE MCCLAIN Facility: [facility]:[place] : 1945 Planned Disposition: Home with Home Health Anticipated Discharge Date: 11/01/18 Discharge Date: Expected LOS: 15 Initial Reviewer: [email or web address] Initial Review Date: 10/23/2018 Generated: 11/02/18 12:38 pm Comments DCP- Discharge Planning Updated by [email or web address]: Gretchen Rand on 11/02/18 10:[address] Spoke with Nichelle at [facility] and informed she should discharge home today. Nichelle states they will see her tomorrow. Clinical faxed. CM will continue to follow and assist with discharge planning/needs. DCP- Discharge Planning Updated by [email or web address]: Alexey Sanchez on 10/25/18 2:[address] Patient Name: LEXIE MCCLAIN Encounter No: [id number] : 1945 Primary Insurance: MEDICARE A & B Anticipated DC Date: 11-01-2018 Planned Disposition: Home with Home Health External Planned Provider: [facility] DCP follow-up note: CM SPOKE TO CONSUMER MARKETING ANALYST NURSE WHO HAS TALKED TO PT AND FAMILY, THEY HAVE REQUESTED PRIVATE DUTY CAREGIVER INFORMATION; CM PROVIDED CONSUMER MARKETING ANALYST WITH PRIVATE DUTY CAREGIVER LISTING WELL BROCURE FOR A PLACE FOR MOM. CONSUMER MARKETING ANALYST WILL PROVIDE TO PT AND FAMILY IN ROOM. CM RECEIVED ORDER FOR CORPORATE GENERAL MANAGER ACUTE CARE EVALUATION. CM MET WITH PT AND CAREGIVER IN ROOM. PT INFORMED CM THAT HER CAREGIVER CAN REMAIN IN ROOM FOR ALL DISCUSSIONS OF HER CARE AND DISCHARGE PLANNING. CM DISCUSSED [facility] HOSPITALS, SERVICES AND LOCATIONS. PT WOULD LIKE TO BE CONSIDERED FOR [place]ACH IN [place] ONLY. CAREGIVER AWARE THAT [facility] IS LOCATED IN THE [facility] ON [address]. CM PROVIDED [facility] TO PT IN ROOM. PT REPORTS HER FIRST PREFERENCE IS HOME TREATMENT AND SECOND WOULD BE THE HOSPITAL. PT REPORTS HAVING A AT HOME AND DOES NOT WANT TO LEAVE [place]. PT'S CAREGIVER HAS THE PRIVATE DUTY CAREGIVER AND A PLACE FOR MOM INFORMATION AND WILL PROVIDE TO PT'S DAUGHTER. CM CALLED AND S[facility]), . LEXIE ADVISED THEY CAN SCREEN FOR ADMISSION FOR PAIN CONTROL BUT CANNOT DO CHEMO OR RADIATION THERAPY. CM SPOKE TO [facility] ([facility]) WHO ADVISED THAT THEY DO NOT DO CHEMO OR RADIATION THERAPY. CM INFORMED PT WHO WOULD LIKE CM TO CHECK WITH OTHER ACH'S. CM CALLED [facility], SPOKE TO AZRA WHO ADVISED THAT THEY CANNOT DO CHEMO OR RADIATION THERAPY. CM CALLED [facility] TO ANUJ WHO INFORMED CM THAT THEY CANNOT DO CHEMO OR RADIATION BUT COULD CONSIDER FOR IV PAIN CONTROL. CM CALLED [facility] ADVISED THAT [facility] BUT MAY CONSIDER FOR PAIN CONTROL. CM NOTIFIED PT. CORPORATE GENERAL MANAGER ACUTE CARE [facility] WILL NOT DO CHEMO OR RADIATION CANCER TREATMENTS. THEY MAY CONSIDER FOR IV PAIN CONTROL, PHYSICAL THERAPY, WOUND CARE (SKILLED NEEDS). CM TO CONTINUE TO FOLLOW AND ASSIST NEEDED. Alexey Sanchez, CASE MANAGEMENT Appended by Alexey Sanchez on 10/25/2018 15:17 CDT: YULIYA SPOKE TO PT IN ROOM, DISCUSSED WITH HER THAT [facility] WILL NOT TAKE FOR INITIATION OF CANCER TREATMENT. PT ASKED IF CM WILL CALL THE DOCTOR TO FIND OUT WHEN THE RESULTS OF HER TESTING MAY BE BACK; PT DOES ANTICIPATE TREATMENT FOR HER CANCER WHEN THE TREATMENT IS KNOWN. CM CALLED FOR DR. MÁRQUEZ WHO IS OUT OF THE OFFICE UNTIL IN THE MORNING. CM SPOKE TO DR. IBARRA'S NURSE AND DISCUSSED PT'S CONCERNS OF THE DOCTOR COMING TO SEE HER AND WHEN THE TEST RESULTS WOULD BE KNOWN. YULIYA MET AGAIN WITH PT AND INFORMED HER THAT DR. IBARRA IS SEEING PT'S FOR DR. MÁRQUEZ TODAY AND THAT SHE MAY SEE DR IBARRA THIS EVENING AND DR. MÁRQUEZ WOULD BE BACK IN THE MORNING TO SEE HER. YULIYA EXPLAINED THAT THE HOSPITAL HAS NO CONTROL OVER THE LAB AND THAT THE RESULTS SHOULD BE RETURN SOON. PT STATES PLAN FOR HOME CARE AND TREATMENT IF SHE CAN GET PAIN CONTROL STATING SHE CANNOT GET MORPHINE EMPLOYMENT INSTRUCTIONAL ASSOCIATE AT HOME. CM EXPLAINED THAT CM WILL WORK WITH PATIENT, FAMILY AND DOCTOR REGARDING DISCHARGE PLANNING AND ASKED PT TO BE PATIENT. LONG-TERM ACUTE CARE [facility] WILL NOT DO CHEMO OR RADIATION CANCER TREATMENTS. THEY MAY CONSIDER FOR IV PAIN CONTROL, PHYSICAL THERAPY, WOUND CARE (SKILLED NEEDS). CM TO CONTINUE TO FOLLOW AND ASSIST NEEDED. Alexey Sanchez, CASE MANAGEMENT DCP- Discharge Planning Updated by [email or web address]: Anna Hinds on 10/23/18 9:[address] Patient Name: LEXIE MCCLAIN Admission Status: ER Accout number: [id number] Admission Date: 10-17-2018 : 1945 Admission Diagnosis:LOW BACK PAIN Attending: ZHOU MÁRQUEZ Current LOS: 6 Anticipated DC Date: 11-01-2018 Planned Disposition: Home with Home Health Primary Insurance: MEDICARE A & B Discharge Planning Comments: CM MET WITH PATIENT AND FAMILY (DAUGHTER-CASS) REGARDING D/C NEEDS AND PLANS. PATIENT HAS 2 STEPS TO ENTER HOME AND HER FAMILY WILL DRIVE HER IF PATIENT GOES HOME PER DAUGHTER. PATIENT IS INDEPENDENT WITH HER CARE AND HAS A WALKER, WHEELCHAIR, GLUCOMETER, SHOWER CHAIR, AND C-PAP AT HOME. PATIENTS PCP IS DR. MÁRQUEZ AND USES [facility] [address] FOR HER PHARMACY. PATIENTS DAUGHTER SIGNED THE MADHAV FORM FOR [facility] IF NEEDED. CM WILL CONTINUE TO FOLLOW PATIENT WITH D/C NEEDS AND PLANS. PCP DR. [facility] [address] Photographic Aide: Anna Hinds DCP- Discharge Planning Updated by [id number]: Zoe Ugarte on 10/17/18 1:[address] THIRD VISIT TODAY TO MEET FOR INITIAL ASSESSMENT. THE DAUGHTER CAME TO DOOR CRYING AND STATED PLEASE NOT TO DISTURB THE PATIENT. PLAN FOR IR CONSULT FOR BIOPSY OF SACRUM. DR MÁRQUEZ VISITED TWICE TODAY. DR TURCIOS VISITED THIS PM REGARDING MRI FINDINGS. DCP- Discharge Planning Updated by [id number]: Zoe Ugarte on 10/17/18 10:[address] CM TO BEDSIDE FOR INITIAL ASSESSMENT. THE PATIENT IS UNCOMFORTABLE. RECENTLY RETURNED TO HER ROOM FROM MRI. SHE HAS NOT EATEN. SHE REQUEST CM TO RETURN LATER TODAY IF POSSIBLE. HONORING PATIENT'S REQUEST. DCP- Discharge Planning Updated by [email or web address]: Zoe Ugarte on 10/17/18 9:[address] PATIENT ARRIVED ON UNIT FROM ER AT 0205 THIS AM. CM TO VISIT WITH PATIENT FOR ASSESSMENT AND DISCHARGE PLANNING. SHE IS BEING TRANSPORTED TO MRI FOR STUDY WITH AND WITHOUT CONTRAST OF PELVIS. DCPIA - Discharge Planning Initial Assessment Updated by [id number]: Anna Hinds on 10/23/18 10:25 am * Is the patient Alert and Oriented? Yes * How many steps to enter\exit or inside your home? * PCP DR. MÁRQUEZ * Pharmacy [facility] [address] * Preadmission Environment Home with Family * ADLs Independent * Equipment CPAP Glucometer Shower Chair Walker Wheelchair * List name and contact numbers for known caregivers / representatives who currently or will assist patient after discharge: COLTEN [phone] MARY (SPOUSE) [phone] * Verbal permission to speak to the caregivers and representatives has been obtained from the patient. Yes * Community resources currently utilized None * Additional services required to return to the preadmission environment? Yes * Can the patient safely return to the preadmission environment? Yes * Has this patient been hospitalized within the prior 30 days at any hospital? No External [facility]iders [facility] [place] Next Contact Date: Service Request Date: Service Type: Resolution: Reviewer: Comments: Coverage Notice Reviewer: [email or web address] - Anna Hinds Notice Issued Date-Time: 10/23/2018 9:20 Notice Type: Patient Choice Letter Notice Delivered To: Family Member Relationship to Patient: Daughter Microphone Operator Name: CASS KNIGHT Delivery Method: HAND - Hand Delivered Kaya Days: Prior Verbal Notification: Recipient Understood Notice: Yes Recipient Signature: Yes Med Rec Note Co-signed by Attending: Coverage Notice Comment: [facility] FORM SIGNED Last DP export: 10/25/18 2:26 p Patient Name: LEXIE MCCLAIN Page [id number] at 1138 All edits/amendments must be made on the electronic document DICTATION DATE: 11/02/181136 DIRECTOR SANITATION BUREAU: ANA LUISA 11/02/181136 RPT#: [id number] DC DATE: STATUS: ADM IN [facility] [address] [place] [address] END OF REPORT
--- NOTE | 2018-11-02 11:54 | NUR ---
PT LYING IN BED WITH GRINDING SUPERVISOR AND DAUGHTER AT BEDSIDE, ADMINISTERED PRN PAIN MEDICATION WELL VALIUM, NO NEEDS VOICED, CONTINUE WITH PLAN OF CARE
[2018-11-02 12:48] VITALS: BP 152/68
--- NOTE | 2018-11-02 13:51 | NUR ---
I have reviewed this patient and I concur with the Shift Assessment completed by the Licensed Practical Nurse today this shift.
[2018-11-02 15:46] VITALS: BP 137/55
--- NOTE | 2018-11-02 17:47 | NUR ---
PT SITTING UP AT SIDE OF BED WITH DINNER TRAY IN FRONT OF HER. FREIGHT SEPARATOR AND DAUGHTER AT BEDSIDE, NO S/S OF DISTRESS, NO NEEDS VOICED. CONTINUE WITH PLAN OF CARE, ADMINISTER PRN PAIN MEDICATION
[2018-11-02 22:12] VITALS: BP 131/52
[2018-11-03 00:45] VITALS: BP 148/64
[2018-11-03 05:12] VITALS: BP 153/70
--- NOTE | 2018-11-03 06:25 | NUR ---
I have reviewed this patient and I concur with the Shift Assessment completed by the Licensed Practical Nurse today this shift.
[2018-11-03] MEDS ORDERED: DILAUDID2 MG PO (07:36)
[2018-11-03] MEDS ORDERED: ZOLOFT100 MG PO (07:36)
[2018-11-03] MEDS ORDERED: VALIUM 2 MG TAB2 MG PO (07:38)
[2018-11-03] MEDS ORDERED: DURAGESIC1 PATCH .1 TRANSDERM (07:39)
[2018-11-03] MEDS ORDERED: PHENERGAN25 M1 PO (07:40)
[2018-11-03] MEDS ORDERED: ZOFRAN4 MG PO (07:40)
--- NOTE | 2018-11-03 07:58 | NUR ---
PT IS RESTING IN BED WITH EYES OPEN. RESPIRATIONS ARE EVEN AND UNLABORED. FAMILY IS AT BEDSIDE. PT REPORTS PAIN 2/10 AT THIS TIME. PT WITH LEFT PORT INFUSING WITHOUT DIFFICULTY. PT DENIES PRESENCE OF N/V. PT AND PT FAMILY DENY FURTHER NEEDS AT THIS TIME. BED IS IN THE LOWEST POSITION. CALL LIGHT AND BEDSIDE TABLE ARE WITHIN REACH. PT HAS CAREGIVER AT BEDSIDE FOR ASSISTANCE. SIDE RAILS X 2. WILL CONT TO MONITOR.
[2018-11-03 08:35] VITALS: BP 139/72
--- NOTE | 2018-11-03 08:50 | MORECARE ---
CASE MANAGEMENT DISCHARGE SUMMARY PATIENT: LEXIE MCCLAIN UNIT: [id number] ADM DATE: 10/17/18 AGE: 73 : 43 SEX: F ROOM/BED: D.2240 AUTHOR: ROXANA SHEPHERD PHYSICIAN: REFERRING PHYSICIAN: ZHOU MÁRQUEZ MD DATE OF SERVICE: 11/03/18 Discharge Plan Patient Name: LEXIE MCCLAIN Facility: [facility]:[place] : 1945 Planned Disposition: Home with Home Health Anticipated Discharge Date: 11/01/18 Discharge Date: Expected LOS: 15 Initial Reviewer: [id number] Initial Review Date: 10/23/2018 Generated: 11/03/18 9:50 am Comments DCP- Discharge Planning Updated by [id number]: Gretchen Rand on 11/03/18 7:[address] Discharging home today. I met with family and informed that [facility] will see them tomorrow. I called Nichelle with [facility] and she confirms that first visit will be tomorrow. They deny other needs at this time. I gave daughter's name and number to [facility]: Roberta Pink - [phone]. Cm will continue to follow and assist with discharge planning/needs. DCP- Discharge Planning Updated by [id number]: Gretchen Rand on 11/02/18 10:[address] Spoke with Nichelle at [facility] and informed she should discharge home today. Nichelle states they will see her tomorrow. Clinical faxed. CM will continue to follow and assist with discharge planning/needs. DCP- Discharge Planning Updated by [id number]: Alexey Sanchez on 10/25/18 2:[address] Patient Name: LEXIE MCCLAIN Encounter No: [id number] : 1945 Primary Insurance: MEDICARE A & B Anticipated DC Date: 11-01-2018 Planned Disposition: Home with Home Health External Planned Provider: [facility] DCP follow-up note: CM SPOKE TO ORDER TO DELIVERY SUPERVISOR NURSE WHO HAS TALKED TO PT AND FAMILY, THEY HAVE REQUESTED PRIVATE DUTY CAREGIVER INFORMATION; CM PROVIDED ORDER TO DELIVERY SUPERVISOR WITH PRIVATE DUTY CAREGIVER LISTING [facility] [facility] FOR A PLACE FOR MOM. ORDER TO DELIVERY SUPERVISOR WILL PROVIDE TO PT AND FAMILY IN ROOM. CM RECEIVED ORDER FOR CUSTOMER RETENTION SPECIALIST ACUTE CARE EVALUATION. CM MET WITH PT AND CAREGIVER IN ROOM. PT INFORMED CM THAT HER CAREGIVER CAN REMAIN IN ROOM FOR ALL DISCUSSIONS OF HER CARE AND DISCHARGE PLANNING. CM DISCUSSED [facility] HOSPITALS, SERVICES AND LOCATIONS. PT WOULD LIKE TO BE CONSIDERED FOR LTACH IN [place] ONLY. CAREGIVER AWARE THAT [facility] IS LOCATED IN THE [facility] ON [address]. CM PROVIDED [facility] BROCHURE TO PT IN ROOM. PT REPORTS HER FIRST PREFERENCE IS HOME TREATMENT AND SECOND WOULD BE THE HOSPITAL. PT REPORTS HAVING A AT HOME AND DOES NOT WANT TO LEAVE [place]. PT'S CAREGIVER HAS THE PRIVATE DUTY CAREGIVER AND A PLACE FOR MOM INFORMATION AND WILL PROVIDE TO PT'S DAUGHTER. CM CALLED AND SPOKE TO LEXIE OF [facility] ([facility]), . LEXIE ADVISED THEY CAN SCREEN FOR ADMISSION FOR PAIN CONTROL BUT CANNOT DO CHEMO OR RADIATION THERAPY. CM SPOKE TO KURTIS MONTES DE OCA [facility] OUT [facility] ([facility]) WHO ADVISED THAT THEY DO NOT DO CHEMO OR RADIATION THERAPY. CM INFORMED PT WHO WOULD LIKE CM TO CHECK WITH OTHER LTACH'S. CM CALLED [facility], SPOKE TO AZRA WHO ADVISED THAT THEY CANNOT DO CHEMO OR RADIATION THERAPY. CM CALLED [facility] IN [facility] TO ANUJ WHO INFORMED CM THAT THEY CANNOT DO CHEMO OR RADIATION BUT COULD CONSIDER FOR IV PAIN CONTROL. CM CALLED [facility] IN [facility] ADVISED THAT LTACH WILL NOT DO CANCER TREATMENT BUT MAY CONSIDER FOR PAIN CONTROL. CM NOTIFIED PT. [facility]UST[facility] RETENTION SPECIALIST [facility]UTE [facility] NOR [facility] SWING [facility] WILL NOT DO CHEMO OR RADIATION CANCER TREATMENTS. THEY MAY CONSIDER FOR IV PAIN CONTROL, PHYSICAL THERAPY, WOUND CARE (SKILLED NEEDS). CM TO CONTINUE TO FOLLOW AND ASSIST NEEDED. Alexey Sanchez, CASE MANAGEMENT Appended by Alexey Sanchez on 10/25/2018 15:17 CDT: CM SPOKE TO PT IN ROOM, DISCUSSED WITH HER THAT [facility] WILL NOT TAKE FOR INITIATION OF CANCER TREATMENT. PT ASKED IF CM WILL CALL THE DOCTOR TO FIND OUT WHEN THE RESULTS OF HER TESTING MAY BE BACK; PT DOES ANTICIPATE TREATMENT FOR HER CANCER WHEN THE TREATMENT IS KNOWN. CM CALLED FOR DR. MÁRQUEZ WHO IS OUT OF THE OFFICE UNTIL IN THE MORNING. CM SPOKE TO DR. IBARRA'S NURSE AND DISCUSSED PT'S CONCERNS OF THE DOCTOR COMING TO SEE HER AND WHEN THE TEST RESULTS WOULD BE KNOWN. CM MET AGAIN WITH PT AND INFORMED HER THAT DR. IBARRA IS SEEING PT'S FOR DR. MÁRQUEZ TODAY AND THAT SHE MAY SEE DR IBARRA THIS EVENING AND DR. MÁRQUEZ WOULD BE BACK IN THE MORNING TO SEE HER. CM EXPLAINED THAT THE HOSPITAL HAS NO CONTROL OVER THE LAB AND THAT THE RESULTS SHOULD BE RETURN SOON. PT STATES PLAN FOR HOME CARE AND TREATMENT IF SHE CAN GET PAIN CONTROL STATING SHE CANNOT GET MORPHINE OPTICS ENGINEER AT HOME. CM EXPLAINED THAT CM WILL WORK WITH PATIENT, FAMILY AND DOCTOR REGARDING DISCHARGE PLANNING AND ASKED PT TO BE PATIENT. [facility] NOR [facility] WILL NOT DO CHEMO OR RADIATION CANCER TREATMENTS. THEY MAY CONSIDER FOR IV PAIN CONTROL, PHYSICAL THERAPY, WOUND CARE (SKILLED NEEDS). CM TO CONTINUE TO FOLLOW AND ASSIST NEEDED. Alexey Sanchez, CASE MANAGEMENT DCP- Discharge Planning Updated by [id number]: Anna Hinds on 10/23/18 9:[address] Patient Name: LEXIE MCCLAIN Admission Status: ER Accout number: [id number] Admission Date: 10-17-2018 : 1945 Admission Diagnosis:LOW BACK PAIN Attending: ZHOU MÁRQUEZ Current LOS: 6 Anticipated DC Date: 11-01-2018 Planned Disposition: Home with Home Health Primary Insurance: MEDICARE A & B Discharge Planning Comments: CM MET WITH PATIENT AND FAMILY (DAUGHTER-CASS) REGARDING D/C NEEDS AND PLANS. PATIENT HAS 2 STEPS TO ENTER HOME AND HER FAMILY WILL DRIVE HER IF PATIENT GOES HOME PER DAUGHTER. PATIENT IS INDEPENDENT WITH HER CARE AND HAS A WALKER, WHEELCHAIR, GLUCOMETER, SHOWER CHAIR, AND C-PAP AT HOME. PATIENTS PCP IS DR. MÁRQUEZ AND USES [facility] ON [address] FOR HER PHARMACY. PATIENTS DAUGHTER SIGNED THE MADHAV FORM FOR [facility] IF NEEDED. CM WILL CONTINUE TO FOLLOW PATIENT WITH D/C NEEDS AND PLANS. PCP DR. WILLI TAY [facility] [place] Rad Technologist: Anna Hinds DCP- Discharge Planning Updated by [id number]: Zoe Ugarte on 10/17/18 1:[address] THIRD VISIT TODAY TO MEET FOR INITIAL ASSESSMENT. THE DAUGHTER CAME TO DOOR CRYING AND STATED PLEASE NOT TO DISTURB THE PATIENT. PLAN FOR IR CONSULT FOR BIOPSY OF SACRUM. DR MÁRQUEZ VISITED TWICE TODAY. DR TURCIOS VISITED THIS PM REGARDING MRI FINDINGS. DCP- Discharge Planning Updated by [id number]: Zoe Ugarte on 10/17/18 10:[address] CM TO BEDSIDE FOR INITIAL ASSESSMENT. THE PATIENT IS UNCOMFORTABLE. RECENTLY RETURNED TO HER ROOM FROM MRI. SHE HAS NOT EATEN. SHE REQUEST CM TO RETURN LATER TODAY IF POSSIBLE. HONORING PATIENT'S REQUEST. DCP- Discharge Planning Updated by [id number]: Zoe Ugarte on 10/17/18 9:[address] PATIENT ARRIVED ON UNIT FROM ER AT 0205 THIS AM. CM TO VISIT WITH PATIENT FOR ASSESSMENT AND DISCHARGE PLANNING. SHE IS BEING TRANSPORTED TO MRI FOR STUDY WITH AND WITHOUT CONTRAST OF PELVIS. DCPIA - Discharge Planning Initial Assessment Updated by [id number]: Anna Hinds on 10/23/18 10:25 am * Is the patient Alert and Oriented? Yes * How many steps to enter\exit or inside your home? * PCP DR. MÁRQUEZ * Pharmacy [facility] [address] * Preadmission Environment Home with Family * ADLs Independent * Equipment CPAP Glucometer Shower Chair Walker Wheelchair * List name and contact numbers for known caregivers / representatives who currently or will assist patient after discharge: COLTEN [phone] MARY (SPOUSE) [phone] * Verbal permission to speak to the caregivers and representatives has been obtained from the patient. Yes * Community resources currently utilized None * Additional services required to return to the preadmission environment? Yes * Can the patient safely return to the preadmission environment? Yes * Has this patient been hospitalized within the prior 30 days at any hospital? No Coverage Notice Reviewer: [id number] Berhane Hinds Notice Issued Date-Time: 10/23/2018 9:20 Notice Type: Patient Choice Letter Notice Delivered To: Family Member Relationship to Patient: Daughter Spray Cementer Name: CASS KNIGTH Delivery Method: HAND - Hand Delivered Kaya Days: Prior Verbal Notification: Recipient Understood Notice: Yes Recipient Signature: Yes Med Rec Note Co-signed by Attending: Coverage Notice Comment: [facility] MADHAV FORM SIGNED Last DP export: 11/02/18 10:38 am Patient Name: LEXIE MCCLAIN Page 91160 at 0850 All edits/amendments must be made on the electronic document DICTATION DATE: 11/03/18848 TWISTER TENDER: ANA LUISA 11/03/18848 RPT#: [id number] DC DATE: STATUS: ADM IN [facility] [address] [place] [address] END OF REPORT
--- NOTE | 2018-11-03 10:41 | NUR ---
LEFT CHEST PORT DEACCESSED WITHOUT DIFFICULTY. SEE EMAR. ALL DISCHARGE INSTRUCTIONS COVERED WITH PT AND PT DAUGHTER. ALL PRINTED RX GIVEN TO PT DAUGHTER. PT AND PT DAUGHTER DENY ANY FURTHER QUESTIONS AND/OR CONCERNS AT THIS TIME. ALL DISCHARGE PAPERS SIGNED BY PT DAUGHTER AT PT REQUEST.
--- NOTE | 2018-11-03 10:45 | NUR ---
PT TRANSPORTED FROM ROOM VIA WHEELCHAIR. PT AND PT FAMILY DENY FURTHER QUESTIONS/CONCERNS AT THIS TIME.
--- NOTE | 2018-11-04 13:41 | MORECARE ---
CASE MANAGEMENT DISCHARGE SUMMARY PATIENT: LEXIE MCCLAIN UNIT: [id number] ADM DATE: 10/17/18 AGE: 73 : 43 SEX: F ROOM/BED: D.2240 AUTHOR: ROXANA SHEPHERD PHYSICIAN: REFERRING PHYSICIAN: ZHOU MÁRQUEZ MD DATE OF SERVICE: 11/04/18 Discharge Plan Patient Name: LEXIE MCCLAIN Facility: [facility]:[place] : 1945 Planned Disposition: Home with Home Health Anticipated Discharge Date: 11/01/18 Discharge Date: 11/03/2018 Expected LOS: 15 Initial Reviewer: [id number] Initial Review Date: 10/23/2018 Generated: 11/04/18 2:40 pm Comments DCP- Discharge Planning Updated by [id number]: Gretchen Rand on 11/03/18 7:[address] Discharging home today. I met with family and informed that [facility] will see them tomorrow. I called Nichelle with [facility] and she confirms that first visit will be tomorrow. They deny other needs at this time. I gave daughter's name and number to [facility]: Roberta Pink - [phone]. Cm will continue to follow and assist with discharge planning/needs. DCP- Discharge Planning Updated by [id number]: Gretchen Rand on 11/02/18 10:[address] Spoke with Nichelle at [facility] and informed she should discharge home today. Nichelle states they will see her tomorrow. Clinical faxed. CM will continue to follow and assist with discharge planning/needs. DCP- Discharge Planning Updated by [id number]: Alexey Sanchez on 10/25/18 2:[address] Patient Name: LEXIE MCCLAIN Encounter No: [id number] : 1945 Primary Insurance: MEDICARE A & B Anticipated DC Date: 11-01-2018 Planned Disposition: Home with Home Health External Planned Provider: [facility] DCP follow-up note: CM SPOKE TO PHARMACY INTAKE TECHNICIAN NURSE WHO HAS TALKED TO PT AND FAMILY, THEY HAVE REQUESTED PRIVATE DUTY CAREGIVER INFORMATION; CM PROVIDED PHARMACY INTAKE TECHNICIAN WITH PRIVATE DUTY CAREGIVER LISTING [place] FOR A PLACE FOR MOM. PHARMACY INTAKE TECHNICIAN WILL PROVIDE TO PT AND FAMILY IN ROOM. CM RECEIVED ORDER FOR PROSTHETIC TECHNICIAN ACUTE CARE EVALUATION. CM MET WITH PT AND CAREGIVER IN ROOM. PT INFORMED CM THAT HER CAREGIVER CAN REMAIN IN ROOM FOR ALL DISCUSSIONS OF HER CARE AND DISCHARGE PLANNING. CM DISCUSSED LTACH HOSPITALS, SERVICES AND LOCATIONS. PT WOULD LIKE TO BE CONSIDERED FOR LTACH IN [place] ONLY. CAREGIVER AWARE THAT [facility] IS LOCATED IN THE [facility] ON [address]. CM PROVIDED [facility] BROCHURE TO PT IN ROOM. PT REPORTS HER FIRST PREFERENCE IS HOME TREATMENT AND SECOND WOULD BE THE HOSPITAL. PT REPORTS HAVING A AT HOME AND DOES NOT WANT TO LEAVE [place]. PT'S CAREGIVER HAS THE PRIVATE DUTY CAREGIVER AND A PLACE FOR MOM INFORMATION AND WILL PROVIDE TO PT'S DAUGHTER. CM CALLED AND SPOKE TO LEXIE OF [facility] ([facility]), . LEXIE ADVISED THEY CAN SCREEN FOR ADMISSION FOR PAIN CONTROL BUT CANNOT DO CHEMO OR RADIATION THERAPY. YULIYA SPOKE TO KURTIS MONTES DE OCA [facility] OUT [facility] ([facility]) WHO ADVISED THAT THEY DO NOT DO CHEMO OR RADIATION THERAPY. CM INFORMED PT WHO WOULD LIKE CM TO CHECK WITH OTHER LTACH'S. CM CALLED [facility], SPOKE TO AZRA WHO ADVISED THAT THEY CANNOT DO CHEMO OR RADIATION THERAPY. CM CALLED [facility] IN [facility] TO ANUJ WHO INFORMED CM THAT THEY CANNOT DO CHEMO OR RADIATION BUT COULD CONSIDER FOR IV PAIN CONTROL. CM CALLED [facility] IN [facility] ADVISED THAT LTACH WILL NOT DO CANCER TREATMENT BUT MAY CONSIDER FOR PAIN CONTROL. CM NOTIFIED PT. [facility] NOR [facility] SWING [facility]ED WILL NOT DO CHEMO OR RADIATION CANCER TREATMENTS. THEY MAY CONSIDER FOR IV PAIN CONTROL, PHYSICAL THERAPY, WOUND CARE (SKILLED NEEDS). CM TO CONTINUE TO FOLLOW AND ASSIST NEEDED. Alexey Sanchez, CASE MANAGEMENT Appended by Alexey Sanchez on 10/25/2018 15:17 CDT: YULIYA SPOKE TO PT IN ROOM, DISCUSSED WITH HER THAT [facility] WILL NOT TAKE FOR INITIATION OF CANCER TREATMENT. PT ASKED IF CM WILL CALL THE DOCTOR TO FIND OUT WHEN THE RESULTS OF HER TESTING MAY BE BACK; PT DOES ANTICIPATE TREATMENT FOR HER CANCER WHEN THE TREATMENT IS KNOWN. CM CALLED FOR DR. MÁRQUEZ WHO IS OUT OF THE OFFICE UNTIL IN THE MORNING. CM SPOKE TO DR. IBARRA'S NURSE AND DISCUSSED PT'S CONCERNS OF THE DOCTOR COMING TO SEE HER AND WHEN THE TEST RESULTS WOULD BE KNOWN. CM MET AGAIN WITH PT AND INFORMED HER THAT DR. IBARRA IS SEEING PT'S FOR DR. MÁRQUEZ TODAY AND THAT SHE MAY SEE DR IBARRA THIS EVENING AND DR. MÁRQUEZ WOULD BE BACK IN THE MORNING TO SEE HER. CM EXPLAINED THAT THE HOSPITAL HAS NO CONTROL OVER THE LAB AND THAT THE RESULTS SHOULD BE RETURN SOON. PT STATES PLAN FOR HOME CARE AND TREATMENT IF SHE CAN GET PAIN CONTROL STATING SHE CANNOT GET MORPHINE KILN REPAIRER AT HOME. CM EXPLAINED THAT CM WILL WORK WITH PATIENT, FAMILY AND DOCTOR REGARDING DISCHARGE PLANNING AND ASKED PT TO BE PATIENT. [facility] NOR [facility] WILL NOT DO CHEMO OR RADIATION CANCER TREATMENTS. THEY MAY CONSIDER FOR IV PAIN CONTROL, PHYSICAL THERAPY, WOUND CARE (SKILLED NEEDS). CM TO CONTINUE TO FOLLOW AND ASSIST NEEDED. Alexey Sanchez, CASE MANAGEMENT DCP- Discharge Planning Updated by [id number]: Anna Hinds on 10/23/18 9:[address] Patient Name: LEXIE MCCLAIN Admission Status: ER Accout number: [id number] Admission Date: 10-17-2018 : 1945 Admission Diagnosis:LOW BACK PAIN Attending: ZHOU MÁRQUEZ Current LOS: 6 Anticipated DC Date: 11-01-2018 Planned Disposition: Home with Home Health Primary Insurance: MEDICARE A & B Discharge Planning Comments: CM MET WITH PATIENT AND FAMILY (DAUGHTER-CASS) REGARDING D/C NEEDS AND PLANS. PATIENT HAS 2 STEPS TO ENTER HOME AND HER FAMILY WILL DRIVE HER IF PATIENT GOES HOME PER DAUGHTER. PATIENT IS INDEPENDENT WITH HER CARE AND HAS A WALKER, WHEELCHAIR, GLUCOMETER, SHOWER CHAIR, AND C-PAP AT HOME. PATIENTS PCP IS DR. MÁRQUEZ AND USES [facility] ON [address] FOR HER PHARMACY. PATIENTS DAUGHTER SIGNED THE MADHAV FORM FOR [facility] IF NEEDED. CM WILL CONTINUE TO FOLLOW PATIENT WITH D/C NEEDS AND PLANS. PCP DR. WILLI TAY ON [address] Hardware Sales Assistant: Anna Hinds DCP- Discharge Planning Updated by [id number]: Zoe Ugarte on 10/17/18 1:[address] THIRD VISIT TODAY TO MEET FOR INITIAL ASSESSMENT. THE DAUGHTER CAME TO DOOR CRYING AND STATED PLEASE NOT TO DISTURB THE PATIENT. PLAN FOR IR CONSULT FOR BIOPSY OF SACRUM. DR MÁRQUEZ VISITED TWICE TODAY. DR TURCIOS VISITED THIS PM REGARDING MRI FINDINGS. DCP- Discharge Planning Updated by [id number]: Zoe Ugarte on 10/17/18 10:[address] CM TO BEDSIDE FOR INITIAL ASSESSMENT. THE PATIENT IS UNCOMFORTABLE. RECENTLY RETURNED TO HER ROOM FROM MRI. SHE HAS NOT EATEN. SHE REQUEST CM TO RETURN LATER TODAY IF POSSIBLE. HONORING PATIENT'S REQUEST. DCP- Discharge Planning Updated by [id number]: Zoe Ugarte on 10/17/18 9:[address] PATIENT ARRIVED ON UNIT FROM ER AT 0205 THIS AM. CM TO VISIT WITH PATIENT FOR ASSESSMENT AND DISCHARGE PLANNING. SHE IS BEING TRANSPORTED TO MRI FOR STUDY WITH AND WITHOUT CONTRAST OF PELVIS. DCPIA - Discharge Planning Initial Assessment Updated by [id number]: Anna Hinds on 10/23/18 10:25 am * Is the patient Alert and Oriented? Yes * How many steps to enter\exit or inside your home? * PCP DR. MÁRQUEZ * Pharmacy [facility] [address] * Preadmission Environment Home with Family * ADLs Independent * Equipment CPAP Glucometer Shower Chair Walker Wheelchair * List name and contact numbers for known caregivers / representatives who currently or will assist patient after discharge: COLTEN [phone] MARY (SPOUSE) [phone] * Verbal permission to speak to the caregivers and representatives has been obtained from the patient. Yes * Community resources currently utilized None * Additional services required to return to the preadmission environment? Yes * Can the patient safely return to the preadmission environment? Yes * Has this patient been hospitalized within the prior 30 days at any hospital? No Coverage Notice Reviewer: [id number] Berhane Hinds Notice Issued Date-Time: 10/23/2018 9:20 Notice Type: Patient Choice Letter Notice Delivered To: Family Member Relationship to Patient: Daughter Colored Leather Setter Name: CASS KNIGHT Delivery Method: HAND - Hand Delivered Kaya Days: Prior Verbal Notification: Recipient Understood Notice: Yes Recipient Signature: Yes Med Rec Note Co-signed by Attending: Coverage Notice Comment: [facility] MADHAV FORM SIGNED Reviewer: [id number] Berhane Rand Notice Issued Date-Time: 11/03/2018 8:49 Notice Type: IM Discharge Notice Notice Delivered To: Patient Relationship to Patient: Self Colored Leather Setter Name: Delivery Method: HAND - Hand Delivered Kaya Days: Prior Verbal Notification: Recipient Understood Notice: Yes Recipient Signature: Yes Med Rec Note Co-signed by Attending: Coverage Notice Comment: IMM explained, signed, given, copy placed in MR Last DP export: 11/03/18 7:50 am Patient Name: LEXIE MCCLAIN Page [id number] at 1341 All edits/amendments must be made on the electronic document DICTATION DATE: 11/04/18 1340 MECHANICAL UNIT REPAIRER: ANA LUISA 11/04/18 1340 RPT#: [id number] DC DATE:11/03/18 STATUS: DIS IN [facility] [address] [place] [address] END OF REPORT
== END 2018-11-03 10:48 | disposition home health service (06) | DRG 824 ==
LOC: D.ER 22:44 → D.M3 10-17 01:01 → D.EDHOLD 10-17 01:01 → D.M2 10-17 01:01 → D.MS 10-17 01:01 → D.M3 10-17 01:21 → D.M2 10-18 21:25 → D.MS 10-27 22:57
PROVIDERS: Family Medicine; Internal Medicine Hematology & Oncology; Legal Medicine; Specialist; ADMIT Family Medicine; ATTEND Family Medicine
PROC: 0QB13ZX Excision of Sacrum, Percutaneous Approach, Diagnostic (ICD-10-PCS; principal; 2018-10-18 08:30)
PROC: 0JBC3ZX Excision of Pelvic Region Subcutaneous Tissue and Fascia, Percutaneous Approach, Diagnostic (ICD-10-PCS; 2018-10-18 08:30)
PROC: 02HV33Z Insertion of Infusion Device into Superior Vena Cava, Percutaneous Approach (ICD-10-PCS; 2018-10-27)
PROC: B5181ZA Fluoroscopy of Superior Vena Cava using Low Osmolar Contrast, Guidance (ICD-10-PCS; 2018-10-27)
DX: C83.36 Diffuse large B-cell lymphoma, intrapelvic lymph nodes (principal); S32.9XXA Fracture of unspecified parts of lumbosacral spine and pelvis, initial encounter for closed fracture; S32.10XA Unspecified fracture of sacrum, initial encounter for closed fracture; N39.0 Urinary tract infection, site not specified; W19.XXXA Unspecified fall, initial encounter; M54.5 Low back pain; G89.29 Other chronic pain; I10 Essential (primary) hypertension; F41.9 Anxiety disorder, unspecified; M47.816 Spondylosis without myelopathy or radiculopathy, lumbar region; G47.33 Obstructive sleep apnea (adult) (pediatric); M53.3 Sacrococcygeal disorders, not elsewhere classified

== ENCOUNTER 2018-11-04 19:45 | Inpatient (IN) | payer MEDICARE, BC ==
[~2018-11-04] VITALS: Ht 165.1 cm; Wt 82.1 kg
[~2018-11-04 19:45] MED LIST changes: +DILAUDID2 MG PO; +DURAGESIC1 PATCH .1 TRANSDERM; +KRILL OIL 1,001 EAC1 PO; +OMEGA-3100 MG PO; +PHENERGAN25 M1 PO; +ZOFRAN4 MG PO; +ZOLOFT100 MG PO; +ZYRTEC10 MG PO
[2018-11-04 20:33] LABS: BASOPHILS 0.4 % (0-2); HEMATOCRIT 34.7 % (36.0-48.0); HEMOGLOBIN 11.4 g/dL (12-16); IMMATURE GRANULOCYTES 0.5 % (0-5); LYMPHOCYTES 19.1 % (15-50); MCHC 32.9 g/dL (31.0-37.0); MCV 88.3 fL (80.0-100.0); MEAN PLATELET VOLUME 10.2 fL (7.4-10.4); MONOCYTES 9.4 % (2-11); NEUTROPHILS 65.6 % (40-80); PLATELET COUNT 265 10x3/uL (130-400); RBC 3.93 10x6/uL (4.00-5.40); RDW 13.4 % (11.5-14.5); WBC 8.3 10x3/uL (4.8-10.8)
[2018-11-04 20:50] LABS: ANION GAP 12.9 mmol/L (8-16); BILIRUBIN - TOTAL 0.39 mg/dL (0.2-1.3); CALCIUM 9.3 mg/dL (8.5-10.1); CARBON DIOXIDE 29.2 mmol/L (21.0-32.0); CREATININE - SERUM 0.8 mg/dL (0.6-1.3); POTASSIUM - SERUM 4.1 mmol/L (3.5-5.1)
--- NOTE | 2018-11-04 21:00 | NUR ---
CALLED TO THE ROOM SEVERAL TIMES BY CAREGIVER TO DISCUSS PATIENT LEVEL OF PAIN, AT BEDSIDE, STATING SHE NEEDS TO BE ADMITTED THAT THEY CANNOT CONTROL HER PAIN AT HOME. PROVIDER NOTIFIED.
[2018-11-04 21:24] VITALS: BP 169/94
[2018-11-04 22:10] LABS: APPEARANCE CLEAR (CLEAR); BILIRUBIN NEGATIVE (NEGATIVE); COLOR YELLOW (YELLOW); GLUCOSE NEGATIVE (NEGATIVE); KETONE NEGATIVE (NEGATIVE); NITRITE NEGATIVE (NEGATIVE); PROTEIN NEGATIVE (NEGATIVE); UROBILINOGEN NORMAL (NORMAL)
[2018-11-04 22:30] VITALS: BP 172/91
--- NOTE | 2018-11-05 00:10 | NUR ---
RECEIVED TO FLOOR FROM ER, ORIENTED TO ROOM, DENIES NEEDS, TELEMETRY ON, CALL LIGHT IN REACH, BED LOWEST POSITION, CAREGIVER AT BEDSIDE, WILL CONTINUE POC
[2018-11-05 00:20] VITALS: BP 170/68; BMI 29.0
--- NOTE | 2018-11-05 01:01 | NUR ---
I have reviewed this patient and I concur with the Shift Assessment completed by the Licensed Practical Nurse today this shift.
[2018-11-05 05:39] VITALS: BP 153/80
--- NOTE | 2018-11-05 07:59 | NUR ---
SLIGHTLY DROWSY, ORIENTED X4, 02 PRESENT AT 2LPM VIA NC, CAREGIVER, JABARI, PRESENT IN ROOM, REPOSITIONED TO RIGHT SIDE, DURAGESIC PAIN PATCH PRESENT ON RIGHT POSTERIOR SHOULDER, IV TO LEFT FOREARM, PATENT, SALINE LOCKED, LEFT CHEST PORT, UNACCESSED, DRESSING C/D/I DENIES ANY CURRENT NEEDS OR DISCOMFORTS, BED LOWERED AND LOCKED, CALL LIGHT WITHIN REACH. CPOC
[2018-11-05 09:10] VITALS: BP 152/72
[2018-11-05 10:33] VITALS: BMI 28.9
[2018-11-05 13:35] VITALS: BP 117/71
--- NOTE | 2018-11-05 13:37 | NUR ---
I have reviewed this patient and I concur with the Shift Assessment completed by the Licensed Practical Nurse today this shift.
--- NOTE | 2018-11-05 16:02 | NUR ---
LETHARGIC, SLURRED SPEECH, SPOKE WTIH DR. IBARRA, NEW ORDER TO DECREASE DURAGESIC PATCH FROM 100MCG TO 75MCG. NEW PATCH PLACED ON UPPER LEFT POSTERIOR SHOULDER, OLD PATCH REMOVED, INITATED IV FLUIDS NS AT 60ML/HR. 02 PRESENT AT 2LPM, CONTINOUS 02 MONITORING. DENIES ANY OTHER NEEDS OR DISCOMFORTS, BED LOWERED AND LOCKED, CALL LIGHT WITHIN REACH. CAREGIVER PRESENT, CPOC
[2018-11-05 16:48] VITALS: BP 141/69
[2018-11-05 21:01] VITALS: BP 135/73
--- NOTE | 2018-11-05 21:07 | HP ---
PATIENT: LEXIE MCCLAIN MEDICAL RECORD: [id number] ACCOUNT: [id number] LOCATION:D.[id number] : 41 ADMISSION DATE: 11/04/18 PCP: ZHOU MÁRQUEZ MD HISTORY AND PHYSICAL EXAMINATION DATE OF ADMISSION: 11/04/2018 CHIEF COMPLAINT: Increased pain and low O2 sats. HISTORY: This is a 73-year-old white female, who was admitted to [place] from 10/17/2018 until 11/03/2018. She was initially admitted with intractable low back pain with discovery of a sacral mass. Biopsy revealed large B-cell lymphoma. She was also treated for UTI. Staging CT with chest, abdomen and pelvis as well as an MRI of the brain were all negative for metastatic lesions. It was very difficult to control her pain, and she was discharged home with anticipation of starting chemo as an outpatient in a couple of days. The patient got home. Her pain was under control. However, on November 04, her pain started getting worse throughout the day. She was already on a Duragesic 50 mcg patch and was also taking Dilaudid 2 mg p.r.n. Those doses were increased and her pain was never really under control. Also, her O2 sat as checked by the home health nurse last night was down to 88% when they increased her pain medications. Because her pain was not well controlled and because she had shallow breathing and hypoxia, she was brought to the ER where her lab is fairly normal, but with her intractable pain and requiring more pain medications, she is admitted into the hospital. PAST MEDICAL HISTORY: Obstructive sleep apnea, on CPAP. She has had cataracts. She has a history of osteoarthritis, reflux, anxiety, and now the large B-cell lymphoma. PAST SURGICAL HISTORY: Hysterectomy, cataracts. ALLERGIES: HYDROCODONE CAUSES ITCH. MUSCLE RELAXERS CAUSE TACHYCARDIA. HOME MEDICATIONS: Metoprolol XL 50 at bedtime, aspirin 81 mg once a day, Micardis 40 mg b.i.d., Vytorin 10-40 at bedtime, clonidine 0.1 mg b.i.d. p.r.n. elevated blood pressure, Zyrtec 10 mg once a day, krill oil soft gel once a day, omega-3 at 100 mg once a day, Dilaudid 2 mg 1 every 4 hours as needed and increase the dose if pain is not controlled, sertraline 100 mg once a day, Valium 2 mg 1 or 2 every 4 hours as needed for anxiety/restlessness. She was on a Duragesic patch 50 mcg apply and remove every 72 hours, Phenergan 25 mg every 6 hours p.r.n. nausea and vomiting, Zofran 4 mg every 4 hours p.r.n. nausea and vomiting. FAMILY HISTORY: Significant for heart disease and diabetes. HABITS: No tobacco, alcohol, or drugs. SOCIAL HISTORY: She is retired. She lives with her . REVIEW OF SYSTEMS: GENERAL: No major weight changes. HEENT: No particular sinus or allergy problems. RESPIRATORY: No known asthma or COPD. She does have sleep apnea, on CPAP at night. HISTORY AND PHYSICAL [id number] LEXIE MCCLAIN CARDIAC: No history of heart trouble. GASTROINTESTINAL: She has some reflux. GENITOURINARY: No significant problems there. MUSCULOSKELETAL: Had pelvic fracture last month, otherwise she is okay. NEUROLOGIC: No migraines or seizures. She has sleep apnea. PSYCHIATRIC: She has some anxiety. PHYSICAL EXAMINATION: VITAL SIGNS: Temperature 98.2, pulse 84, respirations 18, blood pressure 152/72. GENERAL: She is resting comfortably. She has CPAP on. She has a caregiver at bedside. She is easily awakened. SKIN: Warm and dry. HEENT: Unremarkable. NECK: Supple. HEART: Regular rate and rhythm without murmur. LUNGS: Clear. ABDOMEN: Soft. MUSCULOSKELETAL: She has pain located in the lower back and left hip area. EXTREMITIES: No edema. LABORATORY DATA: Urinalysis is normal. ABG: PH 7.4, pCO2 of 47, pO2 of 97. CBC is normal. Basic metabolic panel is normal. Liver enzymes are okay. Chest x-ray was okay. ASSESSMENT: Intractable pain. Tried at home and not successful in keeping her pain down, but also increased hypoxia with increasing her pain medication at home. PLAN: She is back in. I have increased her Duragesic patch to 100 mcg. She is on supplemental oxygen. We will continue her other medicines p.r.n. Right now, she states she is comfortable. I spoke with her daughter via phone. The daughter is a nurse. I told her that in trying to get her pain down, we have to increase pain medications, her O2 sat may go down, we are going to supplement with oxygen, and we have tried the home situation. We will consult Dr. Telles to see about starting chemo here on Wednesday, other tests or procedures as warranted. TRANSINT:[id number] Voice Confirmation ID: [id number] DOCUMENT ID: [id number] NAN IBARRA MD at 2107 CC: [id number] DICTATION DATE: 11/05/18 1102 STRAIGHT KNIFE MACHINE CUTTER: 11/05/18 1140 ADM IN [facility] [id number] [place] [address]
[2018-11-06] VITALS (7 sets, daily range): BP systolic 113–172; BP diastolic 57–83
--- NOTE | 2018-11-06 08:17 | NUR ---
AWAKE. SLIGHTLY LETHARGIC, DISORIENTED TO TIME AND SITUATION. ON 3LPM VIA NC, DURAGESIC PATCH TO RIGHT SHOULDER, IV TO LEFT FOREARM, PATENT, INFUSING NS AT 60ML/HR. CAREGIVER PRESENT IN ROOM, AMBULATORY WITH ASSISTANCE, BALANCE PROBLEMS. DENIES ANY NEEDS OR DISCOMFORTS, SITTING UP IN RECLINER IN ROOM.CPOC
--- NOTE | 2018-11-06 09:45 | NUR ---
AGITATED, CONFUSED, ARGUMENATIVE WITH CAREGIVERS, DISORIENTED TO PLACE AND SITUATION. NO ADDITIONAL PAIN MEDICATION HAS BEEN ADMINISTERED DURING SHIFT SO FAR. SITTING IN RECLINER IN ROOM, 02 BEING CONTINOUS MONITORED. IV TO LEFT FOREARM PATENT. CHAIR LOCKED, CAREGIVER PRESENT, CALL LIGHT WITHIN REACH. CPOC
--- NOTE | 2018-11-06 09:49 | NUR ---
REORIENTED, OFFERED FLUIDS TO DRINK, OFFERED BATHROOM ASSISTANCE, DENIED ANY NEEDS. CHAIR LOCKED, CALL LIGHT WITHIN REACH. CAREGIVER PRESENT, CPOC
--- NOTE | 2018-11-06 10:20 | NUR ---
SPOKE WITH DR. IBARRA REGARDS TO PT MENTAL STATUS CHANGE, ONLY CHANGE IN MEDICATION RECENTLY HAS BEEN THE DEMEROL AND THE REDUCTION IN MCG OF THE DURAGSIC PATCH. RECIEVED ORDER FOR CT OF THE HEAD WITHOUT CONSTRAST. SPOKE WITH PHARMACY TO SEE IF PT HAD RECIEVED DEMEROL AT ANY OTHER TIME BESIDES THE MOST RECENT, RECORDS SHOW PER ELPIDIO IN PHARMACY THAT SHE HAS NEVER RECIEVED DEMEROL. DR. IBARRA INFORMED ME TO DISCONTINUE DEMEROL IF NEVER HAD BEFORE D/T POSSIBLE ADVERSE REACTIONS TO THE MEDICATION.
--- NOTE | 2018-11-06 12:01 | NUR ---
SPOKE WITH PT DAUGHTER, STATED "PT STARTED ACTING CONFUSED WITH THE VERY FIRST DURAGESIC PATCH THAT WAS PLACED" I EXPLAINED TO HER THE REASON WHY WE HAVEN'T GIVEN HER ANY MORE DEMEROL THIS MORNING. DUE TO THE INCREASED CONFUSION THIS MORNING.
--- NOTE | 2018-11-06 16:22 | NUR ---
I have reviewed this patient and I concur with the Shift Assessment completed by the Licensed Practical Nurse today this shift.
[2018-11-06 17:07] LABS: APPEARANCE CLEAR (CLEAR); COLOR YELLOW (YELLOW); SPECIFIC GRAVITY 1.015 (1.005-1.020)
[2018-11-06 17:08] LABS: BILIRUBIN NEGATIVE (NEGATIVE); GLUCOSE NEGATIVE (NEGATIVE); KETONE SMALL mg/dL (NEGATIVE); NITRITE NEGATIVE (NEGATIVE); PROTEIN NEGATIVE (NEGATIVE); UROBILINOGEN NORMAL (NORMAL)
--- NOTE | 2018-11-06 18:04 | NUR ---
PT CONTINUES TO BE AGITATED AND CONFUSED. ARGUMENTATIVE WITH THE CAREGIVERS. REMOVED 02 MONITOR AND TELEMETRY, SPOKE WITH DR. IBARRA. NO NEW ORDERS RECIEVED.
--- NOTE | 2018-11-07 01:19 | NUR ---
I have reviewed this patient and I concur with the Shift Assessment completed by the Licensed Practical Nurse today this shift.
[2018-11-07 03:45] VITALS: BP 150/65
[2018-11-07 08:42] VITALS: BP 154/60
--- NOTE | 2018-11-07 09:54 | NUR ---
MORNING ASSESSMENT COMPLETE. SEE ASSESSMENT FLOWSHEET FOR FURTHER DETAILS. PT LYING IN BED AAO X4 TO PERSON, PALCE, TIME, AND SITUATION. AND CAREGIVERS AT BEDSIDE. DENIES NEEDS AT THIS TIME. CL IN REACH. SIDE RAILS UP X3 FOR PT SAEFTY. BED IN LOWEST POSITION.
--- NOTE | 2018-11-07 10:03 | NUR ---
PT ON TELEMETRY- RUNNING [address]
[2018-11-07 13:27] VITALS: BP 164/70
--- NOTE | 2018-11-07 15:00 | NUR ---
NUTRITION F/U CHART REVIEWED, PT VISIT. VISITORS AT BEDSIDE. ~25% INTAKE RECENT MEALS. ADDED ENSURE TO MEALS, FOOD PREFERENCES ADDED TO DIET ORDER. RD FOLLOWING
[2018-11-07 18:36] VITALS: BP 151/69
--- NOTE | 2018-11-07 20:41 | NUR ---
REC'D. SCREAMING IN BED GET OUT.DTR AT BEDSIDE AND SITTER. WILL CONTINUE TO MONITOR FOR ANY CHGES AND FOLLOW CURRENT PLAN OF CARE
[2018-11-07 21:12] VITALS: BP 206/71
[2018-11-08 01:43] VITALS: BP 121/53
--- NOTE | 2018-11-08 04:23 | NUR ---
I have reviewed this patient and I concur with the Shift Assessment completed by the Licensed Practical Nurse today this shift.
[2018-11-08 05:31] VITALS: BP 146/75
[2018-11-08 08:30] VITALS: BP 146/74
--- NOTE | 2018-11-08 13:21 | MORECARE ---
CASE MANAGEMENT DISCHARGE SUMMARY PATIENT: LEXIE MCCLAIN UNIT: [id number] ADM DATE: 11/04/18 AGE: 73 : 43 SEX: F ROOM/BED: D.2230 AUTHOR: ROXANA SHEPHERD PHYSICIAN: REFERRING PHYSICIAN: NAN IBARRA MD DATE OF SERVICE: 11/08/18 Discharge Plan Patient Name: LEXIE MCCLAIN [facility] [facility] 1945 Planned Disposition: Home with Home Health Anticipated Discharge Date: Discharge Date: Expected LOS: Initial Reviewer: MAICOL Initial Review Date: 11/08/2018 Generated: 11/08/18 2:20 pm DCPIA - Discharge Planning Initial Assessment Updated by MAICOL: Catarina Dooley on 11/08/18 1:20 pm * Is the patient Alert and Oriented? Yes * How many steps to enter\exit or inside your home? NA * PCP WILLI * Pharmacy [facility] [address] * Preadmission Environment Home with Family * ADLs Partial Dependent * Other Equipment HAS WALKER AND DME IN THE HOME. HAS FAMILY AND PERSONAL CARE GIVERS IN THE HOME WANTS TO [facility]ME [facility] AT [place] * List name and contact numbers for known caregivers / representatives who currently or will assist patient after discharge: MIC GREGG [phone] * Verbal permission to speak to the caregivers and representatives has been obtained from the patient. Yes * Community resources currently utilized Home Health * Please name any agencies selected above. [facility] * Additional services required to return to the preadmission environment? No * Can the patient safely return to the preadmission environment? Yes * Has this patient been hospitalized within the prior 30 days at any hospital? Yes Patient Name: LEXIE MCCLAIN Page [phone] at 1321 All edits/amendments must be made on the electronic document DICTATION DATE: 11/08/18 1320 SCARF GLUER: ANA LUISA 11/08/18 1320 RPT#: [id number] DC DATE: STATUS: ADM IN [facility] [address] [place] [address] END OF REPORT
--- NOTE | 2018-11-08 13:29 | MORECARE ---
CASE MANAGEMENT DISCHARGE SUMMARY PATIENT: LEXIE MCCLAIN UNIT: [id number] ADM DATE: 11/04/18 AGE: 73 : 43 SEX: F ROOM/BED: D.2230 AUTHOR: ROXANA SHEPHERD PHYSICIAN: REFERRING PHYSICIAN: NAN IBARRA MD DATE OF SERVICE: 11/08/18 Discharge Plan Patient Name: LEXIE MCCLAIN Facility: [facility]:[place] : 1945 Planned Disposition: Home with Home Health Anticipated Discharge Date: Discharge Date: Expected LOS: Initial Reviewer: MAICOL Initial Review Date: 11/08/2018 Generated: 11/08/18 2:29 pm Comments DCP- Discharge Planning Updated by [email or web address]: Catarina Dooley on 11/08/18 12:[address] Patient Name: LEXIE MCCLAIN Admission Status: ER Accout number: [id number] Admission Date: 11-04-2018 : 1945 Admission Diagnosis:HYPOXEMIA Attending: NAN IBARRA Current LOS: 4 Anticipated DC Date: Planned Disposition: Home with Home Health Primary Insurance: MEDICARE A & B Discharge Planning Comments: CM MET WITH PT AFTER OBTAINING VERBAL CONSENT TO DO CM ASSESSMENT ABOUT CM ROLE AND ANY DC NEEDS.. EDUCATED PT ON ALL RESOURCES LIKE HH, REHABS, AND ANY DME THEY MIGHT NEED. DENIES ANY CM NEEDS AT THIS TIME. WILL RETURN HOME WITH [facility] AND PERSONAL CAREGIVERS. AND PT STATES THAT IS A SAFE DC PLAN. CM WILL CONTINUE TO FOLLOW Supervisor Electronics Processing: Catarina Dooley DCPIA - Discharge Planning Initial Assessment Updated by [email or web address]: Catarina Dooley on 11/08/18 1:20 pm * Is the patient Alert and Oriented? Yes * How many steps to enter\exit or inside your home? NA * PCP WILLI * Pharmacy [facility] [address] * Preadmission Environment Home with Family * ADLs Partial Dependent * Other Equipment HAS WALKER AND DME IN THE HOME. HAS FAMILY AND PERSONAL CARE GIVERS IN THE HOME WANTS TO [facility]ME [facility] AT [place] * List name and contact numbers for known caregivers / representatives who currently or will assist patient after discharge: MIC GREGG [phone] * Verbal permission to speak to the caregivers and representatives has been obtained from the patient. Yes * Community resources currently utilized Home Health * Please name any agencies selected above. [facility] * Additional services required to return to the preadmission environment? No * Can the patient safely return to the preadmission environment? Yes * Has this patient been hospitalized within the prior 30 days at any hospital? Yes Last DP export: 11/08/18 12:20 pm Patient Name: LEXIE MCCLAIN Page [phone] at 1329 All edits/amendments must be made on the electronic document DICTATION DATE: 11/08/181328 PL SQL DEVELOPER: ANA LUISA 11/08/18 1329 RPT#: [id number] DC DATE: STATUS: ADM IN [facility] [address] [place] [address] END OF REPORT
[2018-11-08 14:00] VITALS: BP 161/73
--- NOTE | 2018-11-08 14:53 | NUR ---
CHEMO STARTED PER HOSPITAL PROTOCOL, PORT ASCESSED WITH GOOD BLOOD RETURN VS TAKING , BP 147/78 O2 SAT 93% HR 81 PATIENT FAmily at bedside
--- NOTE | 2018-11-08 16:01 | NUR ---
RESTING WITH EYES CLOSED.
--- NOTE | 2018-11-08 16:21 | NUR ---
I have reviewed this patient and I concur with the Shift Assessment completed by the Licensed Practical Nurse today this shift.
[2018-11-08 17:07] LABS: BASOPHILS 0.3 % (0-2); EOSINOPHILS 0.4 % (0-7); HEMATOCRIT 32.1 % (36.0-48.0); HEMOGLOBIN 10.1 g/dL (12-16); IMMATURE GRANULOCYTES 0.5 % (0-5); LYMPHOCYTES 7.8 % (15-50); MCH 28.4 pg (26.0-34.0); MCHC 31.5 g/dL (31.0-37.0); MCV 90.2 fL (80.0-100.0); MEAN PLATELET VOLUME 10.3 fL (7.4-10.4); MONOCYTES 1.1 % (2-11); NEUTROPHILS 89.9 % (40-80); PLATELET COUNT 280 10x3/uL (130-400); RBC 3.56 10x6/uL (4.00-5.40); RDW 13.3 % (11.5-14.5); WBC 10.5 10x3/uL (4.8-10.8)
[2018-11-08 17:28] LABS: ALBUMIN 2.6 g/dL (3.4-5.0); ALKALINE PHOSPHATASE 87 U/L (46-116); ALT (SGPT) 20 U/L (10-68); BILIRUBIN - TOTAL 0.32 mg/dL (0.2-1.3); CALC OSMOLALITY 269 mosm/kg (275-300); CALCIUM 8.6 mg/dL (8.5-10.1); CHLORIDE - SERUM 100 mmol/L (98-107); CREATININE - SERUM 0.6 mg/dL (0.6-1.3); POTASSIUM - SERUM 4.3 mmol/L (3.5-5.1); PROTEIN - SERUM 6.7 g/dL (6.4-8.2); SODIUM 134 mmol/L (136-145); UREA NITROGEN 10 mg/dL (7-18); eGFR NON AFRICAN AMERICAN > 90 mL/min (90-120)
[2018-11-08 17:43] LABS: GLUCOSE 159 mg/dL (74-106)
--- NOTE | 2018-11-08 21:10 | NUR ---
AWAKE,ALERT WITH CONFUSION NOTED. RESP EVEN AND UNALBORED. NO DISTRESS NOTED. O2 @ 2L PER NC ON. IV INFUSING TO LFA WITHOUT REDNESS OR EDEMA NOTED.LEFT PORT SL INTACT. SITTERS AT BEDSIDE. CL IN REACH
--- NOTE | 2018-11-08 21:10 | NUR ---
PATIENT AGITATED AND CONFUSED. UP IN ROOM TRYING TO "GO HOME" SITTERS IN ROOM ATTEMPTING TO TALK PATIENT INTO GOING TO BED. CALLED PLACED TO PATIENT DAUGHTER AND PLACED ON SPEAKER BY SITTER. DAUGHTER TALKED WITH PATIENT. HALDOL 1 MG GIVEN PO ORDERED. PATIENT BACK IN BED. C-PAP PLACED ON PER PATIENT. CL IN REACH
[2018-11-08 21:37] VITALS: BP 122/67
--- NOTE | 2018-11-08 23:00 | NUR ---
PATIENT RESITING QUEITLY. NO DISTRESS NOTED. SITTERS REMAIN AT BEDSIDE.
[2018-11-09 01:18] VITALS: BP 126/67
--- NOTE | 2018-11-09 03:53 | NUR ---
I have reviewed this patient and I concur with the Shift Assessment completed by the Licensed Practical Nurse today this shift.
[2018-11-09 06:35] LABS: BASOPHILS 0.1 % (0-2); EOSINOPHILS 0 % (0-7); HEMATOCRIT 28.4 % (36.0-48.0); HEMOGLOBIN 8.9 g/dL (12-16); IMMATURE GRANULOCYTES 0.4 % (0-5); LYMPHOCYTES 8.8 % (15-50); MCH 28.1 pg (26.0-34.0); MCHC 31.3 g/dL (31.0-37.0); MCV 89.6 fL (80.0-100.0); MEAN PLATELET VOLUME 10.7 fL (7.4-10.4); MONOCYTES 5.5 % (2-11); NEUTROPHILS 85.2 % (40-80); PLATELET COUNT 281 10x3/uL (130-400); RBC 3.17 10x6/uL (4.00-5.40); RDW 13.5 % (11.5-14.5); WBC 8.4 10x3/uL (4.8-10.8)
[2018-11-09 06:55] LABS: ALBUMIN 2.3 g/dL (3.4-5.0); ALKALINE PHOSPHATASE 70 U/L (46-116); ALT (SGPT) 19 U/L (10-68); CALC OSMOLALITY 276 mosm/kg (275-300); CALCIUM 8.8 mg/dL (8.5-10.1); CARBON DIOXIDE 31.9 mmol/L (21.0-32.0); CHLORIDE - SERUM 102 mmol/L (98-107); CREATININE - SERUM 0.5 mg/dL (0.6-1.3); GLUCOSE 118 mg/dL (74-106); SODIUM 138 mmol/L (136-145); UREA NITROGEN 12 mg/dL (7-18); eGFR NON AFRICAN AMERICAN > 90 mL/min (90-120)
--- NOTE | 2018-11-09 07:47 | NUR ---
AAOX4. DRIFT OFFS EASILY, SHORT SHALLOW BREATHS, IV TO RIGHT HAND, PATENT, INFUSING NS AT 75ML/HR, ON ROOM AIR, RIGHT ANKLE +3 EDEMA, RED AND WARM TO TOUCH, WEAK PULSE, USES URINAL, AMBULATORY DENIES ANY CURRENT NEEDS OR DISCOMFORTS, BED LOWERED AND LOCKED, CALL LIGHT WITHIN REACH. CPOC
[2018-11-09 08:46] VITALS: BP 139/71
[2018-11-09 09:54] LABS: % SATURATION 22 % (15-55); IRON 37 ug/dl (35-150); TOTAL IRON BIND CAPACITY 163 ug/dl (260-445); UNSAT IRON BIND CAPACITY 126 ug/dl (150-375)
[2018-11-09 10:06] LABS: URIC ACID 3.1 mg/dL (2.6-7.2)
--- NOTE | 2018-11-09 11:14 | MORECARE ---
CASE MANAGEMENT DISCHARGE SUMMARY PATIENT: LEXIE MCCLAIN UNIT: [id number] ADM DATE: 11/04/18 AGE: 73 : 43 SEX: F ROOM/BED: D.2230 AUTHOR: ROXANA SHEPHERD PHYSICIAN: REFERRING PHYSICIAN: NAN IBARRA MD DATE OF SERVICE: 11/09/18 Discharge Plan Patient Name: LEXIE MCCLAIN Facility: [facility]:[place] : 1945 Planned Disposition: Home with Home Health Anticipated Discharge Date: Discharge Date: Expected LOS: Initial Reviewer: [email or web address] Initial Review Date: 11/08/2018 Generated: 11/09/18 12:14 pm Comments DCP- Discharge Planning Updated by [email or web address]: Gretchen Rand on 11/09/18 10:[address] Received an order from Dr. Vázquez for oxygen. Patient states she gets her CPAP from [facility] and would like to use them for oxygen. I called [facility] and faxed clinical. CM will continue to follow and assist with discharge planning/needs. DCP- Discharge Planning Updated by [email or web address]: Catarina Dooley on 11/08/18 12:[address] Patient Name: LEXIE MCCLAIN Admission Status: ER Accout number: [id number] Admission Date: 11-04-2018 : 1945 Admission Diagnosis:HYPOXEMIA Attending: NAN IBARRA Current LOS: 4 Anticipated DC Date: Planned Disposition: Home with Home Health Primary Insurance: MEDICARE A & B Discharge Planning Comments: CM MET WITH PT AFTER OBTAINING VERBAL CONSENT TO DO CM ASSESSMENT ABOUT CM ROLE AND ANY DC NEEDS.. EDUCATED PT ON ALL RESOURCES LIKE HH, REHABS, AND ANY DME THEY MIGHT NEED. DENIES ANY CM NEEDS AT THIS TIME. WILL RETURN HOME WITH [facility] AND PERSONAL CAREGIVERS. AND PT STATES THAT IS A SAFE DC PLAN. CM WILL CONTINUE TO FOLLOW Occupational Health Physiotherapist: Catarina Dooley DCPIA - Discharge Planning Initial Assessment Updated by [email or web address]: Catarina Dooley on 11/08/18 1:20 pm * Is the patient Alert and Oriented? Yes * How many steps to enter\exit or inside your home? NA * PCP WILLI * Pharmacy [facility] [address] * Preadmission Environment Home with Family * ADLs Partial Dependent * Other Equipment HAS WALKER AND DME IN THE HOME. HAS FAMILY AND PERSONAL CARE GIVERS IN THE HOME WANTS TO [facility]ME [facility] AT [place] * List name and contact numbers for known caregivers / representatives who currently or will assist patient after discharge: MIC GREGG [phone] * Verbal permission to speak to the caregivers and representatives has been obtained from the patient. Yes * Community resources currently utilized Home Health * Please name any agencies selected above. [facility] * Additional services required to return to the preadmission environment? No * Can the patient safely return to the preadmission environment? Yes * Has this patient been hospitalized within the prior 30 days at any hospital? Yes External Providers External Provider: [facility] [place] Next Contact Date: Service Request Date: Service Type: Resolution: Reviewer: Comments: Last DP export: 11/08/18 12:29 pm Patient Name: LEXIE MCCLAIN Page [phone] at 1114 All edits/amendments must be made on the electronic document DICTATION DATE: 11/09/18 1113 JOB COACHING: ANA LUISA 11/09/18 1113 RPT#: [id number] DC DATE: STATUS: ADM IN [facility] [address] [place] [address] END OF REPORT
--- NOTE | 2018-11-09 12:16 | MORECARE ---
CASE MANAGEMENT DISCHARGE SUMMARY PATIENT: LEXIE MCCLAIN UNIT: [id number] ADM DATE: 11/04/18 AGE: 73 : 43 SEX: F ROOM/BED: D.2230 AUTHOR: ROXANA SHEPHERD PHYSICIAN: REFERRING PHYSICIAN: NAN IBARRA MD DATE OF SERVICE: 11/09/18 Discharge Plan Patient Name: LEXIE MCCLAIN Facility: [facility]:[place] : 1945 Planned Disposition: Home with Home Health Anticipated Discharge Date: Discharge Date: Expected LOS: Initial Reviewer: [email or web address] Initial Review Date: 11/08/2018 Generated: 11/09/18 1:16 pm Comments DCP- Discharge Planning Updated by [email or web address]: Gretchen Rand on 11/09/18 11:[address] Received a call from [facility] with [facility]. [facility] states the patient does not have a qualifying diagnosis for oxygen. I will inform Dr. Vázquez. CM will continue to follow and assist with discharge planning/needs. DCP- Discharge Planning Updated by [email or web address]: Gretchen Rand on 11/09/18 10:[address] Received an order from Dr. Vázquez for oxygen. Patient states she gets her CPAP from [facility] and would like to use them for oxygen. I called [facility] and faxed clinical. CM will continue to follow and assist with discharge planning/needs. DCP- Discharge Planning Updated by [email or web address]: Catarina Dooley on 11/08/18 12:[address] Patient Name: LEXIE MCCLAIN Admission Status: ER Accout number: [id number] Admission Date: 11-04-2018 : 1945 Admission Diagnosis:HYPOXEMIA Attending: NAN IBARRA Current LOS: 4 Anticipated DC Date: Planned Disposition: Home with Home Health Primary Insurance: MEDICARE A & B Discharge Planning Comments: CM MET WITH PT AFTER OBTAINING VERBAL CONSENT TO DO CM ASSESSMENT ABOUT CM ROLE AND ANY DC NEEDS.. EDUCATED PT ON ALL RESOURCES LIKE HH, REHABS, AND ANY DME THEY MIGHT NEED. DENIES ANY CM NEEDS AT THIS TIME. WILL RETURN HOME WITH [facility] AND PERSONAL CAREGIVERS. AND PT STATES THAT IS A SAFE DC PLAN. CM WILL CONTINUE TO FOLLOW Table Setter: Catarina Dooley DCPIA - Discharge Planning Initial Assessment Updated by [email or web address]: Catarina Dooley on 11/08/18 1:20 pm * Is the patient Alert and Oriented? Yes * How many steps to enter\exit or inside your home? NA * PCP WILLI * Pharmacy [facility] [address] * Preadmission Environment Home with Family * ADLs Partial Dependent * Other Equipment HAS WALKER AND DME IN THE HOME. HAS FAMILY AND PERSONAL CARE GIVERS IN THE HOME WANTS TO [facility]ME [facility] AT [place] * List name and contact numbers for known caregivers / representatives who currently or will assist patient after discharge: MIC GREGG [phone] * Verbal permission to speak to the caregivers and representatives has been obtained from the patient. Yes * Community resources currently utilized Home Health * Please name any agencies selected above. [facility] * Additional services required to return to the preadmission environment? No * Can the patient safely return to the preadmission environment? Yes * Has this patient been hospitalized within the prior 30 days at any hospital? Yes Last DP export: 11/09/18 10:13 am Patient Name: LEXIE MCCLAIN Page 63952 at 1216 All edits/amendments must be made on the electronic document DICTATION DATE: 11/09/18 1216 CHEMICAL MILLING PROCESSOR: ANA LUISA 11/09/18 1216 RPT#: [id number] [place] DATE: STATUS: ADM IN [facility] [address] [place] [address] END OF REPORT
[2018-11-09 12:26] VITALS: BP 155/80
[2018-11-09] MEDS ORDERED: HALDOL ORA30 MG/15 M PO (12:31)
[2018-11-09] MEDS ORDERED: DURAGESIC1 PATCH .2 TRANSDERM (12:32)
[2018-11-09] MEDS ORDERED: ZYLOPRIM100 MG PO ×2 (12:33→12:45)
[2018-11-09 12:36] LABS: APPEARANCE CLEAR (CLEAR); COLOR YELLOW (YELLOW)
[2018-11-09 12:37] LABS: BILIRUBIN NEGATIVE (NEGATIVE); GLUCOSE NEGATIVE (NEGATIVE); KETONE SMALL mg/dL (NEGATIVE); NITRITE NEGATIVE (NEGATIVE); PROTEIN NEGATIVE (NEGATIVE); SPECIFIC GRAVITY 1.015 (1.005-1.020); UROBILINOGEN NORMAL (NORMAL)
[2018-11-09] MEDS ORDERED: PREDNISONE20 MG PO (12:44)
--- NOTE | 2018-11-09 13:13 | MORECARE ---
CASE MANAGEMENT DISCHARGE SUMMARY PATIENT: LEXIE MCCLAIN UNIT: [id number] ADM DATE: 11/04/18 AGE: 73 : 43 SEX: F ROOM/BED: D.2230 AUTHOR: ROXANA SHEPHERD PHYSICIAN: REFERRING PHYSICIAN: ANN IBARRA MD DATE OF SERVICE: 11/09/18 Discharge Plan Patient Name: LEXIE CMCLAIN Facility: [facility]:[place] : 1945 Planned Disposition: Home with Home Health Anticipated Discharge Date: Discharge Date: Expected LOS: Initial Reviewer: [email or web address] Initial Review Date: 11/08/2018 Generated: 11/09/18 2:13 pm Comments DCP- Discharge Planning Updated by [email or web address]: Gretchen Rand on 11/09/18 12:[address] Faxed discharge summary to [facility] with diagnosis of chronic resp failure. [facility] states they will fax order to Dr. Vázquez's office for signature. I informed him she will need portable brought to the hospital prior to discharge. I spoke with Nichelle at [facility] and clinical faxed. CM will continue to follow and assist with discharge planning/needs. DCP- Discharge Planning Updated by [id number]: Gretchen Rand on 11/09/18 11:[address] Received a call from [facility] with [facility]. [facility] states the patient does not have a qualifying diagnosis for oxygen. I will inform Dr. Vázquez. CM will continue to follow and assist with discharge planning/needs. DCP- Discharge Planning Updated by [email or web address]: Gretchen Rand on 11/09/18 10:[address] Received an order from Dr. Vázquez for oxygen. Patient states she gets her CPAP from [facility] and would like to use them for oxygen. I called [facility] and faxed clinical. CM will continue to follow and assist with discharge planning/needs. DCP- Discharge Planning Updated by [email or web address]: Catarina Dooley on 11/08/18 12:[address] Patient Name: LEXIE MCCLAIN Admission Status: ER Accout number: [id number] Admission Date: 11-04-2018 : 1945 Admission Diagnosis:HYPOXEMIA Attending: NAN IBARRA Current LOS: 4 Anticipated DC Date: Planned Disposition: Home with Home Health Primary Insurance: MEDICARE A & B Discharge Planning Comments: CM MET WITH PT AFTER OBTAINING VERBAL CONSENT TO DO CM ASSESSMENT ABOUT CM ROLE AND ANY DC NEEDS.. EDUCATED PT ON ALL RESOURCES LIKE HH, REHABS, AND ANY DME THEY MIGHT NEED. DENIES ANY CM NEEDS AT THIS TIME. WILL RETURN HOME WITH [facility] AND PERSONAL CAREGIVERS. AND PT STATES THAT IS A SAFE DC PLAN. CM WILL CONTINUE TO FOLLOW Crisis Clinician: Catarina Dooley DCPIA - Discharge Planning Initial Assessment Updated by [email or web address]: Catarina Dooley on 11/08/18 1:20 pm * Is the patient Alert and Oriented? Yes * How many steps to enter\exit or inside your home? NA * PCP WILLI * [facility] [address] * Preadmission Environment Home with Family * ADLs Partial Dependent * Other Equipment HAS WALKER AND DME IN THE HOME. HAS FAMILY AND PERSONAL CARE GIVERS IN THE HOME WANTS TO [facility]UME [facility] AT DC * List name and contact numbers for known caregivers / representatives who currently or will assist patient after discharge: MIC GREGG [phone] * Verbal permission to speak to the caregivers and representatives has been obtained from the patient. Yes * Community resources currently utilized Home Health * Please name any agencies selected above. [facility] * Additional services required to return to the preadmission environment? No * Can the patient safely return to the preadmission environment? Yes * Has this patient been hospitalized within the prior 30 days at any hospital? Yes External Providers [facility] Next Contact Date: Service Request Date: Service Type: Resolution: Reviewer: Comments: Last DP export: 11/09/18 11:16 am Patient Name: LEXIE MCCLAIN Page [phone] at 1313 All edits/amendments must be made on the electronic document DICTATION DATE: 11/09/18 1313 HOSPITAL SOCIAL WORKER: ANA LUISA 11/09/18 1313 RPT#: [id number] DC DATE: STATUS: ADM IN [facility] [address] [place] [address] END OF REPORT
--- NOTE | 2018-11-09 16:20 | NUR ---
DISCHARGE INSTRUCTIONS GIVEN, PT AND FAMILY VERBALIZE UNDERSTANDING, IV DISCONTINUED TO LEFT FOREARM, CATHETER TIP INTAKE, LEFT CHEST PORT, HEPARIN FLUSHED PER PROTOCOL AND UNACCESSED BY POWER ANDRES, COVERED WITH GAUZE AND TRANSPARENT DRESSING, DENIES ANY CURRENT QUESTIONS OR CONCERNS, TRANSPORTED OFF UNIT VIA WHEELCHAIR.
[2018-11-11 12:31] VITALS: Ht 165.1 cm; Wt 82.1 kg
--- NOTE | 2018-11-11 12:40 | MORECARE ---
CASE MANAGEMENT DISCHARGE SUMMARY PATIENT: LEXIE MCCLAIN UNIT: [id number] ADM DATE: 11/04/18 AGE: 73 : 43 SEX: F ROOM/BED: D.2230 AUTHOR: ROXANA SHEPHERD PHYSICIAN: REFERRING PHYSICIAN: NAN IBARRA MD DATE OF SERVICE: 11/11/18 Discharge Plan Patient Name: LEXIE MCCLAIN Facility: [facility]:[place] : 1945 Planned Disposition: Home with Home Health Anticipated Discharge Date: Discharge Date: 11/09/2018 Expected LOS: 0 Initial Reviewer: [email or web address] Initial Review Date: 11/08/2018 Generated: 11/11/18 1:40 pm Comments DCP- Discharge Planning Updated by [email or web address]: Gretchen Rand on 11/09/18 12:[address] Faxed discharge summary to [facility] with diagnosis of chronic resp failure. [facility] states they will fax order to Dr. Vázquez's office for signature. I informed him she will need portable brought to the hospital prior to discharge. I spoke with Nichelle at [facility] and clinical faxed. CM will continue to follow and assist with discharge planning/needs. DCP- Discharge Planning Updated by [email or web address]: Gretchen Rand on 11/09/18 11:[address] Received a call from Mem[facility] with [facility]. [facility] states the patient does not have a qualifying diagnosis for oxygen. I will inform Dr. Vázquez. CM will continue to follow and assist with discharge planning/needs. DCP- Discharge Planning Updated by [id number]: Gretchen Rand on 11/09/18 10:[address] Received an order from Dr. Vázquez for oxygen. Patient states she gets her CPAP from [facility] and would like to use them for oxygen. I called [facility] and faxed clinical. CM will continue to follow and assist with discharge planning/needs. DCP- Discharge Planning Updated by [id number]: Catarina Dooley on 11/08/18 12:[address] Patient Name: LEXIE MCCLAIN Admission Status: ER Accout number: [id number] Admission Date: 11-04-2018 : 1945 Admission Diagnosis:HYPOXEMIA Attending: NAN IBARRA Current LOS: 4 Anticipated DC Date: Planned Disposition: Home with Home Health Primary Insurance: MEDICARE A & B Discharge Planning Comments: CM MET WITH PT AFTER OBTAINING VERBAL CONSENT TO DO CM ASSESSMENT ABOUT CM ROLE AND ANY DC NEEDS.. EDUCATED PT ON ALL RESOURCES LIKE HH, REHABS, AND ANY DME THEY MIGHT NEED. DENIES ANY CM NEEDS AT THIS TIME. WILL RETURN HOME WITH [facility] AND PERSONAL CAREGIVERS. AND PT STATES THAT IS A SAFE DC PLAN. CM WILL CONTINUE TO FOLLOW Manufacturing Project Engineer: Catarina Dooley DCPIA - Discharge Planning Initial Assessment Updated by [email or web address]: Catarina Dooley on 11/08/18 1:20 pm * Is the patient Alert and Oriented? Yes * How many steps to enter\exit or inside your home? NA * PCP WILLI * Pharmacy [facility] [address] * Preadmission Environment Home with Family * ADLs Partial Dependent * Other Equipment HAS WALKER AND DME IN THE HOME. HAS FAMILY AND PERSONAL CARE GIVERS IN THE HOME WANTS TO RESUME [facility] AT DC * List name and contact numbers for known caregivers / representatives who currently or will assist patient after discharge: ROBERTA GREGG [phone] * Verbal permission to speak to the caregivers and representatives has been obtained from the patient. Yes * Community resources currently utilized Home Health * Please name any agencies selected above. [facility] * Additional services required to return to the preadmission environment? No * Can the patient safely return to the preadmission environment? Yes * Has this patient been hospitalized within the prior 30 days at any hospital? Yes Coverage Notice Reviewer: [email or web address] Berhane Rand Notice Issued Date-Time: 11/09/2018 13:14 Notice Type: IM Discharge Notice Notice Delivered To: Family Member Relationship to Patient: Daughter Adon Name: Roberta Valerieoswaldo Delivery Method: HAND - Hand Delivered Kaya Days: Prior Verbal Notification: Recipient Understood Notice: Yes Recipient Signature: Yes Med Rec Note Co-signed by Attending: Coverage Notice Comment: IMM explained, signed, given, copy placed in MR. Signed per daughter per patient request Reviewer: [id number] Berhane Rand Notice Issued Date-Time: 11/09/2018 13:14 Notice Type: Patient Choice Letter Notice Delivered To: Patient Relationship to Patient: Adon Name: Delivery Method: HAND - Hand Delivered Kaya Days: Prior Verbal Notification: Recipient Understood Notice: Yes Recipient Signature: Yes Med Rec Note Co-signed by Attending: Coverage Notice Comment: MADHAV for [facility] and [facility] Last DP export: 11/09/18 12:13 pm Patient Name: LEXIE MCCALIN Page [phone] at 1240 All edits/amendments must be made on the electronic document DICTATION DATE: 11/11/18 1240 FOUR CORNER FORMER MACHINE OPERATOR: ANA LUISA 11/11/18 1240 RPT#: [id number] DC DATE:11/09/18 STATUS: DIS IN [facility] [address] [place] [address] END OF REPORT
== END 2018-11-09 16:20 | disposition home or self-care (01) | DRG 841 ==
LOC: D.ER 19:45 → D.MS 22:49
PROVIDERS: Family Medicine; Internal Medicine Hematology & Oncology; ADMIT Family Medicine; ATTEND Family Medicine
DX: C83.33 Diffuse large B-cell lymphoma, intra-abdominal lymph nodes (principal); J96.11 Chronic respiratory failure with hypoxia; G89.3 Neoplasm related pain (acute) (chronic)

== ENCOUNTER 2018-11-23 18:44 | Inpatient (IN) | payer MEDICARE, BC ==
[~2018-11-23] VITALS: Ht 165.1 cm; Wt 79.1 kg
[~2018-11-23 18:44] MED LIST changes: +DURAGESIC1 PATCH .2 TRANSDERM; +HALDOL ORA30 MG/15 M PO; +PREDNISONE20 MG PO; +ZYLOPRIM100 MG PO
--- NOTE | 2018-11-23 19:10 | NUR ---
REPORT TO PHIL STEVE
[2018-11-23 19:23] LABS: HEMOGLOBIN 9.8 g/dL (12-16); MCH 28.7 pg (26.0-34.0); MCHC 32.7 g/dL (31.0-37.0); MCV 87.7 fL (80.0-100.0); MEAN PLATELET VOLUME 9.6 fL (7.4-10.4); PLATELET COUNT 297 10x3/uL (130-400); RBC 3.42 10x6/uL (4.00-5.40); RDW 14.7 % (11.5-14.5); WBC 3.2 10x3/uL (4.8-10.8)
[2018-11-23 19:27] LABS: APTT 44.4 SECONDS (22.8-39.4); INR 1.08 (0.85-1.17); PROTIME 13.5 SECONDS (11.6-15.0)
[2018-11-23 19:39] LABS: ALBUMIN 3.1 g/dL (3.4-5.0); ALKALINE PHOSPHATASE 115 U/L (46-116); ALT (SGPT) 12 U/L (10-68); BILIRUBIN - TOTAL 0.49 mg/dL (0.2-1.3); CALC OSMOLALITY 270 mosm/kg (275-300); CALCIUM 9.4 mg/dL (8.5-10.1); CARBON DIOXIDE 28.2 mmol/L (21.0-32.0); CHLORIDE - SERUM 98 mmol/L (98-107); CREATININE - SERUM 0.7 mg/dL (0.6-1.3); GLUCOSE 104 mg/dL (74-106); POTASSIUM - SERUM 4.2 mmol/L (3.5-5.1); SODIUM 134 mmol/L (136-145); UREA NITROGEN 20 mg/dL (7-18); eGFR NON AFRICAN AMERICAN 86 mL/min (90-120)
[2018-11-23 19:45] LABS: CREATINE KINASE 29 UL (21-215); MAGNESIUM - SERUM 1.9 mg/dL (1.8-2.4); PRO BNP 270 pg/mL (0-450); TROPONIN-I 0.025 ng/mL (0.000-0.060)
[2018-11-23 19:49] LABS: BASOPHILS 1 % (0-2); LYMPHOCYTES 32 % (15-50); NEUTROPHILS 46 % (40-80); PLATELET ESTIMATE NORMAL
[2018-11-23 21:29] LABS: CREATINE KINASE 25 UL (21-215); TROPONIN-I 0.029 ng/mL (0.000-0.060)
--- NOTE | 2018-11-23 22:30 | NUR ---
NOTIFIED IN REPORT THAT DR. EL HAD NOTIFIED DR. MULTANI OF CONSULT FOR PATIENT PRIOR TO PATIENT COMING TO ICU.
--- NOTE | 2018-11-23 22:35 | NUR ---
PT REC'D FROM ED VIA STRETCHER ACCOMP BY ED NURSES. TRANSFERED TO ICU BED WITHOUT DIFFIC. LEASING ASSOCIATE ATTACHED. SR ON CM. HISTORY AND ADMISSION ASSESSMENT COMPLETED. WILL CONT TO MONITOR.
--- NOTE | 2018-11-23 22:40 | NUR ---
PATIENT RECEIVED FROM ED AT 2235 WITH IV IN L AC INFUSING LR AT 75ML/HR. PATIENT IS ALERT AND ORIENTED. LUNGS CTA THROUGHOUT ALL LOBES, RESP UNLABORED AND EVEN. HEART TONES RRR AUSC, ALL SMC'S INTACT. SKIN WARM/DRY WITH CAP REFILL <3SEC. ABDOMEN SOFT AND NON-TENDER TO PALPATION; BS X4 QUADS. CALL LIGHT WITHIN REACH, BED IN LOW POSITION. PATIENT DENIES ANY PAIN AT THIS TIME.
[2018-11-23 23:00] VITALS: BP 123/68
[2018-11-23 23:17] VITALS: BP 145/78; BMI 27.7
[2018-11-24] VITALS (21 sets, daily range): BP systolic 42–175; BP diastolic 52–88; Ht 165.1 cm; Wt 79.1 kg
--- NOTE | 2018-11-24 00:30 | NUR ---
PATIENT IS RESTING WITH EYES CLOSED. AROUSES EASILY TO VERBAL STIMULI. CALL LIGHT WITHIN REACH, BED IN LOW POSITION.
[2018-11-24 02:44] LABS: BASOPHILS 0.5 % (0-2); EOSINOPHILS 0.7 % (0-7); HEMATOCRIT 25.2 % (36.0-48.0); HEMOGLOBIN 8.1 g/dL (12-16); IMMATURE GRANULOCYTES 6.8 % (0-5); LYMPHOCYTES 13.8 % (15-50); MCH 28.6 pg (26.0-34.0); MCHC 32.1 g/dL (31.0-37.0); MEAN PLATELET VOLUME 9.4 fL (7.4-10.4); NEUTROPHILS 56.2 % (40-80); PLATELET COUNT 256 10x3/uL (130-400); RBC 2.83 10x6/uL (4.00-5.40); RDW 14.8 % (11.5-14.5)
[2018-11-24 02:49] LABS: WBC 4.3 10x3/uL (4.8-10.8)
[2018-11-24 03:02] LABS: ALBUMIN 2.4 g/dL (3.4-5.0); ALKALINE PHOSPHATASE 92 U/L (46-116); ALT (SGPT) 11 U/L (10-68); BILIRUBIN - TOTAL 0.34 mg/dL (0.2-1.3); CALC OSMOLALITY 270 mosm/kg (275-300); CALCIUM 8.4 mg/dL (8.5-10.1); CARBON DIOXIDE 29.8 mmol/L (21.0-32.0); CHLORIDE - SERUM 101 mmol/L (98-107); CKMB 0.1 U/L (0.0-3.6); CREATINE KINASE 18 UL (21-215); CREATININE - SERUM 0.7 mg/dL (0.6-1.3); GLUCOSE 94 mg/dL (74-106); POTASSIUM - SERUM 4.3 mmol/L (3.5-5.1); PROTEIN - SERUM 5.8 g/dL (6.4-8.2); SODIUM 135 mmol/L (136-145); UREA NITROGEN 16 mg/dL (7-18); eGFR NON AFRICAN AMERICAN 86 mL/min (90-120)
--- NOTE | 2018-11-24 07:00 | NUR ---
SHIFT ASSESSMENT COMPLETED. PT CARE ASSUMED. MONITORS ON AND WORKING, VITALS STABLE. PT AWAKE AND ALERT, CALL LIGHT WITHIN REACH, SEE FLOW SHEET FOR FURTHER DETAILS. WILL CONTINUE TO OBSERVE.
--- NOTE | 2018-11-24 08:00 | NUR ---
DR DOWNEY AT BEDSIDE. PT AWAKE AND ALERT.
[2018-11-24 08:50] LABS: CKMB 0.3 U/L (0.0-3.6); CREATINE KINASE 26 UL (21-215); TROPONIN-I 0.026 ng/mL (0.000-0.060)
--- NOTE | 2018-11-24 09:00 | NUR ---
FAMILY AT BEDSIDE, UPDATE PROVIDED. PT SITTING UP IN BED EATING BREAKFAST, PT UP TO BEDSIDE COMMODE WITH ASSISTANCE, MONITORS ON AND WORKING, VITALS STABLE, PRN COMMUNICATIONS ADVISOR PUMP SET UP PER MD ORDERS. CALL LIGHT WITHIN REACH, WILL CONTINUE TO OBSERVE.
--- NOTE | 2018-11-24 11:00 | NUR ---
DR MULTANI AT BEDSIDE, NEW ABT ORDERS REC'D AND NOTED. OKAY TO TRANSFER TO FLOOR PER DR MULTANI. WILL TRANSFER WHEN ROOM BECOMES AVAILABLE, NO OTHER CHANGES, SEE FLOW SHEET FOR FURTHER DETAILS, WILL CONTINUE TO OBSERVE.
--- NOTE | 2018-11-24 13:00 | NUR ---
PT TURNED AND REPOSITIONED IN BED FOR COMFORT, PT RESTING QUITELY AT THE MOMENT, CALL LIGHT WITHIN REACH, MONITORS ON AND WORKING, WILL CONTINUE TO OBSERVE.
[2018-11-24 14:32] LABS: HEMATOCRIT 27.2 % (36.0-48.0); HEMOGLOBIN 8.9 g/dL (12-16); LYMPHOCYTES 11.1 % (15-50); MCH 29.7 pg (26.0-34.0); MCHC 32.7 g/dL (31.0-37.0); MCV 90.7 fL (80.0-100.0); MEAN PLATELET VOLUME 9.7 fL (7.4-10.4); NEUTROPHILS 78.9 % (40-80); PLATELET COUNT 274 10x3/uL (130-400); RDW 14.1 % (11.5-14.5)
[2018-11-24 14:35] LABS: WBC 5.9 10x3/uL (4.8-10.8)
--- NOTE | 2018-11-24 15:00 | NUR ---
PT UP TO BEDSIDE COMMODE WITH ASSISTANCE, MONITORS ON AND WORKING, SEE FLOW SHEET FOR FURTHER DETIALS. CALL LIGHT WITHIN REACH, WILL CONTINUE TO OBSERVE.
--- NOTE | 2018-11-24 17:00 | NUR ---
FAMILY AT BEDSIDE, UPDATE PROVIDED. PT AWAKE AND ALERT, NO SIGNS/SYMPTOMS OF PAIN OR DISCOMFORT NOTED. WILL CONTINUE TO OBSERVE.
--- NOTE | 2018-11-24 19:00 | NUR ---
REPORT RECEIVED, CARE ASSUMED. PT IS SITTING UP IN BED AT THIS TIME WATCHING TV. INITIAL ASSESSMENT COMPLETED, SEE FLOWSHEET FOR DETAILS. PT REQUESTED A PHONE FOR HER ROOM, ONE WAS PROVIDED. PT ASSISTED UP TO THE BEDSIDE COMMODE. NO FURTHER NEEDS NOTED AT THIS TIME. WILL CONTINUE TO MONITOR.
--- NOTE | 2018-11-24 21:00 | NUR ---
PT IS RESTING IN BED AT THIS TIME. COMPLAINS OF BEING ANXIOUS, PRN MEDICATIONS GIVEN. ASSISTED PT TO BEDSIDE COMMODE. NO SIGNS OF ACUTE DISTRESS NOTED. WILL CONTINUE TO MONITOR.
--- NOTE | 2018-11-24 23:00 | NUR ---
PT IS RESTING IN BED WITH EYES CLOSED AT THIS TIME. PT DENIES NEEDS CURRENTLY. NO SIGNS OF ACUTE DISTRESS. WILL CONTINUE TO MONITOR.
[2018-11-25] VITALS (8 sets, daily range): BP systolic 104–151; BP diastolic 56–78
--- NOTE | 2018-11-25 01:00 | NUR ---
PT IS LAYING IN BED WITH EYES CLOSED AT THIS TIME. NO SIGNS OF ACUTE DISTRESS. VSS. WILL CONTINUE TO MONITOR.
--- NOTE | 2018-11-25 03:00 | NUR ---
PT IS LAYING IN BED WITH EYES CLOSED. NO NEEDS VOICED AT THIS TIME. NO SIGNS OF ACUTE DISTRESS. WILL CONTINUE TO MONITOR.
[2018-11-25 04:24] LABS: HEMATOCRIT 28.4 % (36.0-48.0); HEMOGLOBIN 8.9 g/dL (12-16); MCH 28.4 pg (26.0-34.0); MCHC 31.3 g/dL (31.0-37.0); MCV 90.7 fL (80.0-100.0); MEAN PLATELET VOLUME 9.6 fL (7.4-10.4); PLATELET COUNT 318 10x3/uL (130-400); RBC 3.13 10x6/uL (4.00-5.40); RDW 15.1 % (11.5-14.5)
[2018-11-25 04:25] LABS: WBC 16.6 10x3/uL (4.8-10.8)
[2018-11-25 04:44] LABS: CALC OSMOLALITY 271 mosm/kg (275-300); CALCIUM 8.7 mg/dL (8.5-10.1); CHLORIDE - SERUM 100 mmol/L (98-107); CREATININE - SERUM 0.7 mg/dL (0.6-1.3); GLUCOSE 98 mg/dL (74-106); POTASSIUM - SERUM 4.1 mmol/L (3.5-5.1); SODIUM 137 mmol/L (136-145); UREA NITROGEN 7 mg/dL (7-18); eGFR NON AFRICAN AMERICAN 86 mL/min (90-120)
[2018-11-25 04:59] LABS: BASOPHILS 1 % (0-2); EOSINOPHILS 1 % (0-7); LYMPHOCYTES 34 % (15-50); MONOCYTES 1 % (2-11); NEUTROPHILS 43 % (40-80); PLATELET ESTIMATE NORMAL
--- NOTE | 2018-11-25 05:00 | NUR ---
PT IS LAYING IN BED WITH EYES CLOSED AT THIS TIME. NO SIGNS OF ACUTE DISTRESS NOTED. VSS. WILL CONTINUE TO MONITOR.
--- NOTE | 2018-11-25 07:00 | NUR ---
SHIFT ASSESSMENT COMPLETED. PT CARE ASSUMED, MONITORS ON AND WORKING, VITALS STABLE. PT AWAKE AND ALERT. NO SIGNS/SYMPTOMS OF PAIN OR DISCOMFORT NOTED, CALL LIGHT WITHIN REACH WILL CONTINUE TO OBSERVE.
--- NOTE | 2018-11-25 09:00 | NUR ---
DC'D MANHOLE BUILDER PUMP, CHANGED PAIN MEDS TO PO. PT AWAKE AND ALERT, FAMILY AT BEDSIDE, UPDATE PROVIDED, CALL LIGHT WITHIN REACH, WILL CONTINUE TO OBSERVE.
--- NOTE | 2018-11-25 11:00 | NUR ---
NO CHANGES, FAMILY AT BEDSIDE, UPDATE PROVIDED NO SIGNS/SYMPTOMS OF PAIN OR DISCOMFORT NOTED. PT AWAKE AND ALERT, WILL CONTINUE TO OBSERVE.
[2018-11-25] MEDS ORDERED: LEVOFLOXACIN500 MG PO (13:07)
--- NOTE | 2018-11-25 14:00 | NUR ---
ORDERS REC,D TO DISCHARGE PT HOME, FAMILY AT BEDSIDE SPOKE WITH FAMILY ABOUT THIS MATTER THEY ARE EXCITED TO GET PT BACK IN HOME SETTING.
--- NOTE | 2018-11-25 14:59 | MORECARE ---
CASE MANAGEMENT DISCHARGE SUMMARY PATIENT: LEXIE MCCLAIN UNIT: [id number] ADM DATE: 11/23/18 AGE: 73 : 43 SEX: F ROOM/BED: D.2313 AUTHOR: ROXANA SHEPHERD PHYSICIAN: REFERRING PHYSICIAN: ZHOU MÁRQUEZ MD DATE OF SERVICE: 11/25/18 Discharge Plan Patient Name: LEXIE MCCLAIN Facility: [facility]:[place] : 1945 Planned Disposition: Home Hlth Svc w Plan Readm Anticipated Discharge Date: 11/25/18 Discharge Date: Expected LOS: 2 Initial Reviewer: [id number] Initial Review Date: 11/25/2018 Generated: 11/25/18 3:59 pm Comments DCP- Discharge Planning Updated by [id number]: Ana Cárdenas on 11/25/18 1:[address] Patient Name: LEXIE MCCLAIN Admission Status: ER Accout number: [id number] Admission Date: 11-23-2018 : 1945 Admission Diagnosis:SEPSIS, UNSPECIFIED ORGANISM Attending: ZHOU MÁRQUEZ Current LOS: 2 Anticipated DC Date: 11-25-2018 Planned Disposition: Home Hlth Svc w Plan Readm Primary Insurance: MEDICARE A & B Discharge Planning Comments: PATIENT IS BEING DISCHARGED FROM HOSPITAL. CM MET BRIEFLY WITH THE PATIENT. SHE STATES HOME ENVIRONMENT IS SAFE AND HAS FAMILY WITH HER. STATES SHE HAS [facility] AND GIVES VERBAL PERMISION TO FAX MEDICAL RECORDS TO [facility]. CM WILL FAX DOCUMENTS. FOLLOW AND ASSIST NEEDED. Automotive Services Manager: Ana Cárdenas External Providers External [facility] Next Contact Date: Service Request Date: Service Type: Resolution: Reviewer: Comments: Patient Name: LEXIE MCCLAIN Page [phone] at 1459 All edits/amendments must be made on the electronic document DICTATION DATE: 11/25/181458 ASBESTOS CEMENT SHEET SUPERVISOR: ANA LUISA 11/25/18 1459 RPT#: [id number] DC DATE: STATUS: ADM IN [facility] [address] [place] [address] END OF REPORT
--- NOTE | 2018-11-25 15:00 | NUR ---
DISCHARGE ORDERS IN AND NOTED. FOLLOW UP APPTS MADE AND DISCUSSED WITH PT AND FAMILY. HOME MEDS REVIEWD WITH PT AND FAMILY STATED UNDERSTANDING. DESTIN ARANA CALLED INTO [facility] PER DR. MULTANI ORDERS. PT AWAKE AND ALERT, VITALS STABLE. NO SIGNS/SYMPTOMS OF PAIN OR DISCOMFORT NOTED AT THIS TIME, WILL CONTINUE TO OBSERVE.
--- NOTE | 2018-11-25 15:30 | NUR ---
PT ASSISTED INTO FAMILY VEHICLE TO DISCHARGE HOME.
--- NOTE | 2018-11-26 13:44 | MORECARE ---
CASE MANAGEMENT DISCHARGE SUMMARY PATIENT: LEXIE MCCLAIN UNIT: [id number] ADM DATE: 11/23/18 AGE: 73 : 43 SEX: F ROOM/BED: D.2313 AUTHOR: ROXANA SHEPHERD PHYSICIAN: REFERRING PHYSICIAN: ZHOU MÁRQUEZ MD DATE OF SERVICE: 11/26/18 Discharge Plan Patient Name: LEXIE MCCLAIN Facility: [facility]:[place] : 1945 Planned Disposition: Home Hlth Svc w Plan Readm Anticipated Discharge Date: 11/25/18 Discharge Date: 11/25/2018 Expected LOS: 2 Initial Reviewer: [email or web address] Initial Review Date: 11/25/2018 Generated: 11/26/18 2:44 pm Comments DCP- Discharge Planning Updated by [email or web address]: Ana Cárdenas on 11/25/18 1:[address] Patient Name: LEXIE MCCLAIN Admission Status: ER Accout number: [id number] Admission Date: 11-23-2018 : 1945 Admission Diagnosis:SEPSIS, UNSPECIFIED ORGANISM Attending: ZHOU MÁRQUEZ Current LOS: 2 Anticipated DC Date: 11-25-2018 Planned Disposition: Home Hlth Svc w Plan Readm Primary Insurance: MEDICARE A & B Discharge Planning Comments: PATIENT IS BEING DISCHARGED FROM HOSPITAL. CM MET BRIEFLY WITH THE PATIENT. SHE STATES HOME ENVIRONMENT IS SAFE AND HAS FAMILY WITH HER. STATES SHE HAS [facility] AND GIVES VERBAL PERMISION TO FAX MEDICAL RECORDS TO [facility]. CM WILL FAX DOCUMENTS. FOLLOW AND ASSIST NEEDED. Scleroscope Tester: Ana Cárdenas Last DP export: 11/25/18 1:59 p Patient Name: LEXIE MCCLAIN Page [phone] at 1344 All edits/amendments must be made on the electronic document DICTATION DATE: 11/26/18 1344 SOAKER HIDES: ANA LUISA 11/26/18 1344 RPT#: [id number] DC DATE:11/25/18 STATUS: DIS IN [facility] [address] [place] [address] END OF REPORT
== END 2018-11-25 17:13 | disposition home or self-care (01) | DRG 872 ==
LOC: D.ER 18:44 → D.ICU 20:01
PROVIDERS: Family Medicine; Internal Medicine Hematology & Oncology; ADMIT Family Medicine; ATTEND Family Medicine
DX: A41.9 Sepsis, unspecified organism (principal); B37.0 Candidal stomatitis; C83.30 Diffuse large B-cell lymphoma, unspecified site; D72.819 Decreased white blood cell count, unspecified; G89.29 Other chronic pain; K21.9 Gastro-esophageal reflux disease without esophagitis

== ENCOUNTER → 2019-01-09 14:39 | Outpatient (CLI) | payer MEDICARE, BC ==
[2018-11-24 12:27] VITALS: BMI 27.6
[~2019-01-09 14:39] MED LIST changes: +LEVOFLOXACIN500 MG PO
== END | disposition home or self-care (01) ==
LOC: D.MRI 14:39
PROVIDERS: ATTEND Internal Medicine Hematology & Oncology
DX: C83.36 Diffuse large B-cell lymphoma, intrapelvic lymph nodes (principal)

== ENCOUNTER 2019-01-13 09:45 | Outpatient (CLI) | payer MEDICARE, BC ==
[~2019-01-13] VITALS: Ht 165.1 cm; Wt 67.3 kg
[2019-01-13 11:25] VITALS: Ht 165.1 cm; Wt 67.3 kg
--- NOTE | 2019-01-13 12:33 | NUR ---
Doing well. Sat up on side of bed for lunch. Ate about 75% of lunch. Voices no needs at present. Blood infusing at 250/ml/hr. Tolerating well. Will continue to monitor.
--- NOTE | 2019-01-13 15:05 | NUR ---
PATIENT COMPLAINS OF PAIN IN LEFT UPPER ABDOMEN. INSTRUCTED PATIENT TO SIT UP AND MOVE AROUND TO MOVE AROUND AIR. PATIENT SITS ON SIDE OF BED AND BURPS. PATIENT STATES THAT FEELS LIKE IT'S A LITTLE BETTER BUT IT STILL HURTS SOME. BP ELEVATED FROM PREVIOUS VITALS: BP 168/69, HR 90, PULSE OX 98% ON RA, RR 18
--- NOTE | 2019-01-13 15:08 | NUR ---
PATIENT STATES SHE HAS SOME PEPCID AC IN HER PURSE AND HAS TAKEN THAT FOR THE PAIN IN HER UPPER ABDOMEN. THIS NURSE ENCOURAGED PATIENT TO WALK AROUND IN THE ROOM AND MAYBE GO TO BATHROOM. NO OTHER CHANGES IN ASSESSMENT OR SYMPTOMS, PATIENT DENIES SHORTNESS OF BREATH. PATIENT STATES SHE FEELS BLOATED AND FULL IN HER UPPER ABDOMEN
--- NOTE | 2019-01-13 15:55 | NUR ---
DR MULTANI PAGED REGARDING PATIENT'S PAIN IN ABDOMEN
--- NOTE | 2019-01-13 16:15 | NUR ---
DR MULTANI RETURNS CALL, THIS NURSE SPEAKS WITH DR MULTANI AND RELAYS RECENT VITAL SIGNS AND REPORTS OF PAIN. DR MULTANI STATES "IT'S BECAUSE SHE HASN'T HAD HER PAIN MEDICINE SINCE SHE'S BEEN THERE. HAVE HER TAKE HER PAIN MEDICINE AND GIVE HER A GI COCKTAIL." CONFIRMED DOSE OF GI COCKTAIL WITH DR MULTANI AND ORDER ENTERED
--- NOTE | 2019-01-13 17:00 | NUR ---
PATIENT STATES UPPER ABDOMINAL PAIN IS BETTER, IS STILL THERE SLIGHTLY BUT FEELS A SIGNIFICANT IMPROVEMENT. BP IMPROVED. PATIENT WANTS TO GO HOME. LEFT FOREARM PIV DC'D WITH TIP INTACT. DISCHARGED HOME, PATIENT OFFERED WHEELCHAIR BUT DECLINES, STATES "I THINK I NEED TO WALK, I FEEL LIKE I CAN AND MAYBE THAT WILL DISLODGE SOME AIR." PATIENT WALKS OUT WITH CAREGIVER
== END 2019-01-13 17:04 | disposition home or self-care (01) ==
LOC: D.OPS 09:45
PROVIDERS: ATTEND Internal Medicine Hematology & Oncology
DX: D64.9 Anemia, unspecified (principal)

== ENCOUNTER 2019-02-05 09:59 | Inpatient (IN) | payer MEDICARE, BC ==
[~2019-02-05] VITALS: Ht 165.1 cm; Wt 68.9 kg
[2019-02-05] VITALS (7 sets, daily range): BP systolic 105–150; BP diastolic 51–75; BMI 25.3
[~2019-02-05 09:59] MED LIST changes: -VYTORIN 10-20 M1 TAB PO; +ZETIA10 MG PO
[2019-02-05 11:12] LABS: HEMATOCRIT 26.5 % (36.0-48.0); HEMOGLOBIN 8.8 g/dL (12-16); MCHC 33.2 g/dL (31.0-37.0); MCV 93.3 fL (80.0-100.0); MEAN PLATELET VOLUME 10.1 fL (7.4-10.4); RBC 2.84 10x6/uL (4.00-5.40); RDW 19.1 % (11.5-14.5); WBC 5.7 10x3/uL (4.8-10.8)
[2019-02-05 11:13] LABS: PLATELET COUNT 111 10x3/uL (130-400)
[2019-02-05 11:15] LABS: ALKALINE PHOSPHATASE 65 U/L (46-116); ALT (SGPT) 7 U/L (10-68); BILIRUBIN - TOTAL 0.41 mg/dL (0.2-1.3); CALC OSMOLALITY 269 mosm/kg (275-300); CALCIUM 8.7 mg/dL (8.5-10.1); CARBON DIOXIDE 27.6 mmol/L (21.0-32.0); CHLORIDE - SERUM 99 mmol/L (98-107); CREATININE - SERUM 0.8 mg/dL (0.6-1.3); GLUCOSE 117 mg/dL (74-106); POTASSIUM - SERUM 3.8 mmol/L (3.5-5.1); PROTEIN - SERUM 6.5 g/dL (6.4-8.2); SODIUM 134 mmol/L (136-145); UREA NITROGEN 14 mg/dL (7-18); eGFR NON AFRICAN AMERICAN 74 mL/min (90-120)
[2019-02-05 11:25] LABS: INR 1.14 (0.85-1.17); PROTIME 14.1 SECONDS (11.6-15.0)
[2019-02-05 11:26] LABS: APTT 47.2 SECONDS (22.8-39.4); CREATINE KINASE 22 UL (21-215); TROPONIN-I 0.058 ng/mL (0.000-0.060)
[2019-02-05 12:05] LABS: LYMPHOCYTES 10 % (15-50); MONOCYTES 25 % (2-11); NEUTROPHILS 50 % (40-80); PLATELET ESTIMATE DECREASED
[2019-02-05 12:06] LABS: ANISOCYTOSIS OCC
[2019-02-05 12:45] LABS: APPEARANCE CLEAR (CLEAR); COLOR ORANGE (YELLOW); SPECIFIC GRAVITY 1.015 (1.005-1.020)
[2019-02-05 12:50] LABS: BACTERIA FEW /hpf (NONE SEEN); EPITHELIAL CELLS 0-5 /hpf (0-5); MUCUS >1+ /lpf (NONE SEEN); RED CELLS - URINE RARE /hpf (0-5)
[2019-02-05] MEDS ORDERED: ULTRAM50 MG PO (16:17)
[2019-02-05] MEDS ORDERED: ACETAMINOPHEN325 MG PO (16:18)
[2019-02-05] MEDS ORDERED: NYSTATIN (16:20)
[2019-02-05] MEDS ORDERED: VITAMIN B-1250 MCG PO (16:22)
[2019-02-05] MEDS ORDERED: COLACE100 MG PO (16:22)
[2019-02-05] MEDS ORDERED: NEXIUM20 MG PO (16:23)
[2019-02-05] MEDS ORDERED: MIRALAX17 GM PO (16:23)
[2019-02-05] MEDS ORDERED: GABAPENTIN100 MG PO (16:24)
[2019-02-05] MEDS ORDERED: VALIUM 2 MG TAB2 MG PO (16:39)
--- NOTE | 2019-02-05 17:52 | NUR ---
RESTING IN BED. DENIES PAIN. DENIES NEEDS. BED LOW. CALL DIGGS AND PERSONAL ITEMS IN REACH. WILL CONTINUE TO MONITOR.
--- NOTE | 2019-02-05 19:15 | NUR ---
RECEIVED CARE FROM DAY NURSE. IN BED IN HIGH FOWLERS POSITION. SPOUSE AT SIDE. COVERED PM MEDS WITH PT AND SPOUSE. NO NEEDS VOICED AT THIS TIME. CALL LIGHT AT SIDE. IV INFUSING PER ORDER TO PATENT LEFT FA.
[2019-02-06] VITALS: BP 136/64
--- NOTE | 2019-02-06 03:00 | NUR ---
I have reviewed this patient and I concur with the Shift Assessment completed by the Licensed Practical Nurse today this shift.
[2019-02-06 04:00] VITALS: BP 124/59
[2019-02-06 05:11] LABS: BASOPHILS 0.6 % (0-2); EOSINOPHILS 0.8 % (0-7); HEMOGLOBIN 7.7 g/dL (12-16); IMMATURE GRANULOCYTES 4.4 % (0-5); LYMPHOCYTES 4.6 % (15-50); MCH 30.4 pg (26.0-34.0); MCHC 32.1 g/dL (31.0-37.0); MCV 94.9 fL (80.0-100.0); MEAN PLATELET VOLUME 10.5 fL (7.4-10.4); MONOCYTES 20.1 % (2-11); NEUTROPHILS 69.5 % (40-80); PLATELET COUNT 108 10x3/uL (130-400); RBC 2.53 10x6/uL (4.00-5.40); RDW 19.4 % (11.5-14.5)
[2019-02-06 05:14] LABS: ANION GAP 9.4 mmol/L (8-16); CALCIUM 8.2 mg/dL (8.5-10.1); CARBON DIOXIDE 28.3 mmol/L (21.0-32.0); CREATININE - SERUM 0.8 mg/dL (0.6-1.3); POTASSIUM - SERUM 3.7 mmol/L (3.5-5.1)
[2019-02-06 08:52] VITALS: BP 143/66
[2019-02-06 12:23] VITALS: BP 121/64
[2019-02-06 13:41] VITALS: Ht 165.1 cm; Wt 68.9 kg
[2019-02-06] MEDS ORDERED: LEVAQUIN750 MG PO (13:45)
--- NOTE | 2019-02-06 16:52 | NUR ---
PATIENT BLOOD STARTED AT THIS TIME. IV INTACT. VS STABLE. NO COMPLAINTS OR SIGNS OF DISTRESS. WILL CONTINUE TO MONITOR. CALL LIGHT WITHIN REACH.
--- NOTE | 2019-02-06 17:05 | NUR ---
PATIENT VS STABLE AND BLOOD INFUSING. NO COMPLAINTS OR SIGNS OF DISTRESS. CALL LIGHT WITHIN REACH.
--- NOTE | 2019-02-06 17:10 | MORECARE ---
CASE MANAGEMENT DISCHARGE SUMMARY PATIENT: LEXIE MCCLAIN UNIT: [id number] ADM DATE: 02/05/19 AGE: 73 : 43 SEX: F ROOM/BED: D.2223 AUTHOR: ROXANA SHEPHERD PHYSICIAN: REFERRING PHYSICIAN: ZHOU MÁRQUEZ MD DATE OF SERVICE: 02/06/19 Discharge Plan Patient Name: LEXIE MCCLAIN Facility: [facility]:[place] : 1945 Planned Disposition: Home Anticipated Discharge Date: 02/06/19 Discharge Date: Expected LOS: 1 Initial Reviewer: [email or web address] Initial Review Date: 02/06/2019 Generated: 02/06/19 6:09 pm Comments DCP- Discharge Planning Updated by [id number]: Gretchen Rand on 02/06/19 4:[address] Patient Name: LEXIE MCCLAIN Admission Status: ER Accout number: [id number] Admission Date: 02-05-2019 : 1945 Admission Diagnosis: Attending: ZHOU MÁRQUEZ Current LOS: 1 Anticipated DC Date: 02-06-2019 Planned Disposition: Home Primary Insurance: MEDICARE A & B Discharge Planning Comments: CM met with patient to complete initial dc planning assessment. CM educated patient on the CM role and verbal consent given by patient to complete assessment. Patient lives at home with her . At discharge patient plans to return and feels this is a safe discharge. CM discussed availability of home health, rehab services, and medical equipment. Patient is current with [facility] and would like to resume on discharge. Denies other needs at this time. States her will pick her up on discharge. CM will continue to follow and will assist as needed with dc plans/needs. Global Professional: Gretchen Rand DCPIA - Discharge Planning Initial Assessment Updated by [id number]: Gretchen Rand on 02/06/19 5:05 pm * Is the patient Alert and Oriented? Yes * How many steps to enter\exit or inside your home? 0/0 * PCP Dr. Márquez * Pharmacy [facility] on [address] * Preadmission Environment Home with Family * ADLs Independent * Equipment CPAP Other Walker Wheelchair * Other Equipment Portable oxygen * List name and contact numbers for known caregivers / representatives who currently or will assist patient after discharge: Billy Mcclain - spouse - [phone] Roberta Pink - DTR - [phone] Milly George - DTR - [phone] * Verbal permission to speak to the caregivers and representatives has been obtained from the patient. Yes * Community resources currently utilized Home Health * Please name any agencies selected above. [facility] * Additional services required to return to the preadmission environment? No * Can the patient safely return to the preadmission environment? Yes * Has this patient been hospitalized within the prior 30 days at any hospital? No Patient Name: LEXIE MCCLAIN Page [phone] at 1710 All edits/amendments must be made on the electronic document DICTATION DATE: 02/06/191708 LABORER COOK HOUSE: ANA LUISA 02/06/191708 RPT#: [id number] DC DATE: STATUS: ADM IN [facility] [address] [place] [address] END OF REPORT
--- NOTE | 2019-02-06 19:00 | NUR ---
BLOOD FINISHED AT THIS TIME. PATIENT IV REMOVED WITH CATH TIP INTACT. TO BE DC'D AFTER TRANSFUSION. NO COMPLAINTS. VS STABLE. CALL LIGHT WITHIN REACH.
--- NOTE | 2019-02-07 07:06 | MORECARE ---
CASE MANAGEMENT DISCHARGE SUMMARY PATIENT: LEXIE MCCLAIN UNIT: [id number] ADM DATE: 02/05/19 AGE: 73 : 43 SEX: F ROOM/BED: D.2223 AUTHOR: ROXANA SHEPHERD PHYSICIAN: REFERRING PHYSICIAN: ZHOU MÁRQUEZ MD DATE OF SERVICE: 02/07/19 Discharge Plan Patient Name: LEXIE MCCLAIN Facility: [facility]:[place] : 1945 Planned Disposition: Home Anticipated Discharge Date: 02/06/19 Discharge Date: 02/06/2019 Expected LOS: 1 Initial Reviewer: [email or web address] Initial Review Date: 02/06/2019 Generated: 02/07/19 8:06 am Comments DCP- Discharge Planning Updated by [email or web address]: Gretchen Rand on 02/07/19 5:[address] Discharge clinical faxed to [facility]. DCP- Discharge Planning Updated by [id number]: Gretchen Rand on 02/06/19 4:[address] Patient Name: LEXIE MCCLAIN Admission Status: ER Accout number: [id number] Admission Date: 02-05-2019 : 1945 Admission Diagnosis: Attending: ZHOU MÁRQUEZ Current LOS: 1 Anticipated DC Date: 02-06-2019 Planned Disposition: Home Primary Insurance: MEDICARE A & B Discharge Planning Comments: CM met with patient to complete initial dc planning assessment. CM educated patient on the CM role and verbal consent given by patient to complete assessment. Patient lives at home with her . At discharge patient plans to return and feels this is a safe discharge. CM discussed availability of home health, rehab services, and medical equipment. Patient is current with [facility] and would like to resume on discharge. Denies other needs at this time. States her will pick her up on discharge. CM will continue to follow and will assist as needed with dc plans/needs. House Superintendent: Gretchen Rand DCPIA - Discharge Planning Initial Assessment Updated by [email or web address]: Gretchen Rand on 02/06/19 5:05 pm * Is the patient Alert and Oriented? Yes * How many steps to enter\exit or inside your home? 0/0 * PCP Dr. Márquez * Pharmacy [facility] on [address] * Preadmission Environment Home with Family * ADLs Independent * Equipment CPAP Other Walker Wheelchair * Other Equipment Portable oxygen * List name and contact numbers for known caregivers / representatives who currently or will assist patient after discharge: Billy Mcclain - spouse - [phone] Roberta Pink - DTR - [phone] Milly Vazquez - DTR - [phone] * Verbal permission to speak to the caregivers and representatives has been obtained from the patient. Yes * Community resources currently utilized Home Health * Please name any agencies selected above. [facility] * Additional services required to return to the preadmission environment? No * Can the patient safely return to the preadmission environment? Yes * Has this patient been hospitalized within the prior 30 days at any hospital? No External Providers External Provider: [facility] Next Contact Date: Service Request Date: Service Type: Resolution: Reviewer: Comments: Last DP export: 02/06/19 4:10 pm Patient Name: LEXIE MCCLAIN Page [phone] at 0706 All edits/amendments must be made on the electronic document DICTATION DATE: 02/07/19704 WELDER GAS TUNGSTEN ARC: ANA LUISA 02/07/19704 RPT#: [id number] DC DATE:02/06/19 STATUS: DIS IN [facility] [address] [place] [address] END OF REPORT
--- NOTE | 2019-02-07 15:27 | MORECARE ---
CASE MANAGEMENT DISCHARGE SUMMARY PATIENT: LEXIE MCCLAIN UNIT: [id number] ADM DATE: 02/05/19 AGE: 73 : 43 SEX: F ROOM/BED: D.2223 AUTHOR: ROXANA SHEPHERD PHYSICIAN: REFERRING PHYSICIAN: ZHOU MÁRQUEZ MD DATE OF SERVICE: 02/07/19 Discharge Plan Patient Name: LEXIE MCCLAIN Facility: [facility]:[place] : 1945 Planned Disposition: Home Anticipated Discharge Date: 02/06/19 Discharge Date: 02/06/2019 Expected LOS: 1 Initial Reviewer: [email or web address] Initial Review Date: 02/06/2019 Generated: 02/07/19 4:27 pm Comments DCP- Discharge Planning Updated by [email or web address]: Gretchen Rand on 02/07/19 5:[address] Discharge clinical faxed to [facility]. DCP- Discharge Planning Updated by [email or web address]: Gretchen Rand on 02/06/19 4:[address] Patient Name: LEXIE MCCLAIN Admission Status: ER Accout number: [id number] Admission Date: 02-05-2019 : 1945 Admission Diagnosis: Attending: ZHOU MÁRQUEZ Current LOS: 1 Anticipated DC Date: 02-06-2019 Planned Disposition: Home Primary Insurance: MEDICARE A & B Discharge Planning Comments: CM met with patient to complete initial dc planning assessment. CM educated patient on the CM role and verbal consent given by patient to complete assessment. Patient lives at home with her . At discharge patient plans to return and feels this is a safe discharge. CM discussed availability of home health, rehab services, and medical equipment. Patient is current with [facility] and would like to resume on discharge. Denies other needs at this time. States her will pick her up on discharge. CM will continue to follow and will assist as needed with dc plans/needs. Processing Tech: Gretchen Rand DCPIA - Discharge Planning Initial Assessment Updated by [id number]: Gretchen Rand on 02/06/19 5:05 pm * Is the patient Alert and Oriented? Yes * How many steps to enter\exit or inside your home? 0/0 * PCP Dr. Márquez * Pharmacy [facility] on [address] * Preadmission Environment Home with Family * ADLs Independent * Equipment CPAP Other Walker Wheelchair * Other Equipment Portable oxygen * List name and contact numbers for known caregivers / representatives who currently or will assist patient after discharge: Billy Mcclain - spouse - [phone] Roberta Pink - DTR - [phone] Milly Vazquez - DTR - [phone] * Verbal permission to speak to the caregivers and representatives has been obtained from the patient. Yes * Community resources currently utilized Home Health * Please name any agencies selected above. [facility] * Additional services required to return to the preadmission environment? No * Can the patient safely return to the preadmission environment? Yes * Has this patient been hospitalized within the prior 30 days at any hospital? No Last DP export: 02/07/19 6:06 am Patient Name: LEXIE MCCLAIN Page [phone] at 1527 All edits/amendments must be made on the electronic document DICTATION DATE: 02/07/19 1527 SEE WHEELER: ANA LUISA 02/07/19 1527 RPT#: [id number] DC DATE:02/06/19 STATUS: DIS IN [facility] [address] [place] [address] END OF REPORT
== END 2019-02-06 20:20 | disposition home health service (06) | DRG 812 ==
LOC: D.ER 09:59 → D.MS 14:57
PROVIDERS: Emergency Medicine; ADMIT Family Medicine; ATTEND Family Medicine
DX: D64.81 Anemia due to antineoplastic chemotherapy (principal); C85.10 Unspecified B-cell lymphoma, unspecified site; N39.0 Urinary tract infection, site not specified

== ENCOUNTER 2019-02-19 19:48 | Inpatient (IN) | payer MEDICARE, BC ==
[~2019-02-19] VITALS: Ht 165.1 cm; Wt 65.8 kg
[~2019-02-19 19:48] MED LIST changes: +ACETAMINOPHEN325 MG PO; +COLACE100 MG PO; +GABAPENTIN100 MG PO; +LEVAQUIN750 MG PO; +MIRALAX17 GM PO; +NEXIUM20 MG PO; +NYSTATIN; +ULTRAM50 MG PO; +VITAMIN B-1250 MCG PO
--- NOTE | 2019-02-19 20:22 | NUR ---
PATIENT PRESENTS [facility]IA [facility] WITH REPORTS OF N/V X TWO DAYS - SHE IS CURRENTLY RECEIVING [place] FOR BONE CANCER. PT IS AAOX4 - FEBRILE AND NAUSEOUS UPON ARRIVAL TO ED
[2019-02-19 20:26] LABS: BASOPHILS 0.1 % (0-2); EOSINOPHILS 0.5 % (0-7); HEMATOCRIT 31.6 % (36.0-48.0); HEMOGLOBIN 10.5 g/dL (12-16); IMMATURE GRANULOCYTES 0.3 % (0-5); LYMPHOCYTES 2.3 % (15-50); MCH 31.1 pg (26.0-34.0); MCHC 33.2 g/dL (31.0-37.0); MCV 93.5 fL (80.0-100.0); MEAN PLATELET VOLUME 9.6 fL (7.4-10.4); MONOCYTES 2.6 % (2-11); NEUTROPHILS 94.2 % (40-80); RBC 3.38 10x6/uL (4.00-5.40); RDW 17.6 % (11.5-14.5); WBC 15.5 10x3/uL (4.8-10.8)
[2019-02-19 20:27] LABS: PLATELET COUNT 240 10x3/uL (130-400)
[2019-02-19 20:35] LABS: INR 1.13 (0.85-1.17)
[2019-02-19 20:43] LABS: ALBUMIN 3.1 g/dL (3.4-5.0); ALKALINE PHOSPHATASE 63 U/L (46-116); ALT (SGPT) 12 U/L (10-68); BILIRUBIN - TOTAL 0.54 mg/dL (0.2-1.3); CALC OSMOLALITY 286 mosm/kg (275-300); CALCIUM 8.9 mg/dL (8.5-10.1); CHLORIDE - SERUM 103 mmol/L (98-107); CREATININE - SERUM 0.9 mg/dL (0.6-1.3); POTASSIUM - SERUM 3.9 mmol/L (3.5-5.1); PROTEIN - SERUM 6.7 g/dL (6.4-8.2); SODIUM 140 mmol/L (136-145); UREA NITROGEN 25 mg/dL (7-18); eGFR NON AFRICAN AMERICAN 65 mL/min (90-120)
[2019-02-19 20:44] LABS: GLUCOSE 165 mg/dL (74-106)
[2019-02-19 20:51] LABS: APPEARANCE CLEAR (CLEAR); BILIRUBIN NEGATIVE (NEGATIVE); COLOR YELLOW (YELLOW); GLUCOSE NEGATIVE (NEGATIVE); KETONE NEGATIVE (NEGATIVE); NITRITE NEGATIVE (NEGATIVE); PROTEIN TRACE mg/dL (NEGATIVE); UROBILINOGEN NORMAL (NORMAL)
[2019-02-19 20:53] LABS: CKMB 0.1 U/L (0.0-3.6); CREATINE KINASE 26 UL (21-215); TROPONIN-I 0.036 ng/mL (0.000-0.060)
[2019-02-19 21:10] VITALS: BP 135/60
--- NOTE | 2019-02-19 22:30 | NUR ---
PT ARRIVED TO FLOOR VIA STRETCHER, ALERT AND ORIENTED X4. WITHOUT DISTRESS. AT BEDSIDE. DENIES NAUSEA AT THIS TIME. BOWEL SOUNDS ACTIVE X4. LUNGS CTA. O2 2L/NC. IV LEFT AC INFUSING NS @ 100. PT HAS SLIGHT GENERALIZED WEAKNESS, ABLE TO AMBULATE WITH ASSIST TO BATHROOM. FELICIA ON. DENIES PAIN AT THIS TIME. REFUSED TO CHANGED FENTANYL PATCH FROM HOME STATING THEY HAD JUST PLACED PATCH ON THIS AM. VSS. DENIES ANY NEEDS. CL IN REACH, WILL CTM
[2019-02-19 22:44] VITALS: BP 114/59; BMI 24.1
[2019-02-19] MEDS ORDERED: ZOLOFT100 MG PO (23:14)
[2019-02-20] VITALS: BP 114/59
--- NOTE | 2019-02-20 01:00 | NUR ---
ASSISTED PT TO BATHROOM AND BACK TO BED WITH ASSIST. SLIGHT BALANCE ISSUES. STATES SHE IS USING WALKER AT HOME. DENIES PAIN OR NEEDS. FELICIA ON, BED LOWEST POSITION, SRX2. CL IN REACH, WILL CTM
[2019-02-20 04:00] VITALS: BP 114/66
[2019-02-20 06:36] LABS: BASOPHILS 0.2 % (0-2); EOSINOPHILS 1.3 % (0-7); HEMATOCRIT 26.9 % (36.0-48.0); HEMOGLOBIN 8.7 g/dL (12-16); IMMATURE GRANULOCYTES 0.2 % (0-5); MCH 30.7 pg (26.0-34.0); MCHC 32.3 g/dL (31.0-37.0); MCV 95.1 fL (80.0-100.0); MONOCYTES 4.3 % (2-11); PLATELET COUNT 216 10x3/uL (130-400); RBC 2.83 10x6/uL (4.00-5.40); RDW 18.3 % (11.5-14.5); WBC 13.2 10x3/uL (4.8-10.8)
[2019-02-20 07:18] LABS: ANION GAP 9.5 mmol/L (8-16); CALCIUM 8.3 mg/dL (8.5-10.1); CARBON DIOXIDE 28.3 mmol/L (21.0-32.0); CREATININE - SERUM 0.9 mg/dL (0.6-1.3); PHOSPHOROUS 4.2 mg/dL (2.5-4.9); POTASSIUM - SERUM 3.8 mmol/L (3.5-5.1)
[2019-02-20 08:34] VITALS: BP 111/54
[2019-02-20 13:48] VITALS: BP 107/46; BP 110/58
[2019-02-20 14:17] VITALS: BMI 24.1
--- NOTE | 2019-02-20 14:35 | NUR ---
CAREGIVER AT BEDSIDE. PT IS WITHOUT NEEDS.
[2019-02-20 17:50] VITALS: BP 103/51
[2019-02-20 18:09] VITALS: Ht 165.1 cm; Wt 65.8 kg
--- NOTE | 2019-02-20 19:30 | NUR ---
ASSISTED UP TO BR TO VOID. ALERT AND ORIENTED X4 BUT CONFUSED AT TIMES. FELICIA ALARM IN USE FOR PT SAFETY. RESP EVEN AND NONLABORED. REPORTS PAIN IN LT HIP 5. GAIT SLIGHTLY UNSTEADY. NS @ 100 ML/HR INFUSING IN RT FOREARM WITHOUT DIFF. SCDS IN USE BILAT. SR ELEVATED X2. CL IN REACH.
[2019-02-20 21:15] VITALS: BP 138/59
[2019-02-21 01:53] VITALS: BP 136/54
--- NOTE | 2019-02-21 02:03 | NUR ---
HAS RESTED WELL SO FAR THIS SHIFT. UP TO BR TO VOID A FEW TIMES. NO DISTRESS. FELICIA ALARM IN USE. CL IN REACH.
[2019-02-21 05:36] VITALS: BP 157/74
[2019-02-21 06:55] LABS: BASOPHILS 0.4 % (0-2); EOSINOPHILS 6.4 % (0-7); HEMATOCRIT 27.1 % (36.0-48.0); HEMOGLOBIN 8.7 g/dL (12-16); IMMATURE GRANULOCYTES 0.2 % (0-5); LYMPHOCYTES 7.6 % (15-50); MCHC 32.1 g/dL (31.0-37.0); MCV 96.4 fL (80.0-100.0); MEAN PLATELET VOLUME 9.6 fL (7.4-10.4); NEUTROPHILS 74.4 % (40-80); PLATELET COUNT 196 10x3/uL (130-400); RBC 2.81 10x6/uL (4.00-5.40); RDW 18.1 % (11.5-14.5)
[2019-02-21 07:13] LABS: ALBUMIN 2.4 g/dL (3.4-5.0); ANION GAP 9.7 mmol/L (8-16); BILIRUBIN - TOTAL 0.27 mg/dL (0.2-1.3); CALCIUM 8.9 mg/dL (8.5-10.1); CARBON DIOXIDE 29.6 mmol/L (21.0-32.0); CREATININE - SERUM 0.8 mg/dL (0.6-1.3); POTASSIUM - SERUM 4.3 mmol/L (3.5-5.1); PROTEIN - SERUM 5.8 g/dL (6.4-8.2)
[2019-02-21 07:20] LABS: WBC 4.7 10x3/uL (4.8-10.8)
--- NOTE | 2019-02-21 07:35 | NUR ---
PATIENT RESTING WITH NO NEEDS VICED, CL IN REACH
[2019-02-21 08:59] VITALS: BP 148/69
--- NOTE | 2019-02-21 14:02 | NUR ---
PATIENT WAS GIVEN FLEETS ENEMA AND DULCOLAX SUP WITH NO RESULTS. FIRM STOOL NOTED IN RECTUM. PATIENT WAS GIVEN SOAP SUDS ENEMA WITH GOOD RESULTS AND LARGE AMOUNTS OF FIRM STOOL REMOVED.
[2019-02-21 17:51] VITALS: BP 154/62
--- NOTE | 2019-02-21 19:25 | NUR ---
GILMER IN BED, STATED SHE HAD A HARD DAY AND WOULD LIKE TO GO TO SLEEP SOON, INFORMED HER I WOULD BE BACK WITH EVENING MEDS, VOICES NO FURTHER COMPLAINTS.
--- NOTE | 2019-02-21 20:25 | NUR ---
UPON ADMINISTRATION OF EVENING MEDS, SHE STATES SHE DOES NOT TAKE THE CLONIDINE SCHEDULED, ONLY PRN, AND THAT SHE TAKES MICARDIS TWICE A DAY AND THAT SHE TAKES 50MG ZOLOFT IN MORNING AND 100MG AT NIGHT, THIS NURSE REVIEWED MAR WITH HER AND TOLD HER WE WOULD HAVE IT REVIEWED BY ATTENDING. SHE WAS NOT PLEASED AND SAID THAT THEY DID HER MEDICATIONS CORRECTLY LAST NIGHT AND SHE DOES NOT UNDERSTAND WHAT HAPPENED, THIS NURSE REVIEWED MAR FROM PREVIOUS SHIFT AND THIS MORNING AND IT APPEARS THAT THERE HAS BEEN ZERO CHANGES IN THE THREE LISTED MEDICATIONS, THIS NURSE ASSURED HER THAT WE WILL HAVE THEM REVIEWED, SHE SAID SHE WOULD LIKE TO JUST GO TO BED NOW. ALL NEEDS WERE MET AT THAT TIME, CALL LIGHT IS IN REACH. ABLE TO VOICE ALL NEEDS.
[2019-02-21 21:16] VITALS: BP 139/62
--- NOTE | 2019-02-21 23:29 | NUR ---
REQUESTED DIAZEPAM FOR ANXIETY SHE IS UNABLE TO SLEEP AT THIS TIME. WILL NOTE ANY CHANGE.
[2019-02-22 00:56] VITALS: BP 146/65
[2019-02-22 05:54] VITALS: BP 153/79
[2019-02-22 07:40] LABS: BASOPHILS 0.6 % (0-2); EOSINOPHILS 3.8 % (0-7); HEMATOCRIT 26.1 % (36.0-48.0); HEMOGLOBIN 8.5 g/dL (12-16); IMMATURE GRANULOCYTES 0.4 % (0-5); LYMPHOCYTES 8.7 % (15-50); MCH 30.8 pg (26.0-34.0); MCHC 32.6 g/dL (31.0-37.0); MCV 94.6 fL (80.0-100.0); MEAN PLATELET VOLUME 10.1 fL (7.4-10.4); MONOCYTES 11.3 % (2-11); NEUTROPHILS 75.2 % (40-80); PLATELET COUNT 193 10x3/uL (130-400); RBC 2.76 10x6/uL (4.00-5.40); RDW 18.1 % (11.5-14.5)
[2019-02-22 07:58] LABS: ALBUMIN 2.5 g/dL (3.4-5.0); ANION GAP 10.6 mmol/L (8-16); BILIRUBIN - TOTAL 0.37 mg/dL (0.2-1.3); CALCIUM 8.6 mg/dL (8.5-10.1); CARBON DIOXIDE 29.4 mmol/L (21.0-32.0); CREATININE - SERUM 0.8 mg/dL (0.6-1.3); PROTEIN - SERUM 5.9 g/dL (6.4-8.2)
[2019-02-22 09:45] VITALS: BP 114/57
--- NOTE | 2019-02-22 10:11 | MORECARE ---
CASE MANAGEMENT DISCHARGE SUMMARY PATIENT: LEXIE MCCLAIN UNIT: [id number] ADM DATE: 02/19/19 AGE: 73 : 43 SEX: F ROOM/BED: D.2228 AUTHOR: ROXANA SHEPHERD PHYSICIAN: REFERRING PHYSICIAN: RADHA MULTANI MD DATE OF SERVICE: 02/22/19 Discharge Plan Patient Name: LEXIE MCCLAIN Facility: [facility]:[place] : 1945 Planned Disposition: Home Hlth Svc w Plan Readm Anticipated Discharge Date: Discharge Date: Expected LOS: Initial Reviewer: [id number] Initial Review Date: 02/19/2019 Generated: 02/22/19 11:11 am Comments DCP- Discharge Planning Updated by [email or web address]: Aan Cárdenas on 02/22/19 9:[address] Patient Name: LEXIE MCCLAIN Admission Status: ER Accout number: [id number] Admission Date: 02-19-2019 : 1945 Admission Diagnosis:NEUTROPENIA, UNSPECIFIED Attending: Radha Multani Current LOS: 3 Anticipated DC Date: Planned Disposition: Home Hlth Svc w Plan Readm Primary Insurance: MEDICARE A & B Discharge Planning Comments: CM MET WITH PATIENT ABOUT DC PLANNING/NEEDS. PLANS TO RETURN HOME AND RESUME HH WITH [facility]. DENIES ANY OTHER NEEDS. CM TO FOLLOW AND ASSIST. Superintendent Refuse Disposal: Ana Cárdenas DCPIA - Discharge Planning Initial Assessment Updated by [email or web address]: Ana Cárdenas on 02/22/19 10:05 am * Is the patient Alert and Oriented? Yes * PCP WILLI * Pharmacy [facility] * Preadmission Environment Home Alone * ADLs Independent * Equipment Walker * List name and contact numbers for known caregivers / representatives who currently or will assist patient after discharge: COLTEN, DAUGHTER, * Community resources currently utilized Home Health * Please name any agencies selected above. [facility] * Additional services required to return to the preadmission environment? Yes * Can the patient safely return to the preadmission environment? Yes Coverage Notice Reviewer: [id number] - Ana Cárdenas Notice Issued Date-Time: 02/22/2019 10:06 Notice Type: Patient Choice Letter Notice Delivered To: Patient Relationship to Patient: Crap Game Box Person Name: Delivery Method: HAND - Hand Delivered Kaya Days: Prior Verbal Notification: Recipient Understood Notice: Yes Recipient Signature: Yes Med Rec Note Co-signed by Attending: Coverage Notice Comment: WANTS TO [facility]ME [facility] Patient Name: LEXIE MCCLAIN Page 11567 at 1011 All edits/amendments must be made on the electronic document DICTATION DATE: 02/22/19 1011 RACK CLEANER: ANA LUISA 02/22/19 1011 RPT#: [id number] DC DATE: STATUS: ADM IN [facility] [address] [place] [address] END OF REPORT
[2019-02-22 13:44] VITALS: BP 165/75
--- NOTE | 2019-02-22 13:45 | NUR ---
PT RESTING IN BED. NO SIGNS OF DISTRESS. IV TO RIGHT FORARM PATENT NO REDNESS OR TENDERNESS. DENIES ANY FURTHER NEED AT THIS TIME. CALL LIGHT IN REACH. BED LOW POSITION. NO FAMILY AT BEDSIDE AT THIS TIME.
--- NOTE | 2019-02-22 14:46 | NUR ---
Nutrition follow-up: Visited with pt during rounds. Pt reports d/c today. Was impacted yesterday buy feels much better today. Diet: Regular - states no much appetite Labs reviewed Wt: 145# RDN following.
--- NOTE | 2019-02-22 15:22 | MORECARE ---
CASE MANAGEMENT DISCHARGE SUMMARY PATIENT: LEXIE MCCLAIN UNIT: [id number] ADM DATE: 02/19/19 AGE: 73 : 43 SEX: F ROOM/BED: D.2228 AUTHOR: ROXANA SHEPHERD PHYSICIAN: REFERRING PHYSICIAN: RADHA MULTANI MD DATE OF SERVICE: 02/22/19 Discharge Plan Patient Name: LEXIE MCCLAIN Facility: [facility]:[place] : 1945 Planned Disposition: Home Hlth Svc w Plan Readm Anticipated Discharge Date: Discharge Date: Expected LOS: Initial Reviewer: [id number] Initial Review Date: 02/19/2019 Generated: 02/22/19 4:22 pm Comments DCP- Discharge Planning Updated by [email or web address]: Ana Cárdenas on 02/22/19 2:[address] Patient Name: LEXIE MCCLAIN Admission Status: ER Accout number: [id number] Admission Date: 02-19-2019 : 1945 Admission Diagnosis:NEUTROPENIA, UNSPECIFIED Attending: Radha Multani Current LOS: 3 Anticipated DC Date: Planned Disposition: Home Hlth Svc w Plan Readm Primary Insurance: MEDICARE A & B Discharge Planning Comments: CM MET WITH PATIENT ABOUT DC PLANNING/NEEDS. PLANS TO RETURN HOME AND RESUME HH WITH [facility]. DENIES ANY OTHER NEEDS. CM TO FOLLOW AND ASSIST. Tire Balancer: Ana Cárdenas Appended by Ana Cárdenas on 02/22/2019 15:20 CDT: [facility] CALLED AND THEY WILL RECHECK WEDNESDAY. STATES THEY WILL RESUME HER CARE WHEN DISCHARGED FROM THE HOSPITAL. DCPIA - Discharge Planning Initial Assessment Updated by [id number]: Ana Cárdenas on 02/22/19 10:05 am * Is the patient Alert and Oriented? Yes * PCP WILLI * Pharmacy [facility] * Preadmission Environment Home Alone * ADLs Independent * Equipment Walker * List name and contact numbers for known caregivers / representatives who currently or will assist patient after discharge: COLTEN, DAUGHTER, * Community resources currently utilized Home Health * Please name any agencies selected above. [facility] * Additional services required to return to the preadmission environment? Yes * Can the patient safely return to the preadmission environment? Yes Coverage Notice Reviewer: [id number] Berhane Ana Melia Notice Issued Date-Time: 02/22/2019 10:06 Notice Type: Patient Choice Letter Notice Delivered To: Patient Relationship to Patient: Mail Processing Clerk Name: Delivery Method: HAND - Hand Delivered Kaya Days: Prior Verbal Notification: Recipient Understood Notice: Yes Recipient Signature: Yes Med Rec Note Co-signed by Attending: Coverage Notice Comment: WANTS [facility] Last DP export: 02/22/19 9:11 a Patient Name: LEXIE MCCLAIN Page [id number] at 1522 All edits/amendments must be made on the electronic document DICTATION DATE: 02/22/191521 MARBLE MACHINE TENDER: ANA LUISA 02/22/19 152 RPT#: [id number] DC DATE: STATUS: ADM IN [facility] [address] [place] [address] END OF REPORT
[2019-02-22] MEDS ORDERED: Nystatin Oral Susp [ PO (16:10)
[2019-02-22] MEDS ORDERED: Augmentin 500-125 TA PO (16:11)
--- NOTE | 2019-02-22 16:42 | MORECARE ---
CASE MANAGEMENT DISCHARGE SUMMARY PATIENT: LEXIE MCCLAIN UNIT: [id number] ADM DATE: 02/19/19 AGE: 73 : 43 SEX: F ROOM/BED: D.2228 AUTHOR: ROXANA SHEPHERD PHYSICIAN: REFERRING PHYSICIAN: RADHA MULTANI MD DATE OF SERVICE: 02/22/19 Discharge Plan Patient Name: LEXIE MCCLAIN Facility: [facility]:[place] : 1945 Planned Disposition: Home Hlth Svc w Plan Readm Anticipated Discharge Date: Discharge Date: Expected LOS: Initial Reviewer: [id number] Initial Review Date: 02/19/2019 Generated: 02/22/19 5:42 pm Comments DCP- Discharge Planning Updated by [email or web address]: Ana Cárdenas on 02/22/19 3:[address] Patient Name: LEXIE MCCLAIN Admission Status: ER Accout number: [id number] Admission Date: 02-19-2019 : 1945 Admission Diagnosis:NEUTROPENIA, UNSPECIFIED Attending: Radha Multani Current LOS: 3 Anticipated DC Date: Planned Disposition: Home Hlth Svc w Plan Readm Primary Insurance: MEDICARE A & B Discharge Planning Comments: CM MET WITH PATIENT ABOUT DC PLANNING/NEEDS. PLANS TO RETURN HOME AND RESUME HH WITH [facility]. DENIES ANY OTHER NEEDS. CM TO FOLLOW AND ASSIST. Drain Tile Press Operator: Ana Cárdenas Appended by Ana Cárdenas on 02/22/2019 15:20 CDT: [facility] CALL[facility] AND THEY WILL RECHECK WEDNESDAY. STATES THEY WILL RESUME HER CARE WHEN DISCHARGED FROM THE HOSPITAL. Appended by Ana Cárdenas on 02/22/2019 16:37 CDT: [facility] WITH [facility] STATES THEY WILL SCHEDULE SOC [facility]. DCPIA - Discharge Planning Initial Assessment Updated by [email or web address]: Ana Cárdenas on 02/22/19 10:05 am * Is the patient Alert and Oriented? Yes * PCP WILLI * Pharmacy [facility] * Preadmission Environment Home Alone * ADLs Independent * Equipment Walker * List name and contact numbers for known caregivers / representatives who currently or will assist patient after discharge: COLTEN, DAUGHTER, * Community resources currently utilized Home Health * Please name any agencies selected above. [facility] * Additional services required to return to the preadmission environment? Yes * Can the patient safely return to the preadmission environment? Yes Coverage Notice Reviewer: [id number] Berhane Cárdenas Notice Issued Date-Time: 02/22/2019 10:06 Notice Type: Patient Choice Letter Notice Delivered To: Patient Relationship to Patient: Collarette Separator Name: Delivery Method: HAND - Hand Delivered Kaya Days: Prior Verbal Notification: Recipient Understood Notice: Yes Recipient Signature: Yes Med Rec Note Co-signed by Attending: Coverage Notice Comment: WANTS TO [facility] Reviewer: [id number] Berhane Cárdenas Notice Issued Date-Time: 02/22/2019 16:37 Notice Type: IM Discharge Notice Notice Delivered To: Patient Relationship to Patient: Self Collarette Separator Name: Delivery Method: HAND - Hand Delivered Kaya Days: Prior Verbal Notification: Recipient Understood Notice: Yes Recipient Signature: Yes Med Rec Note Co-signed by Attending: Coverage Notice Comment: Last DP export: 02/22/19 2:22 p Patient Name: LEXIE MCCLAIN Page 89350 at 1642 All edits/amendments must be made on the electronic document DICTATION DATE: 02/22/191641 CUSTOMER SERVICES COORDINATOR: ANA LUISA 02/22/191641 RPT#: [id number] DC DATE: STATUS: ADM IN [facility] [address] [place] [address] END OF REPORT
--- NOTE | 2019-02-22 16:50 | MORECARE ---
CASE MANAGEMENT DISCHARGE SUMMARY PATIENT: LEXIE MCCLAIN UNIT: [id number] ADM DATE: 02/19/19 AGE: 73 : 43 SEX: F ROOM/BED: D.2228 AUTHOR: ROXANA SHEPHERD PHYSICIAN: REFERRING PHYSICIAN: RADHA MULTANI MD DATE OF SERVICE: 02/22/19 Discharge Plan Patient Name: LEXIE MCCLAIN Facility: [facility]:[place] : 1945 Planned Disposition: Home Hlth Svc w Plan Readm Anticipated Discharge Date: Discharge Date: Expected LOS: Initial Reviewer: [id number] Initial Review Date: 02/19/2019 Generated: 02/22/19 5:49 pm Comments DCP- Discharge Planning Updated by [email or web address]: Ana Cárdenas on 02/22/19 3:[address] Patient Name: LEXIE MCCLAIN Admission Status: ER Accout number: [id number] Admission Date: 02-19-2019 : 1945 Admission Diagnosis:NEUTROPENIA, UNSPECIFIED Attending: Radha Multani Current LOS: 3 Anticipated DC Date: Planned Disposition: Home Hlth Svc w Plan Readm Primary Insurance: MEDICARE A & B Discharge Planning Comments: CM MET WITH PATIENT ABOUT DC PLANNING/NEEDS. PLANS TO RETURN HOME AND RESUME HH WITH [facility]. DENIES ANY OTHER NEEDS. CM TO FOLLOW AND ASSIST. Marketing Segment Manager: Ana Cárdenas Appended by Ana Cárdenas on 02/22/2019 15:20 CDT: [facility] CALL[facility] AND THEY WILL RECHECK WEDNESDAY. STATES THEY WILL RESUME HER CARE WHEN DISCHARGED FROM THE HOSPITAL. Appended by Ana Cárdenas on 02/22/2019 16:37 CDT: [facility] WITH [facility] STATES THEY WILL SCHEDULE SOC [facility]. DCPIA - Discharge Planning Initial Assessment Updated by [email or web address]: Ana Cárdenas on 02/22/19 10:05 am * Is the patient Alert and Oriented? Yes * PCP WILLI * Pharmacy [facility] * Preadmission Environment Home Alone * ADLs Independent * Equipment Walker * List name and contact numbers for known caregivers / representatives who currently or will assist patient after discharge: COLTEN, DAUGHTER, * Community resources currently utilized Home Health * Please name any agencies selected above. [facility] * Additional services required to return to the preadmission environment? Yes * Can the patient safely return to the preadmission environment? Yes External Providers External Provider: [facility] Next Contact Date: Service Request Date: Service Type: Resolution: Reviewer: Comments: Coverage Notice Reviewer: [id number] Berhane Cárdenas Notice Issued Date-Time: 02/22/2019 10:06 Notice Type: Patient Choice Letter Notice Delivered To: Patient Relationship to Patient: Wheel Tuner Name: Delivery Method: HAND - Hand Delivered Kaya Days: Prior Verbal Notification: Recipient Understood Notice: Yes Recipient Signature: Yes Med Rec Note Co-signed by Attending: Coverage Notice Comment: WANTS TO [facility] Reviewer: [id number] Berhane Cárdenas Notice Issued Date-Time: 02/22/2019 16:37 Notice Type: IM Discharge Notice Notice Delivered To: Patient Relationship to Patient: Self Wheel Tuner Name: Delivery Method: HAND - Hand Delivered Kaya Days: Prior Verbal Notification: Recipient Understood Notice: Yes Recipient Signature: Yes Med Rec Note Co-signed by Attending: Coverage Notice Comment: Last DP export: 02/22/19 3:42 p Patient Name: LEXIE MCCLAIN Page [phone] at 1650 All edits/amendments must be made on the electronic document DICTATION DATE: 02/22/191648 REGIONAL VICE PRESIDENT LIFE SALES: ANA LUISA 02/22/191648 RPT#: [id number] DC DATE: STATUS: ADM IN [facility] [address] [place] [address] END OF REPORT
--- NOTE | 2019-02-22 17:01 | NUR ---
DISCHARGE INSTRUCTIONS. SEEMS TO MER INSTRUCTIONS. IV OUT TIP INTACT. LEFT WITH HOSPITAL STAFF TO GO HOME IN PERSONAL RIDE.
--- NOTE | 2019-03-02 08:22 | MORECARE ---
CASE MANAGEMENT DISCHARGE SUMMARY PATIENT: LEXIE MCCLAIN UNIT: [id number] ADM DATE: 02/19/19 AGE: 73 : 43 SEX: F ROOM/BED: D.2228 AUTHOR: ROXANA SHEPHERD PHYSICIAN: REFERRING PHYSICIAN: RADHA MULTANI MD DATE OF SERVICE: 03/02/19 Discharge Plan Patient Name: LEXIE MCCLAIN Facility: [facility]:[place] : 1945 Planned Disposition: Home Hlth Svc w Plan Readm Anticipated Discharge Date: Discharge Date: 02/22/2019 Expected LOS: 0 Initial Reviewer: [email or web address] Initial Review Date: 02/19/2019 Generated: 03/02/19 9:22 am Comments DCP- Discharge Planning Updated by [email or web address]: Ana Cárdenas on 02/22/19 3:[address] Patient Name: LEXIE MCCLAIN Admission Status: ER Accout number: [id number] Admission Date: 02-19-2019 : 1945 Admission Diagnosis:NEUTROPENIA, UNSPECIFIED Attending: Radha Multani Current LOS: 3 Anticipated DC Date: Planned Disposition: Home Hlth Svc w Plan Readm Primary Insurance: MEDICARE A & B Discharge Planning Comments: CM MET WITH PATIENT ABOUT DC PLANNING/NEEDS. PLANS TO RETURN HOME AND RESUME HH WITH [facility]. DENIES ANY OTHER NEEDS. CM TO FOLLOW AND ASSIST. Home Service Technician: Ana Cárdenas Appended by Ana Cárdenas on 02/22/2019 15:20 CDT: [facility] CALL[facility] AND THEY WILL RECHECK WEDNESDAY. STATES THEY WILL RESUME HER CARE WHEN DISCHARGED FROM THE HOSPITAL. Appended by Ana Cárdenas on 02/22/2019 16:37 CDT: [facility] STATES THEY WILL SCHEDULE SOC [facility]. DCPIA - Discharge Planning Initial Assessment Updated by [email or web address]: Ana Cárdenas on 02/22/19 10:05 am * Is the patient Alert and Oriented? Yes * PCP WILLI * Pharmacy [facility] * Preadmission Environment Home Alone * ADLs Independent * Equipment Walker * List name and contact numbers for known caregivers / representatives who currently or will assist patient after discharge: COLTEN, DAUGHTER, * Community resources currently utilized Home Health * Please name any agencies selected above. [facility] * Additional services required to return to the preadmission environment? Yes * Can the patient safely return to the preadmission environment? Yes Coverage Notice Reviewer: [id number] Berhane Cárdenas Notice Issued Date-Time: 02/22/2019 10:06 Notice Type: Patient Choice Letter Notice Delivered To: Patient Relationship to Patient: Bath Steward Name: Delivery Method: HAND - Hand Delivered Kaya Days: Prior Verbal Notification: Recipient Understood Notice: Yes Recipient Signature: Yes Med Rec Note Co-signed by Attending: Coverage Notice Comment: [facility]S TO [facility] Reviewer: [id number] Berhane Cárdenas Notice Issued Date-Time: 02/22/2019 16:37 Notice Type: IM Discharge Notice Notice Delivered To: Patient Relationship to Patient: Self Bath Steward Name: Delivery Method: HAND - Hand Delivered Kaya Days: Prior Verbal Notification: Recipient Understood Notice: Yes Recipient Signature: Yes Med Rec Note Co-signed by Attending: Coverage Notice Comment: Last DP export: 02/22/19 3:50 p Patient Name: LEXIE MCCLAIN Page 04549 at 0822 All edits/amendments must be made on the electronic document DICTATION DATE: 03/02/19821 GREEN BUILDING ENERGY ENGINEER: ANA LUISA 03/02/19821 RPT#: [id number] DC DATE:02/22/19 STATUS: DIS IN [facility] [address] [place] [address] END OF REPORT
== END 2019-02-22 17:02 | disposition home health service (06) | DRG 864 ==
LOC: D.ER 19:48 → D.MS 21:43
PROVIDERS: Family Medicine; ADMIT Internal Medicine Hematology & Oncology; ATTEND Internal Medicine Hematology & Oncology
DX: R50.9 Fever, unspecified (principal); E43 Unspecified severe protein-calorie malnutrition; C83.30 Diffuse large B-cell lymphoma, unspecified site; D64.81 Anemia due to antineoplastic chemotherapy; G89.29 Other chronic pain; E78.5 Hyperlipidemia, unspecified; D72.829 Elevated white blood cell count, unspecified; Z68.24 Body mass index [BMI] 24.0-24.9, adult

== ENCOUNTER → 2019-07-07 08:21 | Outpatient (CLI) | payer MEDICARE, BC ==
[2019-02-20 18:09] VITALS: BMI 24.1
[~2019-07-07 08:21] MED LIST changes: +Augmentin 500-125 TA PO; +Nystatin Oral Susp [ PO
== END | disposition home or self-care (01) ==
LOC: D.MRI 08:21
PROVIDERS: ATTEND Family Medicine
DX: S32.9XXD Fracture of unspecified parts of lumbosacral spine and pelvis, subsequent encounter for fracture with routine healing (principal); C83.30 Diffuse large B-cell lymphoma, unspecified site

== ENCOUNTER → 2020-01-15 14:14 | Outpatient (CLI) | payer MEDICARE, BC ==
[2019-02-20 18:09] VITALS: BMI 24.1
== END | disposition home or self-care (01) ==
LOC: D.CT 14:14
PROVIDERS: ATTEND Internal Medicine Hematology & Oncology
DX: C83.36 Diffuse large B-cell lymphoma, intrapelvic lymph nodes (principal)

== ENCOUNTER 2020-02-14 15:30 | Outpatient (CLI) | payer MEDICARE, BC ==
[2019-02-20 18:09] VITALS: BMI 24.1
== END 2020-02-14 23:59 | disposition home or self-care (01) ==
LOC: D.MAMMO 15:30
PROVIDERS: ATTEND Family Medicine
DX: Z12.31 Encounter for screening mammogram for malignant neoplasm of breast (principal)